=== PATIENT | male | born 1930 | race American Indian/Alaskan Native ===

== ENCOUNTER 2017-06-18 11:37 | Inpatient (IN) | payer MEDICARE, OTHER ==
[~2017-06-18] VITALS: Ht 188 cm; Wt 128.1 kg
--- OUTSIDE RECORDS SUMMARY | ~2017-06-18 | XMS | Clinical Summary ---
Demographics + + + | Address | [address] | | | [place] [address] | + + + | Home Phone | | + + + | Preferred Language | Unknown | + + + | Marital Status | | + + + | Christian Affiliation | Unknown | + + + [...] Phone | + + +---------+ + | Marcial FRANCIS | ECON | Unknown | | + + +---------+ + Care Team Providers + +------+ + | Care Library Specialist Name | Role | Phone | + +------+ + | No Pcp Per Patient | PP | Unavailable | + +------+ + Source Comments M[facility]IT is fully live on both [facility] Amb[facility] and [facility] InPatient.[facility]3] Allergies + + + + + + | Active Allergy | Reactions | Severity | Noted | Comments | | | | | Date | | + + + + + + | Morphine | Pruritus | | 02/16/20 | | | | | | 05 | | + + + + + + Current Medications + + +-------+---------+------+------+-------+ | Prescription | Sig. | Disp. | Refills | Star | End | Statu | | | | | | t | Date | s | | | | | | Date | | | + + +-------+---------+------+------+-------+ | VICODIN 5 MG-500 | 2 PO QID | | | | | Activ | | MG TAB | | | | | | e | + + +-------+---------+------+------+-------+ | NEURONTIN 600 MG | 2 PO TID | | | | | Activ | | TAB | | | | | | e | + + +-------+---------+------+------+-------+ | PAROXETINE HCL OR | None Entered | | | | | Activ | | | | | | | | e | + + +-------+---------+------+------+-------+ | METFORMIN 1,000 MG | 1 PO Q day | | | | | Activ | | TAB | | | | | | e | + + +-------+---------+------+------+-------+ | ASPIRIN 325 MG | 1 PO Q day | | | | | Activ | | ORAL TAB | | | | | | e | + + +-------+---------+------+------+-------+ | NAPROXEN MISC | unknown dose BID | | | | | Activ | | | | | | | | e | + + +-------+---------+------+------+-------+ Active Problems + + + | Problem | Noted Date | + + + | Postherpetic neuralgia | 2005 | + + + + + | Overview: Right C3 distribution | + + + + + | Diabetes mellitus, type II (HCC) | 2005 | + + + | Obesity | 2005 | + + + | Alcoholism (HCC) | 2005 | + + + + + | Overview: long-term remission | + + + + + | Old myocardial infarction | 2005 | + + + | Depression | 2005 | + + + | Diabetic neuropathy (HCC) | 2005 | + + + | [...] on file | | + + + Plan of Treatment + + + + + | Health Maintenance | Due Date | Last Done | Comments | + + + + + | INFLUENZA VACCINE | | | | | (FLU SHOT) | 7 | | | + + + + + Results Not on filefrom Last 3 Months"
--- OUTSIDE RECORDS SUMMARY | ~2017-06-18 | XMS | Clinical Summary ---
Demographics + + + | Address | [address] | | | [place] [address] | + + + | Home Phone | | + + + | Preferred Language | Unknown | + + + | Marital Status | | + + + | Latter-Day Affiliation | Unknown | + + + [...] Team Providers + +------+ + | Care Elevator Operator Freight Name | Role | Phone | + +------+ + | No Pcp Per Patient | PP | Unavailable | + +------+ + Source Comments MOHIT is fully live on both [facility] Amb[facility] and [facility] InPatient.[facility] Allergies + + + + + + [...]
--- OUTSIDE RECORDS SUMMARY | ~2017-06-18 | XMS | Clinical Summary ---
Demographics + + + | Address | [address] | | | [place] [address] | + + + | Home Phone | | + + + | Preferred Language | Unknown | + + + | Marital Status | | + + + | Tenriism Affiliation | Unknown | + + + [...] Team Providers + +------+ + | Care Clinical Geneticist Name | Role | Phone | + +------+ + | No Pcp Per Patient | PP | Unavailable | + +------+ + Source Comments MOHIT is fully live on both [facility] Ambulatory and [facility] InPatient.[facility] Allergies + + + + [...]
[~2017-06-18 11:37] MED LIST: ASPIRIN325 MG PO; B-12 DOTS500 MCG PO; CALTRATE 600 +1 EAC1 PO; COLACE100 MG PO; CYMBALTA30 MG PO; GLUCOPHAGE850 MG PO; HYDROCHLOROTHIA25 MG PO; LANTUS100 UNITS/ SUB-Q; MULTIVITAMINS1 EAC8 PO; PRILOSEC20 MG PO; SANCTURA XR60 MG PO; VITAMIN D2000 UNIT PO; ZESTRIL5 MG PO
[2017-06-18] MEDS ORDERED: SYNTHROID25 MCG PO (12:49)
[2017-06-20] MEDS ORDERED: GLUCOPHAGE850 MG PO (11:26)
[2017-06-20] MEDS ORDERED: VITAMIN B-12500 MCG PO (11:27)
[2017-06-20] MEDS ORDERED: NOVOLOG FL100 UNIT/1 SUB-Q (11:29)
[2017-06-22] MEDS ORDERED: CEFPODOXIME PR200 MG PO (12:08)
[2017-06-22] MEDS ORDERED: RELENZA5 MG INH (12:09)
[2017-06-22] MEDS ORDERED: METOPROLOL SUC100 MG PO (12:09)
== END 2017-06-22 13:35 | disposition home or self-care (01) | DRG 871 ==
LOC: ED 11:37 → CCU 16:15 → MS 06-19 18:20
PROVIDERS: ADMIT Internal Medicine
DX: A41.89 Other specified sepsis (principal); J09.X1 Influenza due to identified novel influenza A virus with pneumonia; G93.41 Metabolic encephalopathy; I47.1 Supraventricular tachycardia; I12.9 Hypertensive chronic kidney disease with stage 1 through stage 4 chronic kidney disease, or unspecified chronic kidney disease; N18.3 Chronic kidney disease, stage 3 (moderate); E11.9 Type 2 diabetes mellitus without complications; E03.9 Hypothyroidism, unspecified; F03.90 Unspecified dementia, unspecified severity, without behavioral disturbance, psychotic disturbance, mood disturbance, and anxiety; Z79.4 Long term (current) use of insulin; Z79.84 Long term (current) use of oral hypoglycemic drugs; Z88.0 Allergy status to penicillin; M25.561 Pain in right knee; M25.562 Pain in left knee; M25.572 Pain in left ankle and joints of left foot; M25.571 Pain in right ankle and joints of right foot; I27.20 Pulmonary hypertension, unspecified; L50.0 Allergic urticaria; T37.5X5A Adverse effect of antiviral drugs, initial encounter; R45.1 Restlessness and agitation
CPT/HCPCS: 36415; 51702; 51798; 71045; 73560; 73610; 73630; 80053; 81001; 83605; 83735; 83880; 85025; 87040; 87502; 93306; 94668; 97116; 97162; J0456; J0696; J1630; J1650; J1956; J3475; J7050; J7120

== ENCOUNTER 2018-09-27 20:10 | Inpatient (IN) | payer MEDICARE, OTHER ==
[~2018-09-27] VITALS: Ht 182.9 cm; Wt 129.5 kg
--- OUTSIDE RECORDS SUMMARY | ~2018-09-27 | XMS | Encounter Summary ---
Demographics + + + | Address | [address] | | | [place] [address] | + + + | Home Phone | | + + + | Preferred Language | Unknown | + + + | Marital Status | | + + + | Zoroastrian Affiliation | PRE | + + + | Race | White | + + + | Ethnic Group | Not or | + + + Author + + + | Author | [facility] | + + + | Organization | [facility] | + + + | Address | Unknown | + + + | Phone | Unavailable | + + + Support + + +---------+ + | Name | Relationship | Address | Phone | + + +---------+ + | Marnie Ontiveros | ECON | Unknown | | + + +---------+ + Care Team Providers + +------+ + | Care Body Maker Machine Setter Name | Role | Phone | + +------+ + PCP | Unavailable | + +------+ + Encounter Details +--------+ + + + + | Date | Type | Department | Care Team | Description | +--------+ + + + + | 02/15/ | Abstract | [facility] | Shelodn Hawkins MD | | | 2004 | | Center Outpatient | [address] | | | | | Therapy Center [address] | [place], [place] | | | | | [address] | [address] | | | | | Outpatient Therapy | [phone] | | | | | Center 2nd floor | | | | | | Mailcode: OP26 | | | | | | [place], [place] | | | | | | [address] | | | | | | [phone] | | | +--------+ + + + + Social History + +-------+ +--------+------+ | Tobacco Use | Types | Packs/Day | Years | Date | | | | | Used | | + +-------+ +--------+------+ | Never Assessed | | | | | + +-------+ +--------+------+ + + + | Sex Assigned at | Date Recorded | | | | + + + | Not on file | | + + + + + + + | Job Start Date | Occupation | Industry | + + + + | Not on file | Not on file | Not on file | + + + + + + + + | Travel History | Travel Start | Travel End | + + + + + + | No recent travel history available. | + + documented as of this encounter Plan of Treatment Not on filedocumented as of this encounter Visit Diagnoses Not on filedocumented in this encounter"
--- OUTSIDE RECORDS SUMMARY | ~2018-09-27 | XMS | Encounter Summary ---
Demographics + + + | Address | [address] | | | [place] [address] | + + + | Home Phone | | + + + | Preferred Language | Unknown | + + + | Marital Status | | + + + | Yarsanism Affiliation | PRE | + + + | Race | White | + + + | Ethnic Group | Not or | + + + Author + + + | Author | [facility] | + + + | Organization | [facility] | + + + | Address | Unknown | + + + | Phone | Unavailable | + + + Support + + +---------+ + | Name | Relationship | Address | Phone | + + +---------+ + | Marnie Ontiveros | ECON | Unknown | | + + +---------+ + Care Team Providers + +------+ + | Care Campaign Director Name | Role | Phone | + +------+ + | Christiano Wood DO | PCP | | + +------+ + Reason for Visit AUTH/CERT +--------+--------+ + + + + | Status | Reason | Specialty | Diagnoses / | Referred By | Referred To | | | | | Procedures | Contact | Contact | +--------+--------+ + + + + | | | | | | | +--------+--------+ + + + + Encounter Details +--------+ + + + + | Date | Type | Department | Care Team | Description | +--------+ + + + + | 03/09/ | Hospital | [facility] | Emil Parsons MD | | | 2018 | Encounter | [address] | | | | | [address] [place], [place] | | | | | [facility] | [address] | | | | | Rachel Jain | [phone] | | | | | [place] [id number] | | | | | | [phone] | | | +--------+ + + + + Social History + +-------+ +--------+------+ | Tobacco Use | Types | Packs/Day | Years | Date | | | | | Used | | + +-------+ +--------+------+ | Never Smoker | | | | | + +-------+ +--------+------+ + +---+---+---+ | Smokeless Tobacco: | | | | | Never Used | | | | + +---+---+---+ + + +---------+ + | Alcohol Use | Drinks/Week | oz/Week | Comments | + + +---------+ + | No | | | | + + +---------+ + + + + | Sex Assigned at [...] + + documented as of this encounter Last Filed Vital Signs + + + + + | Vital Sign | Reading | Time Taken | Comments | + + + + + | Blood Pressure | 130/68 | 03/09/2018 12:57 PM | | | | | PST | | + + + + + | Pulse | 57 | 03/09/2018 12:57 PM | | | | | PST | | + + + + + | Temperature | 36.5 C (97.7 F) | 03/09/2018 12:57 PM | | | | | PST | | + + + + + | Respiratory Rate | 16 | 03/09/2018 12:57 PM | | | | | PST | | + + + + + | Oxygen Saturation | 97% | 03/09/2018 12:57 PM | | | | | PST | | + + + + + | Inhaled Oxygen | - | - | | | Concentration | | | | + + + + + | Weight | 127 kg (280 lb) | 03/09/2018 10:09 AM | | | | | PST | | + + + + + | Height | 188 cm (6' 2") | 03/09/2018 10:09 AM | | | | | PST | | + + + + + | Body Mass Index | 35.95 | 03/09/2018 10:09 AM | | | | | PST | | + + + + + documented in this encounter Discharge Instructions Instructions Samia Gómez RN - 03/09/2018Home Care after Eyelid Surgery Do not drive, drink alcoholic beverages, sign legal documents or make major decisions ilene christianson the next 24 hours. Call your doctor if you notice any unusual symptoms. Remember: You are under the influence of medications. You may resume your normal diet and medications. Caring for Your Eyelid(s) Use ice packs intermittently (10 min. on and 10 min. off) as much as possible for the next 72 hours when awake. Dressings Wear eye patches at night while sleeping for one week to protect the incisions Eye Medication Apply eye ointment in BOTH eyes twice a day Apply ointment to suture line twice a day To help prevent infection: ? Always wash your hands before caring for your eyes or using eye medicine. ? Do not touch any part of your eye skin with the tip of the eye medicine bottle or tube. Avoid the following Rubbing your eye Do not lift anything over 20 lbs Swimming Sports or heavy exercise Eye makeup or lotions around eyes Dust, dirt or sand into the operated area Other Things to Remember Sleep on 2-3 pillows for the next week to minimize swelling Avoid direct sunlight. Wear a wide-brimmed hat or sunglasses if you must go in the sun. Do not use any aspirin, aspirin containing products or anti-inflammatory medications Call your doctor if Temperature above 101 degrees (fever) Purulent drainage (which is drainage that is whitish-vanegas or greenish in color) from the surgical site If there is increased redness at the edges of the surgical site Increased pain, even with pain medication Increasing pain, swelling or redness Any visual changes, some blurring is normal Extreme swelling, some swelling is normal How to reach your doctor Monday through Monday, 8am-5pm, call All other hours including after hours, weekends and holidays, call and ask t he shredder/granulator operator to page the Eye Doctor insolvency practitioner. documented in this encounter Medications at Time of Discharge + + + +---------+ + + | Medication | Sig | Dispensed | Refills | Start | End Date | | | | | | Date | | + + + +---------+ + + | ASPIRIN 325 MG | 1 PO Q day | | 0 | | | | ORAL TAB | | | | | | + + + +---------+ + + | cyanocobalamin 500 | Take 500 mcg by | | 0 | | | | mcg oral tablet | mouth once daily. | | | | | + + + +---------+ + + | DULoxetine 30 mg | Take 30 mg by mouth | | 0 | | | | oral capsule,delayed | once daily. | | | | | | release(DR/EC) | | | | | | + + + +---------+ + + | ergocalciferol | Take 2,000 Units by | | 0 | | | | (vitamin D2) | mouth. | | | | | | (VITAMIN D ORAL) | | | | | | + + + +---------+ + + | | Take 1 tablet by | 10 | 0 | 03/09/20 | | | HYDROcodone-acetamin | mouth every four | tablet | | 18 | | | ophen 5-325 mg oral | hours as needed for | | | | | | tablet | severe pain. Do not | | | | | | | exceed 3000mg | | | | | | | acetaminophen in a | | | | | | | 24 hour period | | | | | + + + +---------+ + + | insulin glargine | Inject under the | | 0 | | | | 100 unit/mL | skin (SUBC) once | | | | | | subcutaneous | daily at bedtime. | | | | | | solution | | | | | | + + + +---------+ + + | levothyroxine 25 | Take 25 mcg by mouth | | 0 | | | | mcg oral tablet | before breakfast. | | | | | + + + +---------+ + + | | Take 1 tablet by | | 0 | | | | losartan-hydrochloro | mouth once daily. | | | | | | thiazide 50-12.5 mg | | | | | | | oral tablet | | | | | | + + + +---------+ + + | METFORMIN 1,000 MG | 1 PO Q day | | 0 | | | | TAB | | | | | | + + + +---------+ + + | metoprolol | Take 50 mg by mouth | | 0 | | | | succinate 50 mg oral | once daily. | | | | | | tablet extended | | | | | | | release 24 hr | | | | | | + + + +---------+ + + | | Apply a thin film to | 3.5 g | 1 | 03/09/20 | | | nyfqkogl-yqxdxckrr-x | eyelid incisions | | | 18 | | | examethasone 3.5 | twice daily for two | | | | | | mg/g-10,000 | weeks. OK for | | | | | | unit/g-0.1 % | pharmacist to | | | | | | ophthalmic (eye) | substitute a | | | | | | ointment | different ophthalmic | | | | | | | ointment if needed | | | | | + + + +---------+ + + | NEURONTIN 600 MG | 2 PO TID | | 0 | | | | TAB | | | | | | + + + +---------+ + + | PAROXETINE HCL OR | None Entered | | 0 | | | + + + +---------+ + + documented as of this encounter Plan of Treatment Not on filedocumented as of this encounter Procedures + +--------+ + + + | Procedure Name | Priori | Date/Time | Associated Diagnosis | Comments | | | ty | | | | + +--------+ + + + | PROCEDURE NOTE | Routin | 03/09/2018 | | Results for this | | | e | 12:57 PM | | procedure are in the | | | | PST | | results section. | + +--------+ + + + | CAPILLARY BLOOD | Routin | 03/09/2018 | Degenerative | Results for this | | GLUCOSE (NO CHG), | e | 12:11 PM | disorder of eyelid | procedure are in the | | POC | | PST | | results section. | + +--------+ + + + | DIRECT BROWLIFT WITH | Electi | 03/09/2018 | Dermatochalasis of | | | BLEPHAROPLASTY | ve | 11:09 AM | both upper eyelids | | | | Surgic | PST | Brow ptosis | | | | al | | | | + +--------+ + + + +---+--------+ | | | | | Specia | | | l | | | Needs | | | CO2 | | | LASER | +---+--------+ + +--------+ +---+ + | CAPILLARY BLOOD | Routin | 03/09/2018 | | Results for this | | GLUCOSE (NO CHG), | e | 10:29 AM | | procedure are in the | | POC | | PST | | results section. | + +--------+ +---+ + documented in this encounter Results PROCEDURE NOTE (03/09/2018 12:57 PM PST) + + + | Narrative | Performed At | + + + | Emil Parsons MD 03/09/2018 2:02 PM Date of procedure: | | | 03/09/18 Attending Surgeon: Emil Parsons M.D. Preoperative | | | Diagnosis: 1. Bilateral brow ptosis 2. Bilateral upper lid | | | dermatochalasis Postoperative Diagnosis: 1. Bilateral brow | | | ptosis 2. Bilateral upper lid dermatochalasis Procedure: 1. | | | Bilateral direct brow lift 2. Bilateral upper lid blepharoplasty | | | Anesthesia: Local infiltration of a 1:1 mixture of 2% lidocaine with | | | epinephrine 1:100,000 and 0.5% Marcaine with Monitored Anesthesia | | | Care Estimated Blood Loss: Minimal Complications: None | | | Specimens: none Indications: This is a patient with bilateral | | | brow ptosis and upper lid dermatochalasis interfering with vision. | | | The procedure, alternatives and risks were discussed with the | | | patient at length, and the patient decided to proceed with surgery | | | as described below. The potential for prominent, permanent forehead | | | scars was discussed at length with the patient. Procedure: | | | Prior to the procedure, the operative plan and correct site were | | | confirmed by the surgeon. The patient was placed in the supine | | | position on the operating table. Attention was directed to the | | | temporal aspect of the brows, where a skin marking pen was used to | | | bernabe a supraciliary incision, and to the upper lids, where the | | | natural lid crease was marked. The amount of skin to be removed was | | | judged a ellipse was marked on each side. These areas were | | | infiltrated with the above named local anesthetic solution. | | | Attention was first directed to the left brow, where the CO2 laser | | | was used to incise the skin as marked. A sharp scissors was used to | | | excise a skin-fat flap, and meticulous hemostasis was maintained at | | | all times with judicious use of the cautery. Dissection continued | | | down to the orbital rim, where the arcus marginalis was released, | | | permitting elevation of the brow. The brow was lifted and secured to | | | the periosteum of the forehead with multiple 5-0 vicryl | | | sutures. The wound was then closed with multiple interrupted 5-0 | | | vicryl sutures in a layered, buried fashion. The skin was then | | | closed with a running horizontal mattress 5-0 fast absorbing gut | | | suture to deon the wound edges. Attention was then directed to | | | the right brow, where the CO2 laser was used to incise the skin as | | | marked. A sharp scissors was used to excise a skin-fat flap, and | | | meticulous hemostasis was maintained at all times with judicious use | | | of the cautery.Dissection continued down to the orbital rim, where | | | the arcus marginalis was released, permitting elevation of the brow. | | | The brow was lifted and secured to the periosteum of the forehead | | | with multiple 5-0 vicryl sutures. The wound was then closed | | | with multiple interrupted 5-0 vicryl sutures in a layered, buried | | | fashion. The skin was then closed with a running horizontal mattress | | | 5-0 fast absorbing gut suture to deon the wound edges. This | | | provided a nice symmetric elevation of the brows. Attention was | | | then directed to the right and left upper lids, where the amount of | | | skin to be removed with the blepharoplasty was marked using a | | | calipers. Eye mejia were placed and removed before the end of the | | | case. Attention was first directed to the right upper lid, where | | | the skin incisions were made with the CO2 laser. A high-temperature | | | cautery unit was used to excise a skin-muscle flap, and meticulous | | | hemostasis was maintained with judicious use of the cautery. The | | | orbital septum was incised,, and the central and nasal fat pads | | | were conservatively debulked. After meticulous hemostasis was | | | confirmed, the skin was closed with a running 5-0 fast absorbing gut | | | suture. Attention was then directed to the left upper lid where | | | the skin incisions were made with the CO2 laser. A high-temperature | | | cautery unit was used to excise a skin-muscle flap, and meticulous | | | hemostasis was maintained with judicious use of the cautery. The | | | orbital septum was incised, and the central and nasal fat pads were | | | conservatively debulked. After meticulous hemostasis was confirmed, | | | the skin was closed with a running 5-0 fast absorbing gut suture. | | | The drapes were removed, surgical area cleaned, and ophthalmic | | | ointment was applied to the wounds. The patient was awakened and | | | transported to the recovery room, having tolerated the procedure | | | well. Emil A. Parsons, M.D. Sports Attorney Ophthalmic | | | Facial Plastic and Reconstructive Surgery | | + + + CAPILLARY BLOOD GLUCOSE (NO CHG), POC (03/09/2018 12:11 PM PST) + +---------+ + + + | Component | Value | Ref Range | Performed | Pathologist | | | | | At | Signature | + +---------+ + + + | BLOOD | 129 (H) | 60 - 99 mg/dL | [facility] | | | GLUCOSE, | | | [place] | | | POC | | | [facility] | | | | | | OF CARE | | | | | | TESTS | | + +---------+ + + + + + | Specimen | + + | | + + + + + + + | Performing | Address | City/State/Zipcode | Phone Number | | Organization | | | | + + + + + | [facility] | [address] | [place], [place] | | | [facility] [place] | [facility] | [address] | | | TESTS | | | | + + + + + CAPILLARY BLOOD GLUCOSE (NO CHG), POC (03/09/2018 10:29 AM PST) + +---------+ + + + | Component | Value | Ref Range | Performed | Pathologist | | | | | At | Signature | + +---------+ + + + | BLOOD | 147 (H) | 60 - 99 mg/dL | [facility] | | | GLUCOSE, | | | [place] | | | POC | | | [facility] | | | | | | OF CARE | | | | | | TESTS | | + +---------+ + + + + + | Specimen | + + | | + + + + + + + | Performing | Address | City/State/Zipcode | Phone Number | | Organization | | | | + + + + + | [facility] | 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 | + + documented in this encounter Administered Medications + +--------+---------+------+------+------+ | Medication Order | MAR | Action | Dose | Rate | Site | | | Action | Date | | | | + +--------+---------+------+------+------+ + +---+ | HYDROcodone-acetaminophen | | | (NORCO) 5-325 mg tablet 1-2 | | | tablet 1-2 tablet, oral, | | | NEEDED, 1 dose, Starting Fri | | | 03/09/18 at 1200, Until Fri | | | 03/09/18 at 1859, post-op moderate | | | pain | | + +---+ | | | + +---+ | oxyCODONE (immediate release) | | | (ROXICODONE) tablet 5-10 mg 5-10 | | | mg, oral, NEEDED, 1 dose, | | | Starting Mon03/09/18 at 1200, | | | Until Mon03/09/18 at 1859, | | | post-op severe pain | | + +---+ | | | + +---+ + +---------+ + + +---+ | sodium chloride 0.9 % (NS) IV | New Bag | 03/09/20 | 10 mL/hr | 10 mL/hr | | | infusion 10 mL/hr, intravenous, | | 18 10:53 | | | | | CONTINUOUS, Starting Mon03/09/18 | | AM PST | | | | | at 1130, Until Mon03/09/18 at | | | | | | | 1859 | | | | | | + +---------+ + + +---+ +---+---+ | | | +---+---+ documented in this encounter
--- OUTSIDE RECORDS SUMMARY | ~2018-09-27 | XMS | Encounter Summary ---
Demographics + + + | Address | [address] | | | [place] [address] | + + + | Home Phone | | + + + | Preferred Language | Unknown | + + + | Marital Status | | + + + | Episcopal Affiliation | PRE | + + + | Race | White | + + + | Ethnic Group | Not or | + + + Author + + + | Author | [facility] | + + + | Organization | [facility] | + + + | Address | Unknown | + + + | Phone | Unavailable | + + + Support + + +---------+ + | Name | Relationship | Address | Phone | + + +---------+ + | Marnie Ontiveros | ECON | Unknown | | + + +---------+ + Care Team Providers + +------+ + | Care Network Administrator Name | Role | Phone | + +------+ + | Christiano Wood DO | PCP | | + +------+ + Encounter Details +--------+ + + + + | Date | Type | Department | Care Team | Description | +--------+ + + + + | 03/09/ | Pharmacy | [facility] | | | | 2018 | Visit | [address] | | | | | | [address] | | | | | | [place], [place] | | | | | | [address] | | | | | | [phone] | | | +--------+ + + + [...]
--- OUTSIDE RECORDS SUMMARY | ~2018-09-27 | XMS | Encounter Summary ---
Demographics + + + | Address | [address] | | | [place] [address] | + + + | Home Phone | | + + + | Preferred Language | Unknown | + + + | Marital Status | | + + + | Advent Affiliation | PRE | + + + | Race | White | + + + | Ethnic Group | Not or | + + + Author + + + | Author | [facility] | + + + | Organization | [facility] | + + + | Address | Unknown | + + + | Phone | Unavailable | + + + Support + + +---------+ + | Name | Relationship | Address | Phone | + + +---------+ + | Marnie Ontiveros | ECON | Unknown | | + + +---------+ + Care Team Providers + +------+ + | Care Pediatric Nurse Practitioner Name | Role | Phone | + +------+ + | Nina Christiano | PCP | | + +------+ + Encounter Details +--------+ + + + + | Date | Type | Department | Care Team | Description | +--------+ + + + + | 02/15/ | Ancillary | Registration [id number] | | | | 2004 | Registratio | Samina [address] | | | | | n | [facility] Mailcode: | | | | | | [id number] [place], [place] | | | | | | [address] | | | | | | [phone] | | | +--------+ + + + [...]
--- OUTSIDE RECORDS SUMMARY | ~2018-09-27 | XMS | Encounter Summary ---
Demographics + + + | Address | [address] | | | [place] [address] | + + + | Home Phone | | + + + | Preferred Language | Unknown | + + + | Marital Status | | + + + | Restoration Affiliation | PRE | + + + | Race | White | + + + | Ethnic Group | Not or | + + + Author + + + | Author | [facility] | + + + | Organization | [facility] | + + + | Address | Unknown | + + + | Phone | Unavailable | + + + Support + + +---------+ + | Name | Relationship | Address | Phone | + + +---------+ + | Marnie Ontiveros | ECON | Unknown | | + + +---------+ + Care Team Providers + +------+ + | Care Certified Novell Administrator Name | Role | Phone | + +------+ + | Christiano Wood DO | PCP | | + +------+ + Encounter Details +--------+---------+ + + + | Date | Type | Department | Care Team | Description | +--------+---------+ + + + | 01/16/ | Office | [facility] | Emil Parsons MD | Brow ptosis (Primary | | 2018 | Visit | [facility] | [address] | Dx); | | | | [address] | [place], [place] | Dermatochalasis of | | | | [facility] | [address] | both upper eyelids | | | | [facility] | [phone] | | | | | [place], [place] | | | | | | [address] | | | | | | [phone] | | | +--------+---------+ + + + Social History + +-------+ +--------+------+ | Tobacco Use | Types | Packs/Day | Years | Date | | | | | Used | | + +-------+ +--------+------+ | Never Smoker | | | | | + +-------+ +--------+------+ + +---+---+---+ | Smokeless Tobacco: | | | | | Never Used | | | | + +---+---+---+ + + + | Sex Assigned at [...] + + documented as of this encounter Progress Notes Ana Fuentes - 01/16/2018 10:40 AM PDT03/09/18 CEI Bilateral direct brow lift ( temporal) MAC Bilateral upper lid blepharoplasty Needs consent GaveLTP H&P w/ PCP HR post op On asa to check with doctor on directions on stopping Emil Grissom MD - 2017 10:40 AM PDT Abisai Ontiveros is a 87 y.o. male. Referred by: Trever Parker Pain: No pain (0 of 0-10) Patient is referred for evaluation of progressively droopy eyelids that interfere with visi on. This is bothersome all the time, interferes with the peripheral vision, especially notic es it when reading and driving, very bothersome. He notes he can see much better if he manually holds the saggy skin up. Denies myasthenia gravis symptoms, no current thyroid issues. Review of systems: Medications, allergies, medical, surgical and family history were review ed by me at this visit utilizing a written patient history form. Pertinent positives noted in history. All else unless noted was negative (fever, wt. change, ENT, cardiovascular, respiratory, GI , urinary, skin, muscle, bones, joints, neurologic, behavioral,endocrine, psychiatric, bleed ing/blood disorders, AIDS/HIV, cancer or tumors, arthritis) Pertinent positives in the family history noted in history. All else unless noted was negative (endocrine, cancer or tumors, cardiovascular, cataracts, retina, strabismus, amblyopia, low vision or blindness, refractive error, glaucoma, color o r night blindness or unexplained vision loss). Exam: The patient is alert and oriented x 3. Visual Acuity: Vacc PH RE LE 20/50 20/30 Pupil Exam: PERRL No APD Motility: RE LE 0 0 0 0 0 0 0 0 Lid Measurements: RE (mm) LE (mm) Sup SS Crease HT VPF 5 6 LF 15 15 MRDI 0 1 Inf SS Lag 0 0 The MRD1 improves when the weight of the brow ptosis and dermatochalasis is manually eleva enmanuel. Facial Exam: Brow ptosis compensated by frontalis effort. +temporal hooding impacting lateral gaze, worse on right Bilateral upper lid dermatochalasis with skin resting on lashes and mechanical ptosis Adenopathy: None SLE: C/S quiet without masses OU K clear without infiltrate OU AC Deep and quiet OU Iris without neovascularization OU Lens PCIOL OU Ta 14 OD 14 OS Posterior segment: M&N OU @ 10:50 Vitreous: clear, both eyes. Fundus: Optic disc: 0.3 cup/disc ratio, pink, flat, both eyes. Macula: no edema or exudates, both eyes. Vessels: no notching or hemorrhage, both eyes. Periphery: flat 360 without breaks or tears, both eyes. Basal Tear Secretion Test: RE 24, LE 24 External photos taken OU today. Photos demonstrate bilateral brow ptosis and upper lid lior matochalasis Visual field testing today with Goldmann III4e untaped and taped shows an improvement from 4 degrees above the horizon to 51 degrees OD and 11 degrees to 47 degrees OS. Impression: Bilateral brow ptosis, visually significant, with temporal hooding affecting lateral gaze Bilateral upper lid dermatochalasis, visually significant Plan: Bilateral direct brow lift (temporal) Bilateral upper lid blepharoplasty MAC The procedure, alternatives and risks were discussed with the patient, including potential need for additional surgery, bleeding, infection, vision loss including blindness, pain, ner ve damage, and asymmetry. Questions were answered and patient wishes to proceed with surgery . No anticoagulants including aspirin, NSAIDS, vitamin E, HERBS, etc. perioperatively. Encour aged patient to check with PCP regarding prescription anticoagulant use prior to surgery. We discussed that if the patient needs to stay on anticoagulants perioperatively, the patient understands and accepts the increased risk of complications. Physician attestation: I have reviewed and edited history and imaging technician documentation, and performed all elements to above examination documentation. Emil Parsons M.D. Correspondence Representative Ophthalmic Facial Plastic and Reconstructive Surgery documented in this encounter Plan of Treatment Not on filedocumented as of this encounter Procedures + +--------+ + + + | Procedure Name | Priori | Date/Time | Associated Diagnosis | Comments | | | ty | | | | + +--------+ + + + | PA EXTERNAL PHOTOS | Routin | 01/16/2018 | Brow ptosis | | | | e | 11:08 AM | Dermatochalasis of | | | | | PDT | both upper eyelids | | + +--------+ + + + documented in this encounter Visit Diagnoses + + | Diagnosis | + + | Brow ptosis - Primary Unspecified ptosis of eyelid | + + | Dermatochalasis of both upper eyelids | + + documented in this encounter"
--- OUTSIDE RECORDS SUMMARY | ~2018-09-27 | XMS | Encounter Summary ---
Demographics + + + | Address | [address] | | | [place] [address] | + + + | Home Phone | | + + + | Preferred Language | Unknown | + + + | Marital Status | | + + + | Hoahaoism Affiliation | PRE | + + + | Race | White | + + + | Ethnic Group | Not or | + + + Author + + + | Author | [facility] | + + + | Organization | [facility] | + + + | Address | Unknown | + + + | Phone | Unavailable | + + + Support + + +---------+ + | Name | Relationship | Address | Phone | + + +---------+ + | Marnie Ontiveros | ECON | Unknown | | + + +---------+ + Care Team Providers + +------+ + | Care Senior Licensing Manager Name | Role | Phone | + +------+ + | No Pcp Per Patient | PCP | Unavailable | + +------+ + Encounter Details +--------+ + + + + | Date | Type | Department | Care Team | Description | +--------+ + + + + | 04/02/ | Results | NON-[facility] | Ez Ruby MD | | | 2014 | Only | Department | [facility] PHYS[facility]IAN | | | | | | MED GROUP [address] | | | | | | [address] | | | | | | [place] | | | | | | [address] | | | | | | | | +--------+ + + + [...] | + +--------+ + + + | X-RAY EYE DETECTION | Priori | 04/02/2015 | | Results for this | | FOREIGN BODY BI | ty | 9:57 AM | | procedure are in the | | | | PST | | results section. | + +--------+ + + + documented in this encounter Results X-RAY EYE DETECTION FOREIGN BODY BI (04/02/2015 9:57 AM PST) + + + + + + | Component | Value | Ref Range | Performed | Pathologist | | | | | At | Signature | + + + + + + | EYE | EXAM: EYE DETECTION | | | | | DETECTION | FOREIGN BODY BI 04/02/15 | | | | | FOREIGN | 09:57:00 COMPARISON: | | | | | BODY BI | None. HISTORY: Evaluate | | | | | | for metallic orbital | | | | | | foreign body prior to | | | | | | MRI. FINDINGS AND | | | | | | IMPRESSION: No | | | | | | radiopaque orbital | | | | | | foreign body is | | | | | | present. Osseous | | | | | | structures | | | | | | areunremarkable. | | | | | | Attending Radiologists: | | | | | | ALISSA NORRIS MDAuthor: | | | | | | ALISSA NORRIS MD I | | | | | | personally reviewed the | | | | | | images and, if | | | | | | necessary, edited the | | | | | | report. I agreewith the | | | | | | report as now presented. | | | | | | | | | | | | Final/Electronically | | | | | | signed / ALISSA | | | | | | JR 04/02/2015 10:01 | | | | | | AM | | | | + + + + + + + + | Specimen | + + | | + + + +---------+ + + | Performing | Address | City/State/Zipcode | Phone Number | | Organization | | | | + +---------+ + + | [facility] DEPARTMENT OF | | | | | RADIOLOGY | | | | + +---------+ + + documented in this encounter Visit Diagnoses Not on filedocumented in this encounter"
--- OUTSIDE RECORDS SUMMARY | ~2018-09-27 | XMS | Encounter Summary ---
Demographics + + + | Address | [address] | | | [place] [address] | + + + | Home Phone | | + + + | Preferred Language | Unknown | + + + | Marital Status | | + + + | Mormon Affiliation | PRE | + + + | Race | White | + + + | Ethnic Group | Not or | + + + Author + + + | Author | [facility] | + + + | Organization | [facility] | + + + | Address | Unknown | + + + | Phone | Unavailable | + + + Support + + +---------+ + | Name | Relationship | Address | Phone | + + +---------+ + | Marnie Ontiveros | ECON | Unknown | | + + +---------+ + Care Team Providers + +------+ + | Care Permanent Mold Supervisor Name | Role | Phone | + +------+ + | Christiano Wood DO | PCP | | + +------+ + Reason for Referral Diagnostic Testing (Routine) +--------+--------+ + + + + | Status | Reason | Specialty | Diagnoses / | Referred By | Referred To | | | | | Procedures | Contact | Contact | +--------+--------+ + + + + | Closed | | Radiology | Diagnoses | [place], | | | | | | Acoustic | Ez Ceja MD | | | | | | neuroma | [facility] | | | | | | ([facility]) | PHYSICIAN | | | | | | Procedures | MED GROUP | | | | | | MRI BRAIN | [address] | | | | | | [address] | [address] | | | | | | | [place] | | | | | | | [place] | | | | | | | [address] | | | | | | | Phone: | | | | | | | [phone] | | | | | | | Fax: | | | | | | | [phone] | | +--------+--------+ + + + + Encounter Details +--------+ + + + + | Date | Type | Department | Care Team | Description | +--------+ + + + + | 03/16/ | Outside | Diagnostic Imaging | Ez Ruby MD | | | 2015 | Referral | Services at [facility] | [facility] PHYSICIAN | | | | Order | [address] | MED GROUP [facility] [address] | | | | | [facility] | [facility] [address] | | | | | Mailcode: [address] [facility] [address] | [place] | | | | | [facility], | [address] | | | | | [place] [address] | | | | | | [phone] | | | +--------+ + + + [...] Not on filedocumented as of this encounter Results MRI BRAIN WWO CONTRAST (04/02/2015 3:16 PM PST) + + + + + + | Component | Value | Ref Range | Performed | Pathologist | | | | | At | Signature | + + + + + + | MR BRAIN | A EXAM: MRI IAC | | | | | WWO | without and with | | | | | CONTRAST | contrast HISTORY: Left | | | | | | acoustic neuroma | | | | | | COMPARISON: No relevant | | | | | | priors. | | | | | | TECHNIQUE: Multiplana | | | | | | r multi-sequence MRI of | | | | | | the internal auditory | | | | | | canalswithout and with | | | | | | gadolinium based | | | | | | intravenous contrast. | | | | | | FINDINGS: Internal | | | | | | auditory canals | | | | | | including 7th and 8th | | | | | | nerves: Within the left | | | | | | internalauditory canal, | | | | | | there is a T2 | | | | | | hypointense enhancing | | | | | | ovoid nodule measuring | | | | | | 0.6x 1.3 cm which | | | | | | demonstrates a tail | | | | | | extending toward the | | | | | | vestibule.Cochlea: | | | | | | normalVestibule: | | | | | | normalSemicircular | | | | | | canals: | | | | | | normalEndolymphatic sac: | | | | | | not dilated Visualized | | | | | | brain and soft tissues: | | | | | | Periventricular and | | | | | | subcortical | | | | | | U3koyqlxwgieal foci are | | | | | | noted, likely secondary | | | | | | to small vessel ischemic | | | | | | change.No abnormal | | | | | | enhancing lesion | | | | | | identified within the | | | | | | brain parenchyma. 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 | | | | | | Attending Radiologists: | | | | | | RAPHAEL FOX, | | | | | | ALLEGRAuthor: STEPHIE | | | | | | MD MARILYN I | | | | | | [...] Final/Electronically | | | | | | sera / RAPHAEL | | | | | | DOMINIQUE 04/02/2015 17:19 | | | | | | PM Pending final | | | | | | approval / STEPHIE | | | | | | MARILYN 04/02/2015 | | | | | | 16:38 PM Preliminary | | | | | | / STEPHIE MARILYN | | | | | | 04/02/2015 16:17 PM | | | | + + + + + + + + | Specimen | + + | | + + + +---------+ + + | Performing | Address | City/State/Zipcode | Phone Number | | Organization | | | | + +---------+ + + | [facility] DEPARTMENT OF | | | | | RADIOLOGY | | | | + +---------+ + + documented in this encounter Visit Diagnoses + + | Diagnosis | + + | 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
--- OUTSIDE RECORDS SUMMARY | ~2018-09-27 | XMS | Encounter Summary ---
Demographics + + + | Address | [address] | | | [place] [address] | + + + | Home Phone | | + + + | Preferred Language | Unknown | + + + | Marital Status | | + + + | Yarsani Affiliation | Unknown | + + + | Race | Unknown | + + + | Ethnic Group | Unknown | + + + Author + + + | Author | [facility] | + + + | Organization | [facility] | + + + | Address | Unknown | + + + | Phone | Unavailable | + + + Support + + + + + | Name | Relationship | Address | Phone | + + + + + | Marcial Ontiveros | ECON | [address] | | | | | [place], | | | | | [place] [address] | | + + + + + Care Team Providers + +------+ + | Care Hog Man Name | Role | Phone | + +------+ + | Christiano Wood DO | PCP | | + +------+ + Reason for Visit +--------+ + | Reason | Comments | +--------+ + | Other | [facility] | +--------+ + Encounter Details +--------+ + + + + | Date | Type | Department | Care Team | Description | +--------+ + + + + | 07/05/ | Documentati | [facility] [place] | Nerissa Rodrigues, | Other ([facility] | | 2019 | on Only | [facility] [place] | [facility] | brandon) | | | | [address] | | | | | | [place], [place] | | | | | | [address] | | | | | | [phone] | | | +--------+ + + + [...] on file | | + + + as of this encounter Plan of Treatment +--------+---------+ + + + | Date | Type | Specialty | Care Team | Description | +--------+---------+ + + + | 12/13/ | Office | Cardiology | Pricilla Wahl DO | | | 2019 | Visit | | [address] | | | | | | [place] | | | | | | [id number] | | | | | | | | +--------+---------+ + + + as of this encounter Visit Diagnoses Not on filein this encounter"
--- OUTSIDE RECORDS SUMMARY | ~2018-09-27 | XMS | Encounter Summary ---
Demographics + + + | Address | [address] | | | [place] [address] | + + + | Home Phone | | + + + | Preferred Language | Unknown | + + + | Marital Status | | + + + | Jainism Affiliation | PRE | + + + [...] Team Providers + +------+ + | Care Non Categorical Preschool Teacher Name | Role | Phone | + +------+ + | No Pcp Per Patient | PCP | Unavailable | + +------+ + Encounter Details +--------+ + + + + | Date | Type | Department | Care Team | Description | +--------+ + + + + | 01/09/ | Abstract | [facility] | Emil Parsons MD | | | 2018 | | [place] | [address] | | | | | Oculoplastics at | Blvd [place], [place] | | | | | [facility] [address] | [address] | | | | | [address] [facility] | [phone] | | | | | Mailcode: [facility] | | | | | | [place], [place] | | | | | | [address] | | | | | | [phone] | | | +--------+ + + + [...]
--- OUTSIDE RECORDS SUMMARY | ~2018-09-27 | XMS | Encounter Summary ---
Demographics + + + | Address | [address] | | | [place] [address] | + + + | Home Phone | | + + + | Preferred Language | Unknown | + + + | Marital Status | | + + + | Hinduism Affiliation | PRE | + + + | Race | White | + + + | Ethnic Group | Not or | + + + Author + + + | Author | [facility] | + + + | Organization | [facility] | + + + | Address | Unknown | + + + | Phone | Unavailable | + + + Support + + +---------+ + | Name | Relationship | Address | Phone | + + +---------+ + | Marnie Ontiveros | ECON | Unknown | | + + +---------+ + Care Team Providers + +------+ + | Care Assessment Counselor Name | Role | Phone | + +------+ + | No Pcp Per Patient | PCP | Unavailable | + +------+ + Reason for Visit Diagnostic Testing (Routine) + +--------+ + + + + | Status | Reason | Specialty | Diagnoses / | Referred By | Referred To | | | | | Procedures | Contact | Contact | + +--------+ + + + + | Canceled | | Radiology | Diagnoses | [place], | | | | | | Acoustic | Ez Ceja MD | | | | | | neuroma | [facility] | | | | | | ([facility]) | PHYSICIAN | | | | | | Procedures | MED GROUP | | | | | | MRI BRAIN | [address] | | | | | | [address] | [address] | | | | | | | [place] | | | | | | | [place] | | | | | | | [address] | | | | | | | Phone: | | | | | | | [phone] | | | | | | | Fax: | | | | | | | [phone] | | + +--------+ + + + + Encounter Details +--------+ + + + + | Date | Type | Department | Care Team | Description | +--------+ + + + + | 04/02/ | Hospital | Radiology/Imaging | | Canceled (Scheduling | | 2014 | Encounter | Lab at [facility] [address] | | error) | | | | [address] | | | | | | Mailcode: [address] | | | | | | [facility] | | | | | | and Healing, 3rd | | | | | | Floor [place], [place] | | | | | | [address] | | | | | | [phone] | | | +--------+ + + + [...] + + documented as of this encounter Medications at Time of Discharge + + + +---------+--------+ + | Medication | Sig | Dispensed | Refills | Start | End Date | | | | | | Date | | + + + +---------+--------+ + | ASPIRIN 325 MG | 1 PO Q day | | 0 | | | | ORAL TAB | | | | | | + + + +---------+--------+ + | METFORMIN 1,000 MG | 1 PO Q day | | 0 | | | | TAB | | | | | | + + + +---------+--------+ + | NEURONTIN 600 MG | 2 PO TID | | 0 | | | | TAB | | | | | | + + + +---------+--------+ + | PAROXETINE HCL OR | None Entered | | 0 | | | + + + +---------+--------+ + documented as of this encounter Plan of Treatment Not on filedocumented as of this encounter Procedures + +--------+ + + + | Procedure Name | Priori | Date/Time | Associated Diagnosis | Comments | | | ty | | | | + +--------+ + + + | CREATININE, POC | Routin | 04/02/2015 | Acoustic neuroma | Results for this | | | e | 9:39 AM | (HCC) | procedure are in the | | | | PST | | results section. | + +--------+ + + + documented in this encounter Results ROUTINE CHEMISTRY TESTS (RADIOLOGY), POC (04/02/2015 9:39 AM PST) + +---------+ + + + | Component | Value | Ref Range | Performed | Pathologist | | | | | At | Signature | + +---------+ + + + | CREATININE, | 1.5 (H) | 0.7 - 1.3 mg/dL | [facility] | | | POC | | | POINT OF | | | | | | CARE TESTS | | + +---------+ + + + + + | Specimen | + + | | + + + + + + + | Performing | Address | City/State/Zipcode | Phone Number | | Organization | | | | + + + + + | [facility] | [address] | [place] [address] | | | OF CARE TESTS | | | | + + + + + documented in this encounter Visit Diagnoses + + | Diagnosis | + + | 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
--- OUTSIDE RECORDS SUMMARY | ~2018-09-27 | XMS | Encounter Summary ---
Demographics + + + | Address | [address] | | | [place] [address] | + + + | Home Phone | | + + + | Preferred Language | Unknown | + + + | Marital Status | | + + + | Synagogue Affiliation | PRE | + + + | Race | White | + + + | Ethnic Group | Not or | + + + Author + + + | Author | [facility] | + + + | Organization | [facility] | + + + | Address | Unknown | + + + | Phone | Unavailable | + + + Support + + +---------+ + | Name | Relationship | Address | Phone | + + +---------+ + | Marnie Ontiveros | ECON | Unknown | | + + +---------+ + Care Team Providers + +------+ + | Care Geothermal Electrical Engineer Name | Role | Phone | + [...] | | | | | n | [facility] Mailcode: | | | | | | [id number] [place], [place] | | | | | | [address] | | | | | | [phone] | | | +--------+ + + + [...]
--- OUTSIDE RECORDS SUMMARY | ~2018-09-27 | XMS | Encounter Summary ---
Demographics + + + | Address | [address] | | | [place] [address] | + + + | Home Phone | | + + + | Preferred Language | Unknown | + + + | Marital Status | | + + + | Jain Affiliation | PRE | + + + | Race | White | + + + | Ethnic Group | Not or | + + + Author + + + | Author | [facility] | + + + | Organization | [facility] | + + + | Address | Unknown | + + + | Phone | Unavailable | + + + Support + + +---------+ + | Name | Relationship | Address | Phone | + + +---------+ + | Marnie Ontiveros | ECON | Unknown | | + + +---------+ + Care Team Providers + +------+ + | Care Exchange Teller Name | Role | Phone | + +------+ + | Christiano Wood DO | PCP | | + +------+ + Reason for Visit + + + | Reason | Comments | + + + | Pre-Admission | | + + + Encounter Details +--------+ + + + + | Date | Type | Department | Care Team | Description | +--------+ + + + + | 01/19/ | PreAdmit | [facility] | Emil Parsons MD | Pre-Admission | | 2018 | Orders | [place] | [address] | | | | | Oculoplastics at | [address]vd [place], [place] | | | | | [address] | [address] | | | | | [address] | [phone] | | | | | Mailcode: [address] | | | | | | [place], [place] | | | | | | [address] | | | | | | [phone] | | | +--------+ + + + [...] filedocumented as of this encounter Visit Diagnoses + + | Diagnosis | + + | Degenerative disorder of eyelid - Primary Unspecified degenerative disorder of eyelid | + + documented in this encounter"
--- OUTSIDE RECORDS SUMMARY | ~2018-09-27 | XMS | Encounter Summary ---
Demographics + + + | Address | [address] | | | [place] [address] | + + + | Home Phone | | + + + | Preferred Language | Unknown | + + + | Marital Status | | + + + | Nondenominational Affiliation | Unknown | + + + | Race | Unknown | + + + | Ethnic Group | Unknown | + + + Author + + + | Author | [facility] | + + + | Organization | [facility] | + + + | Address | Unknown | + + + | Phone | Unavailable | + + + Support + + + + + | Name | Relationship | Address | Phone | + + + + + | Marcial Ontiveros | ECON | [address] | | | | | [place], | | | | | [place] [address] | | + + + + + Care Team Providers + +------+ + | Care Boat Worker Name | Role | Phone | + [...] + | 07/05/ | Documentati | [facility] [place] | Nerissa Rodrigues, | Other ([facility] | | 2019 | on Only | [facility] [place] | [facility] | brandon) | | | | [address] | | | | | | [place], [place] | | | | | | [address] | | | | | | [phone] | | | +--------+ + + + [...] [place] | | | | | | [id number] | | | | | | | | +--------+---------+ + + + as of this encounter Visit Diagnoses Not on filein this encounter"
--- OUTSIDE RECORDS SUMMARY | ~2018-09-27 | XMS | Encounter Summary ---
Demographics + + + | Address | [address] | | | [place] [address] | + + + | Home Phone | | + + + | Preferred Language | Unknown | + + + | Marital Status | | + + + | Mandaeism Affiliation | PRE | + + + | Race | White | + + + | Ethnic Group | Not or | + + + Author + + + | Author | [facility] | + + + | Organization | [facility] | + + + | Address | Unknown | + + + | Phone | Unavailable | + + + Support + + +---------+ + | Name | Relationship | Address | Phone | + + +---------+ + | Marnie Ontiveros | ECON | Unknown | | + + +---------+ + Care Team Providers + +------+ + | Care Imcu Specialist Name | Role | Phone | + [...] Pre-Admission | | 2018 | Orders | [place] | [address] | | | | | Oculoplastics at | Blvd [place], [place] | | | | | [address] | [address] | | | | | [address] | [phone] | | | | | Mailcode: [address] | | | | | | [place], [place] | | | | | | [address] | | | | | | [phone] | | | +--------+ + + + [...]
--- OUTSIDE RECORDS SUMMARY | ~2018-09-27 | XMS | Encounter Summary ---
Demographics + + + | Address | [address] | | | [place] [address] | + + + | Home Phone | | + + + | Preferred Language | Unknown | + + + | Marital Status | | + + + | Temple Affiliation | PRE | + + + | Race | White | + + + | Ethnic Group | Not or | + + + Author + + + | Author | [facility] | + + + | Organization | [facility] | + + + | Address | Unknown | + + + | Phone | Unavailable | + + + Support + + +---------+ + | Name | Relationship | Address | Phone | + + +---------+ + | Marnie Ontiveros | ECON | Unknown | | + + +---------+ + Care Team Providers + +------+ + | Care Med Admin Name | Role | Phone | + +------+ + PCP | Unavailable | + +------+ + Encounter Details +--------+ + + + + | Date | Type | Department | Care Team | Description | +--------+ + + + + | 04/19/ | Office | [facility] | Note, Outpatient | Progress Note | | 2000 | Visit-Trans | MEDICINE | Clinic | | | | cribed | | | | +--------+ + + [...] documented as of this encounter Progress Notes Interface, Poison Information Specialist In - 01/23/2006 2:33 AM PDTCLINIC DATE: 04/19/2001 OTOLARYNGOLOGY CLINIC SUBJECTIVE: Mr. Ontiveros is a 71-year-old [place]ian male who about 5 years ago noted a slight decrease in his hearing in the left ear. He was able to hear out of it, but there was a mild distortion. He did not follow through. This was noted on audiogram but no workup was done at particular time, and he has been followed subsequent to that. He has some dizziness off and on for about a year which is related to his diabetes and was mainly lightheadedness. He had no difficulty or instability walking, however. Occasionally, he has noted recently some tinnitus involving the left ear which is mild. He has basically been almost completely asymptomatic. PAST MEDICAL HISTORY: His past history is negative for ear disease. He does have past history of head injury with being knocked out on several occasions over 20 years ago. At that time, he had some difficulty with alcohol. 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 FAMILY HISTORY: Positive for hearing loss both in his mother and his father. 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 He had an MRI which was done in [place] and tends to show a small lesion in the left internal auditory canal. He is being seen for second opinion with regards to this lesion. REVIEW OF SYSTEMS: He has had EKG several years ago which demonstrated an old heart attack, but he has never had any problems or symptoms related to his heart. No history of high blood pressure. Diabetes was diagnosed about a year ago. He has had recurrent back problem from one time to another starting way back in his 50s and some degenerative disk problems. This is usually associated with sudden onset of inability to move for several days. He denies any pulmonary disease. He has had no gastrointestinal complaints. No genitourinary problems and no neurologic disorders. MEDICATIONS: Metformin 850 mg a day for his diabetes and 1 aspirin a day. PREVIOUS SURGERY: He had knee replacement in 1997. ALLERGIES: HE STATES THAT HE HAS DRUG ALLERGY AND INTOLERANCE TO ALCOHOL. No other medications or allergies. He has had no food allergies and no pollen allergies. SOCIAL HISTORY: He does not smoke. Alcohol: He has taken no alcohol for 20 years, and this is his anniversary day. He takes 5 cups of coffee a day. PHYSICAL EXAMINATION: GENERAL: A very pleasant, alert 71-year-old [place]ian male in no acute distress. HEENT: Ears: Tympanic membranes are intact and normal bilaterally. The canals are clean. There is no dizziness with movement. Nose: Clear without obstruction. Mouth: He is dentulous upper, partial lower. He has good mucosal appearance and good moisture. There is good palatal movement. NECK: He is very heavy-necked individual with some diffuse parotid swelling bilaterally; however, no lesions are palpable. His thyroid is not enlarged. EXTREMITIES: He is able to perform Romberg and tandem Romberg without difficulty, and his gait is within normal. He did not describe historically in review any significant balance disorders. DIAGNOSTIC DATA: His audiogram today was repeated showing a rather profound nerve sensory loss with a SRT of 70 on the left and a discrimination today of only 28%. On the right, he has an high-frequency loss above 1000 Hz, but he still has a 35 dB SRT and an 80% discrimination. 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 He also has a left maxillary retention cyst. This tumor appears to be contained within the internal auditory canal, although it is coming just to the mouth of the porus acusticus. ASSESSMENT AND PLAN: At his age, there are several options. He did have asymmetric hearing loss noted about 5 years age ago, and this is documented, so he has a long history of progressive hearing loss which may have been represented by very very slow growth of this tumor, so obviously an option is one of observation and repeat MRI in 1 year. The only disadvantage to this is that the tumor at present time is quite small. It is only coming to the porus acusticus, and that could be removed either by middle meatal or translabyrinthine approach which is somewhat easier and safer for facial nerve. His other options would include translabyrinthine removal of the tumor which probably would be preferable since he has no usable hearing retained in that ear. Posterior fossa and retrolabyrinthine approach is possible, but the lesion extends extremely out to the most lateral portion of the internal auditory canal. Gamma knife therapy was discussed with him in its detail too. This also is a possibility for him, although his hearing will probably be destroyed in this, and if he had revision or recurrent disease it would be difficult to remove the tumor without facial nerve injury. I talked to him to at length about all the potential possibilities and told him that the discussion should probably centered between a translabyrinthine removal of the tumor and/or observation. He will think about this. He was given literature regarding acoustic neuroma, and I told him that if he wanted even further evaluation as to approach or whether or not surgery was indicated, I would not feel uncomfortable if he sought additional opinion. Because of his age of 71 and his history, one might be inclined to observe for a while and repeat his films in another 6 to 9 months. I think this will be done where higher quality and thin cuts can be made through the internal auditory canal. He was discharged with the thought that he would take in the consideration my opinions with regard to it and will be contacting us. Agapito Catherine M.D. MEDARDO / JOHNNA [id number] / [id number] / [id number] / [id number] cc: [place] [address] Tom Ott M.D. [address] [place] [address] [address] [place] [address] [id number] signed by Interface, Poison Information Specialist In at 01/23/2006 2:[address] [facility] in this encounter Plan of Treatment Not on filedocumented as of this encounter Visit Diagnoses Not on filedocumented in this encounter
--- OUTSIDE RECORDS SUMMARY | ~2018-09-27 | XMS | Encounter Summary ---
Demographics + + + | Address | [address] | | | [place] [address] | + + + | Home Phone | | + + + | Preferred Language | Unknown | + + + | Marital Status | | + + + | Muslim Affiliation | PRE | + + + | Race | White | + + + | Ethnic Group | Not or | + + + Author + + + | Author | [facility] | + + + | Organization | [facility] | + + + | Address | Unknown | + + + | Phone | Unavailable | + + + Support + + +---------+ + | Name | Relationship | Address | Phone | + + +---------+ + | Marnie Ontiveros | ECON | Unknown | | + + +---------+ + Care Team Providers + +------+ + | Care Electric Gas Appliances Demonstrator Name | Role | Phone | + +------+ + | Nina Christiano | PCP | | + +------+ + Encounter Details +--------+ + + + + | Date | Type | Department | Care Team | Description | +--------+ + + + + | 03/09/ | Procedure | [facility] | | | | 2018 | Pass | [address] | | | | | | [place] | | | | | | [facility], | | | | | | [place] [address] | | | +--------+ + + + [...]
--- OUTSIDE RECORDS SUMMARY | ~2018-09-27 | XMS | Encounter Summary ---
Demographics + + + | Address | [address] | | | [place] [address] | + + + | Home Phone | | + + + | Preferred Language | Unknown | + + + | Marital Status | | + + + | Tenriism Affiliation | PRE | + + + [...] Team Providers + +------+ + | Care Social Security Benefits Interviewer Name | Role | Phone | + +------+ + | Christiano Wood DO | PCP | | + +------+ + Encounter Details +--------+---------+ + + + | Date | Type | Department | Care Team | Description | +--------+---------+ + + + | 03/20/ | Office | [facility] | Emil Parsons MD | Dermatochalasis of | | 2018 | Visit | [facility] | [address] | both upper eyelids | | | | [address] | [address] [place], [place] | (Primary Dx) | | | | [facility] | [address] | | | | | [facility] | [phone] | | | | | [place] | | | | | | [address] | | | | | | [phone] | | | +--------+---------+ + + + [...] documented as of this encounter Progress Notes Emil Parsons MD - 03/20/2018 9:00 AM PSTFormatting of this note might be different from t he original. Abisai Ontiveros is a 88 y.o. male. Referred by: Trever Parker Pain: No pain (0 of 0-10) Patient is here 11 days s/p Procedure: 03/09/18 Dr. Parsons 1. Bilateral direct brow lift 2. Bilateral upper lid blepharoplasty Patient doing well, already pleased with the improvement in vision. No concerns. Exam: Vision intact Lid Measurements: RE (mm) LE (mm) Sup SS Crease HT VPF 8 8 LF MRDI 3 3 Inf SS Lag 0 0 Incisions healing well Expected postop edema, ecchymosis SLE: C/S quiet OU K clear OU AC D&Q OU Iris nl OU Impression: 1. Doing well 11 days s/p bilateral brow lift and upper lid blepharoplasty 03/09/18 2. History of bilateral brow ptosis and upper lid dermatochalasis, visually significant Plan: Reviewed po instructions F/u with Dr. Parker for eye care RTC with ne prn Physician attestation: I have reviewed and edited history and plant technician documentation, and performed all elements to above examination documentation. Emil Parsons M.D. 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
--- OUTSIDE RECORDS SUMMARY | ~2018-09-27 | XMS | Encounter Summary ---
Demographics + + + | Address | [address] | | | [place] [address] | + + + | Home Phone | | + + + | Preferred Language | Unknown | + + + | Marital Status | | + + + | Uatsdin Affiliation | PRE | + + + | Race | White | + + + | Ethnic Group | Not or | + + + Author + + + | Author | [facility] | + + + | Organization | [facility] | + + + | Address | Unknown | + + + | Phone | Unavailable | + + + Support + + +---------+ + | Name | Relationship | Address | Phone | + + +---------+ + | Marnie Ontiveros | ECON | Unknown | | + + +---------+ + Care Team Providers + +------+ + | Care Grocery Store Bagger Name | Role | Phone | + [...] | | | | | | [address] [place], [place] | | | | | | [address] | | | | | | [phone] | | | +--------+ + + + [...]
--- OUTSIDE RECORDS SUMMARY | ~2018-09-27 | XMS | Encounter Summary ---
Demographics + + + | Address | [address] | | | [place] [address] | + + + | Home Phone | | + + + | Preferred Language | Unknown | + + + | Marital Status | | + + + | Roman Catholic Affiliation | Unknown | + + + | Race | Unknown | + + + | Ethnic Group | Unknown | + + + Author + + + | Author | [facility] | + + + | Organization | [facility] | + + + | Address | Unknown | + + + | Phone | Unavailable | + + + Support + + + + + | Name | Relationship | Address | Phone | + + + + + | Marcial Ontiveros | ECON | [address] | | | | | [place], | | | | | [place] [address] | | + + + + + Care Team Providers + +------+ + | Care Floatman Name | Role | Phone | + [...] + | 07/05/ | Documentati | [facility] | Nerissa Rodrigues, | Other ([facility] | | 2019 | on Only | [facility] [place] | [facility] | brandon) | | | | [address] | | | | | | [place], [place] | | | | | | [address] | | | | | | [phone] | | | +--------+ + + + [...] [place] | | | | | | [address] | | | | | | | | +--------+---------+ + + + as of this encounter Visit Diagnoses Not on filein this encounter"
--- OUTSIDE RECORDS SUMMARY | ~2018-09-27 | XMS | Encounter Summary ---
Demographics + + + | Address | [address] | | | [place] [address] | + + + | Home Phone [...] + + + | Author | [facility] | + + + | Organization | [facility] | + + + | Address | Unknown | + + + | Phone | Unavailable | + + + Support + + +---------+ + | Name | Relationship | Address | Phone | + + +---------+ + | Marnie Ontiveros | ECON | Unknown | | + + +---------+ + Care Team Providers + +------+ + | Care Record Changer Name | Role | Phone | + [...] | | | | | n | [facility] Mailcode: | | | | | | [address] [place], [place] | | | | | | [address] | | | | | | [phone] | | | +--------+ + + + [...]
--- OUTSIDE RECORDS SUMMARY | ~2018-09-27 | XMS | Clinical Summary ---
Demographics + + + | Address | [address] | | | [place] [address] | + + + | Home Phone | | + + + | Preferred Language | Unknown | + + + | Marital Status | | + + + | Mormon Affiliation | PRE | + + + | Race | White | + + + | Ethnic Group | Not or | + + + Author + + + | Author | [facility] | + + + | Organization | [facility] | + + + | Address | Unknown | + + + | Phone | Unavailable | + + + Support + + +---------+ + | Name | Relationship | Address | Phone | + + +---------+ + | Marnie Ontiveros | ECON | Unknown | | + + +---------+ + Care Team Providers + +------+ + | Care Rn Neurosurgical Name | Role | Phone | + +------+ + | Christiano Wood DO | PP | | + +------+ + Source Comments MOHIT is fully live on both [facility] and [facility] InPatient.[facility] Allergies + + + + + + | Active Allergy | Reactions | Severity | Noted | Comments | | | | | Date | | + + + + + + | Morphine | Pruritus | | 02/16/20 | | | | | | 05 | | + + + + + + | Oseltamivir | Pruritus | | 03/09/20 | | | | | | 18 | | + + + + + + Medications + + + +---------+------+------+-------+ | Medication | Sig | Dispensed | Refills | Star | End | Statu | | | | | | t | Date | s | | | | | | Date | | | + + + +---------+------+------+-------+ | NEURONTIN 600 MG | 2 PO TID | | 0 | | | Activ | | TAB | | | | | | e | + + + +---------+------+------+-------+ | PAROXETINE HCL OR | None Entered | | 0 | | | Activ | | | | | | | | e | + + + +---------+------+------+-------+ | METFORMIN 1,000 MG | 1 PO Q day | | 0 | | | Activ | | TAB | | | | | | e | + + + +---------+------+------+-------+ | ASPIRIN 325 MG | 1 PO Q day | | 0 | | | Activ | | ORAL TAB | | | | | | e | + + + +---------+------+------+-------+ | | Take 1 tablet by | 10 | 0 | 11/0 | | Activ | | HYDROcodone-acetamin | mouth every four | tablet | | 9/20 | | e | | ophen 5-325 mg oral | hours as needed for | | | 18 | | | | tablet | severe pain. Do not | | | | | | | | exceed 3000mg | | | | | | | | acetaminophen in a | | | | | | | | 24 hour period | | | | | | + + + +---------+------+------+-------+ | | Apply a thin film to | 3.5 g | 1 | 11/0 | | Activ | | iatcjjcw-bqmzbemzm-e | eyelid incisions | | | 9/20 | | e | | examethasone 3.5 | twice daily for two | | | 18 | | | | mg/g-10,000 | weeks. OK for | | | | | | | unit/g-0.1 % | pharmacist to | | | | | | | ophthalmic (eye) | substitute a | | | | | | | ointment | different ophthalmic | | | | | | | | ointment if needed | | | | | | + + + +---------+------+------+-------+ | levothyroxine 25 | Take 25 mcg by mouth | | 0 | | | Activ | | mcg oral tablet | before breakfast. | | | | | e | + + + +---------+------+------+-------+ | DULoxetine 30 mg | Take 30 mg by mouth | | 0 | | | Activ | | oral capsule,delayed | once daily. | | | | | e | | release(DR/EC) | | | | | | | + + + +---------+------+------+-------+ | ergocalciferol | Take 2,000 Units by | | 0 | | | Activ | | (vitamin D2) | mouth. | | | | | e | | (VITAMIN D ORAL) | | | | | | | + + + +---------+------+------+-------+ | metoprolol | Take 50 mg by mouth | | 0 | | | Activ | | succinate 50 mg oral | once daily. | | | | | e | | tablet extended | | | | | | | | release 24 hr | | | | | | | + + + +---------+------+------+-------+ | cyanocobalamin 500 | Take 500 mcg by | | 0 | | | Activ | | mcg oral tablet | mouth once daily. | | | | | e | + + + +---------+------+------+-------+ | insulin glargine | Inject under the | | 0 | | | Activ | | 100 unit/mL | skin (SUBC) once | | | | | e | | subcutaneous | daily at bedtime. | | | | | | | solution | | | | | | | + + + +---------+------+------+-------+ | | Take 1 tablet by | | 0 | | | Activ | | losartan-hydrochloro | mouth once daily. 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 | + + Last Filed Vital Signs + + + [...] | | + + + + + Plan of Treatment + + + + + | Health Maintenance | Due Date | Last Done | Comments | + + + + + | Pneumococcal | | | | | vaccination (1 of 2 | 5 | | | | - PCV13) | | | | + + + + + | Influenza (Flu) | Completed | 01/25/2018, 02/12/2017, | | | vaccination | | 03/07/2016, Additional history | | | | | exists | | + + + + + Results Not on filefrom Last 3 Months Insurance + +--------+ +--------+ + +--------+ | Payer | Benefi | Subscriber | Effect | Phone | Address | Type | | | t Plan | ID | ninoska | | | | | | / | | Dates | | | | | | Group | | | | | | + +--------+ +--------+ + +--------+ | MEDICARE | MEDICA | xxxxxxxxxxx | 10/30/19 | [phone] | [address] | [address] | | | RE A & | | 00-Pre | [id number] | [address] | | | [address] | | sent | | [place] | | | | | | | | [id number] | | + +--------+ +--------+ + +--------+ | [employer] | [employer] | xxxxxxxxx | 05/01/19 | | | Agency | | SERVICE | | | 18-Pre | | | | | | HEALTH | | sent | | | | | | | | | | | | | | SERVIC | | | | | | | | E | | | | | | + +--------+ +--------+ + +--------+ + +--------+ +--------+ + + | Guarantor Name | Accoun | Relation to | Date | Phone | Billing Address | | | t Type | Patient | of | | | | | | | | | | + +--------+ +--------+ + + | Abisai Ontiveros | Person | Self [birth year] | [address] | | | al/Fam | | 1930 | [phone] | [address] | | | uma | | | [address] (Home) | [place] [address] | + +--------+ +--------+ + + | Abisai Ontiveros | Agency | Self | [birth year] | [address] | | | | | 1930 | [phone] | [address] | | | | | | [address] (Home) | [place] [address] | + +--------+ +--------+ + +
--- OUTSIDE RECORDS SUMMARY | ~2018-09-27 | XMS | Encounter Summary ---
Demographics + + + | Address | [address] | | | [place] [address] | + + + | Home Phone | | + + + | Preferred Language | Unknown | + + + | Marital Status | | + + + | Yazidism Affiliation | PRE | + + + | Race | White | + + + | Ethnic Group | Not or | + + + Author + + + | Author | [facility] | + + + | Organization | [facility] | + + + | Address | Unknown | + + + | Phone | Unavailable | + + + Support + + +---------+ + | Name | Relationship | Address | Phone | + + +---------+ + | Marnie Ontiveros | ECON | Unknown | | + + +---------+ + Care Team Providers + +------+ + | Care Doorshaker Name | Role | Phone | + +------+ + | Christiano Wood DO | PCP | | + +------+ + Encounter Details +--------+ + + + + | Date | Type | Department | Care Team | Description | +--------+ + + + + | 03/14/ | Telephone | [facility] | Emil Parsons MD | | | 2018 | | [place] | [address] | | | | | Oculoplastics at | [address] [place], [place] | | | | | [facility] [address] | [address] | | | | | [address] [facility] | [phone] | | | | | Mailcode: [address] | | | | | | [place], [place] | | | | | | [address] | | | | | | [phone] | | | +--------+ + + + [...]
--- OUTSIDE RECORDS SUMMARY | ~2018-09-27 | XMS | Encounter Summary ---
Demographics + + + | Address | [address] | | | [place] [address] | + + + | Home Phone | | + + + | Preferred Language | Unknown | + + + | Marital Status | | + + + | Amish Affiliation | Unknown | + + + | Race | Unknown | + + + | Ethnic Group | Unknown | + + + Author + + + | Author | [facility] | + + + | Organization | [facility] | + + + | Address | Unknown | + + + | Phone | Unavailable | + + + Support + + + + + | Name | Relationship | Address | Phone | + + + + + | Marcial Ontiveros | ECON | [address] | | | | | [place], | | | | | [place] [address] | | + + + + + Care Team Providers + +------+ + | Care Program Officer Name | Role | Phone | + +------+ + | Christiano Wood DO | PCP | | + +------+ + Reason for Referral Nuclear Medicine (Routine) + +--------+ + + + + | Status | Reason | Specialty | Diagnoses / | Referred By | Referred To | | | | | Procedures | Contact | Contact | + +--------+ + + + + | Pending | | | Diagnoses | Maryuri, | | | Review | | | Abnormal | DO Pricilla | | | | | | EKG Chest | [address] | | | | | | pain, | [address] | | | | | | unspecified | [address] [address] | | | | | | type | [place] | | | | | | Procedures | [id number] | | | | | | [place] | Phone: | | | | | | [employer]ic | [phone] | | | | | | al (stress | Fax: | | | | | | and rest) | [phone] | | + +--------+ + + + + Reason for Visit Consult and Treat (Routine) +--------+--------+ + + + + | Status | Reason | Specialty | Diagnoses / | Referred By | Referred To | | | | | Procedures | Contact | Contact | +--------+--------+ + + + + | Closed | | Cardiology | Diagnoses | Nina, | Wahl, | | | | | R94.31 | DO Christiano | DO Pricilla | | | | | (ICD-10-CM) | [address] | [address] | | | | | - Abnormal | [address] | [place] | | | | | electrocardi | [address] | [place], [place] | | | | | ogram (ECG) | [place], | [address] Phone: | | | | | (EKG | [place] [address] | [phone] | | | | | Procedures | Phone: | Fax: | | | | | CRD CONSULT | [phone] | [phone] | | | | | | Fax: | | | | | | | [phone] | | +--------+--------+ + + + + Encounter Details +--------+ + + + + | Date | Type | Department | Care Team | Description | +--------+ + + + + | 08/30/ | Initial | [facility] | Pricilla Wahl DO | Abnormal EKG | | 2019 | consult | Cardiology [place] | [address] | (Primary Dx); Chest | | | | [address] | [facility] | pain, unspecified | | | | Way [address] | [id number] | type; RBBB (right | | | | [place] [address] | | bundle branch block | | | | [phone] | | with left anterior | | | | | | fascicular block); | | | | | | PVC's (premature | | | | | | ventricular | | | | | | contractions); | | | | | | Hypertension, | | | | | | unspecified type | +--------+ + + + + Social [...] + +---------+ + | Alcohol Use | Drinks/We | oz/Week | Comments | | | ek | | | + + +---------+ + | No | | | | + + +---------+ + + + + | Sex Assigned at | Date Recorded | | | | + + + | Not on file | | + + + as of this encounter Last Filed Vital Signs + + + + | Vital Sign | Reading | Time Taken | + + + + | Blood Pressure | 108/58 | 08/30/2018 10:26 AM PDT | + + + + | Pulse | 72 | 08/30/2018 10:26 AM PDT | + + + + | Temperature | - | - | + + + + | Respiratory Rate | - | - | + + + + | Oxygen Saturation | 96% | 08/30/2018 10:26 AM PDT | + + + + | Inhaled Oxygen | - | - | | Concentration | | | + + + + | Weight | 130 kg (286 lb 9.6 | 08/30/2018 10:26 AM PDT | | | oz) | | + + + + | Height | 188 cm (6' 2") | 08/30/2018 10:26 AM PDT | + + + + | Body Mass Index | 36.8 | 08/30/2018 10:26 AM PDT | + + + + in this encounter Progress Notes Pricilla WahlDO - 08/30/2018 10:00 AM PDTFormatting of this note may be different from th e original. 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 The patient reports that lately he has been doing okay. He came d own with a bad case of pneumonia a little over a year ago and reports that he has been a lit tle slow ever since. He gets around in a wheelchair or ambulates with a walker mainly due t o bilateral knee pain. He has been going to physical therapy for his knees. He reports mehdi t about 3 days ago he had some episodes of chest discomfort. The chest pain was substernal without radiation. It lasted about 30 minutes at a time and noted to wax and wane. He did not notice any specific association with exertion. He denied any specific aggravating or al leviating factors. The patient denies any episodes of syncope or presyncope. He occasional ly gets lower extremity swelling, which goes away by the end of the day. He has noticed bhargavi e shortness of breath with physical therapy, but denies any orthopnea. His weights have bee n stable. Review of Systems Constitutional: Negative for fatigue. HENT: Negative for nosebleeds. Eyes: Negative for visual disturbance. Respiratory: Negative for cough and positive for mild HOPKINS Cardiovascular: See HPI Gastrointestinal: Negative for nausea, vomiting, abdominal pain and blood in stool. Genitourinary: Negative for hematuria or dysuria. Musculoskeletal: Negative for myalgias, back pain. He has arthritis in his knees. Skin: Negative for color change. Neurological: Negative for dizziness, syncope and numbness. Hematological: Does not bruise/bleed easily. Psychiatric/Behavioral: The patient is not nervous/anxious. PAST MEDICAL & SURGICAL HISTORY Past Medical History Diagnosis Date Acoustic neuroma (HCC) Alcoholism (HCC) Chronic kidney disease Depression GERD (gastroesophageal reflux disease) Hearing deficit Hypertension Hypothyroid Neuralgia Osteopenia Peripheral neuropathy POLST (Physician Orders for Life-Sustaining Treatment) Sleep apnea Type 2 diabetes mellitus (HCC) Urinary incontinence Visual disturbance Vitamin B12 deficiency Past Surgical History Procedure Laterality Date broke toes and straitened them out surgery bunion removal CATARACT EXTRACTION CHOLECYSTECTOMY CLOSED REDUCTION PROXIMAL FIBULAR FRACTURE COLONOSCOPY dexa KNEE SURGERY TONSILLECTOMY MEDICATIONS Home Medications Outpatient Encounter Prescriptions as of 08/30/2018 Medication Sig Dispense Refill aspirin 325 MG tablet Take 325 mg by mouth daily with breakfast. Cholecalciferol 2000 units CAPS Take by mouth. cyanocobalamin (VITAMIN B-12) 100 MCG tablet Take 500 mg by mouth. DULoxetine (CYMBALTA) 30 MG capsule Take 30 mg by mouth daily. insulin glargine (LANTUS SOLOSTAR) 100 UNIT/ML injection Inject into the skin nightly. levothyroxine (SYNTHROID) 25 MCG tablet Take 25 mcg by mouth every morning before break fast. losartan-hydrochlorothiazide (HYZAAR) 50-12.5 MG per tablet Take 1 tablet by mouth rajni y. metFORMIN (GLUCOPHAGE) 850 MG tablet Take 850 mg by mouth 2 (two) times daily with meal s. metoprolol (TOPROL-XL) 50 MG 24 hr tablet Take 50 mg by mouth daily. Multiple Vitamins-Minerals (MULTIVITAMIN WITH MINERALS) tablet Take 1 tablet by mouth d aily. Psyllium 500 MG CAPS Take 1 packet by mouth 2 (two) times daily. [DISCONTINUED] insulin aspart (NOVOLOG) 100 UNIT/ML injection Inject into the skin 3 ( three) times daily before meals. No facility-administered encounter medications on file as of 08/30/2018. Allergies Allergies Allergen Reactions Morphine Other (See Comments) Becomes goofy, and reacts really strange FAMILY HISTORY Family History Problem Relation Age of Onset Heart Problems Father SOCIAL HISTORY Social History Social History Marital status: Spouse name: N/A Number of children: N/A Years of education: N/A Occupational History Not on file. Social History Main Topics Smoking status: Never Smoker Smokeless tobacco: Never Used Alcohol use No Drug use: No Sexual activity: Not on file Other Topics Concern Not on file Social History Narrative No narrative on file PHYSICAL EXAM Vital Signs: BP 108/58 (BP Location: Left upper arm, Patient Position: Sitting) | Pulse 72 | Ht 1.88 m (6' 2") | Wt 130 kg (286 lb 9.6 oz) | SpO2 96% | BMI 36.80 kg/m Physical Exam GENERAL: Obese male resting in wheelchair, in no distress. Appears approximately stated a ge. HEENT: Normocephalic, atraumatic. EYES: PERRL, sclerae anicteric, no xanthelsasmas NECK: No JVD, lymphadenopathy, thyromegaly, bruits. Carotid pulses are 2+ bilaterally LUNGS: Clear bilaterally, with no rales, rhonchi or wheezing noted, respirations unlabored HEART: Nondisplaced PMI, regular rate and rhythm, S1, S2 normal. No murmurs, rubs or gall ops noted. ABDOMEN: Soft, nontender, no organomegaly, masses or bruits. Bowel sounds are normal in a ll 4 quadrants. EXTREMITIES: No edema. Radial pulses 2+ bilaterally. DP and PT pulses are 2+ bilaterally. SKIN: Warm and dry, capillary refill is normal, no lesions. NEUROLOGIC: Awake, alert and oriented x 3. No focal motor deficits. PSYCHIATRIC: Appropriate, affect appears normal DATA Most recent blood work from 04/16/2018 reviewed including total cholesterol 138, triglyceri dwight 149, HDL 40, LDL 68, sodium 138, potassium 4.6, chloride 104, carbon dioxide 22, glucose 152, BUN 25, creatinine 1.36, GFR 49, AST 16, ALT 11, alkaline phosphatase 61, total biliru bin 0.5, hemoglobin A1c 7.5, TSH 4.72, white blood cell count 6.4, hemoglobin 11.6, hematocr it 35.5, platelets 208 EK08/30/2018 ordered and reviewed by myself normal sinus rhythm 60 bpm right bundle branch block, left anterior fascicular block, frequent PVCs Last Echo: 06/19/18 Impression 1. This was a technically difficult study with suboptimal views. 2. Grossly normal LV size and systolic function, with a visually estimed LVEF of 60%. Unabl e to comment on regional wall motion. 3. The RV was not well visualized. The right ventricle is mildly enlarged. On limited vie ws, the right ventricular systolic function appears to be normal. 4. The right atrium is mildly enlarged. 5. There is mild pulmonary hypertension. 6. The ascending aorta is dilated measuring up to 4.4cm. Last stress test: Last cath: Carotid US: AAA screening: Lower extremity US: OTHERS: ASSESSMENT & PLAN 1. Atypical Chest pain 2. RBBB/LAFB 3. PVCS 4. HTN 5. DM II 6. GERD 7. CKD 8. Obesity 9. Depression 10. Sleep apnea - The patient is an 88yo male with the above past medical histories who presents to the car diology office for initial consultation regarding an abnormal EKG which demonstrates RBBB, L AFB, and frequent PVCs. He reports some atypical chest pains that have occurred recently. He denies any episodes of syncope/presyncope. - obtain a nuclear pharmacologic stress test - obtain a 24 hour holter monitor to quantify PVCs - obtain a complete echocardiogram. - continue metoprolol succinate 50mg po daily - continue losartan/hctz 50/12.5mg po daily - continue ASA - Follow up in 3 months Thank you for allowing me to participate in the care of this patient. Primary Care Physician: CHRISTIANO Wahl DO 08/31/2018in this encounter Plan of Treatment +--------+---------+ + + + | Date | Type | Specialty | Care Team | Description | +--------+---------+ + + + | 12/13/ | Office | Cardiology | Pricilla Wahl DO | | | 2019 | Visit | | [address] | | | | | | [place] | | | | | | [address] | | | | | | | | +--------+---------+ + + + + +--------+ + + | Name | Priori | Associated Diagnoses | Order Schedule | | | ty | | | + +--------+ + + | [employer] (stress and | Routin | Abnormal EKG | Expected: | | rest) | e | Chest Pain, | 09/06/2018, Expires: | | | | Unspecified Type | 03/02/2019 | + +--------+ + + | Holter monitor - 24 hour | Routin | Abnormal EKG | Expected: | | | e | | 09/06/2018, Expires: | | | | | 08/31/2019 | + +--------+ + + as of this encounter Procedures + +--------+ + + + | Procedure Name | Priori | Date/Time | Associated Diagnosis | Comments | | | ty | | | | + +--------+ + + + | EKG STANDARD 12 LEAD | Routin | 08/30/2018 | Abnormal EKG | Results for this | | | e | 10:32 AM | | procedure are in the | | | | PDT | | results section. | + +--------+ + + + in this encounter Results ECHO outside interpretation standard (09/19/2018 12:40 PM) + + + | Impressions | Performed At | + + + | 1. This was a technically difficult study with suboptimal views. 2. | [facility] | | Overall left ventricular systolic function is normal with, an EF | RADIOLOGY | | about 60 %. 3. Pseudonormal LV diastolic filling pattern, consistent | | | with elevated LA pressure and moderate dysfunction (Grade II). 4. The | | | right ventricle is mildly enlarged. Normal RV systolic function. 5. | | | The right ventricular systolic pressure (pulmonary artery systolic | | | pressure), as measured by Doppler, is 39.44mmHg. 6. The ascending | | | aorta is dilated measuring up to 3.9cm. | | + + + + + + | Narrative | Performed At | + + + | Patient Name: Abisai Ontiveros Date of : 1930 | [facility] | | Performing Physician: Pricilla Wahl | RADIOLOGY | | | | | INDICATIONS Abnormal EKG CONCLUSIONS | | | 1. This was a technically difficult study with suboptimal views. 2. | | | Overall left ventricular systolic function is normal with, an EF about | | | 60 %. 3. Pseudonormal LV diastolic filling pattern, consistent with | | | elevated LA pressure and moderate dysfunction (Grade II). 4. The | | | right ventricle is mildly enlarged. Normal RV systolic function. 5. | | | The right ventricular systolic pressure (pulmonary artery systolic | | | pressure), as measured by Doppler, is 39.44mmHg. 6. The ascending | | | aorta is dilated measuring up to 3.9cm. FINDINGS -------- ECG | | | rhythm: Sinus rhythm with irregular beats. Study: A 2-dimensional | | | transthoracic echocardiogram with m-mode, spectral and color flow | | | Doppler was perfomed. Study: This was a technically difficult study | | | with suboptimal views. Left Ventricle: Overall left ventricular | | | systolic function is normal with, an EF about 60 %. Left Ventricle: | | | The left ventricle cavity size is normal. Left Ventricle: Left | | | ventricular wall thickness is normal. Left Ventricle: Pseudonormal | | | LV diastolic filling pattern, consistent with elevated LA pressure and | | | moderate dysfunction (Grade II). Right Ventricle: The right | | | ventricle is mildly enlarged. Right Ventricle: The right ventricular | | | systolic function is normal. Left Atrium: The left atrium is mildly | | | enlarged. Right Atrium: The right atrium is mildly enlarged. Aortic | | | Valve: The aortic valve appears to be trileaflet. Aortic Valve: | | | There is mild aortic valve sclerosis without stenosis. Aortic Valve: | | | Trace amount of aortic regurgitation. Mitral Valve: The mitral | | | valve is normal. Mitral Valve: There is trace mitral regurgitation. | | | Tricuspid Valve: The tricuspid valve appears structurally normal. | | | Tricuspid Valve: Trace tricuspid regurgitation present. Tricuspid | | | Valve: There is mild pulmonary hypertension. Tricuspid Valve: The | | | right ventricular systolic pressure (pulmonary artery systolic | | | pressure), as measured by Doppler, is 39.44mmHg. Pulmonic Valve: Mild | | | pulmonic regurgitation. Pericardium: There is no pericardial | | | effusion. IVC/Hepatic Veins: The IVC is normal size (1.5-2.5cm) and | | | collapses >50% with sniff, consistent with central venous pressures of | | | 5-10mmHg. Aorta: The ascending aorta is dilated measuring up to | | | 3.9cm. Mass: No mass visualized Thrombus: No clot visualized | | | Thrombus: No vegetation visualized. Septum: No ASD observed. | | | Septum: No VSD observed. MEASUREMENTS Ao asc: | | | 3.86 cm Ao Diam: 3.63 cm Ao sinus: 3.[address] junct: | | | 3.33 cm IVC: 2.19 cm LA Major: 5.95 cm EDV(Teich): | | | 143.40 ml IVSd: 0.93 cm LVIDd: 5.43 cm LVPWd: 1.06 cm | | | LVOT Diam: 2.20 cm %FS: 28.33 % EF(Teich): 54.19 % | | | ESV(Teich): 65.68 ml LVIDs: 3.89 cm SV(Teich): 77.71 ml | | | RV Major: 7.91 cm RV Minor: 3.59 cm RV Minor: 3.74 cm | | | LVEF MOD A2C: 59.63 % SV MOD A2C: 87.30 ml LVEF MOD A4C: | | | 62.40 % SV MOD A4C: 65.57 ml EF Biplane: 60.78 % LVEDV MOD | | | BP: 125.68 ml LVESV MOD BP: 49.28 ml LVEDV MOD A2C: | | | 146.41 ml LVLd A2C: 8.52 cm LVEDV MOD A4C: 105.09 ml LVLd | | | A4C: 8.25 cm LVESV MOD A2C: 59.10 ml LVLs A2C: 7.25 cm | | | LVESV MOD A4C: 39.51 ml LVLs A4C: 6.93 cm LAESV(A-L): | | | 99.55 ml LAESV Index (A-L): 39.34 ml/m2 LAAs A2C: 27.67 cm2 | | | LAESV A-L A2C: 99.44 ml LAESV MOD A2C: 98.07 ml LALs | | | A2C: 6.53 cm LAAs A4C: 27.70 cm2 LAESV A-L A4C: 98.88 ml | | | LAESV MOD A4C: 92.94 ml LALs A4C: 6.58 cm RAAs: 22.19 | | | cm2 RAESV A-L: 69.90 ml RAESV MOD: 65.88 ml RALs: 5.97 | | | cm TAPSE: 2.88 cm AR Dec Lasalle: 1.96 m/s2 AR Dec Time: | | | 1791.55 ms AR maxP.52 mmHg AR PHT: 519.55 ms AR | | | Vmax: 3.51 m/s AV Env.Ti: 316.55 ms AV maxP.02 mmHg | | | AV meanP.97 mmHg AV Vmax: 1.32 m/s AV Vmean: 0.93 | | | m/s AV VTI: 29.65 cm BRIAN Vmax: 2.93 cm2 BRIAN (VTI): 3.28 | | | cm2 AVAI Vmax: 0.00 cm2/m2 AVAI (VTI): 0.00 cm2/m2 LVOT | | | Env.Ti: 350.46 ms LVOT maxP.15 mmHg LVOT meanPG: | | | 2.48 mmHg LVSI Dopp: 38.44 ml/m2 LVSV Dopp: 97.25 ml LVOT | | | Vmax: 1.01 m/s LVOT Vmean: 0.72 m/s LVOT VTI: 25.49 cm | | | MV A Fabrice: 0.94 m/s MV Dec Lasalle: 5.00 m/s2 MV DecT: | | | 206.30 ms MV E Fabrice: 1.03 m/s MV E/A Ratio: 1.09 E/E' | | | Sept: 24.55 E' Lat: 0.08 m/s E' Sept: 0.04 m/s | | | RAP: 5 mmHg RV S': 0.11 m/s RVSP: 39.44 mmHg TR | | | maxP.44 mmHg TR Vmax: 2.93 m/s Contact Lens Manufacturer: | | | Authenticated by: Pricilla Wahl Report Date/Time: 09-20-2018 6:28:38 | | + + + + + | Procedure Note | + + | Syed, Rad Results In - 09/20/2018 6:30 AM PDT Patient Name: Eva Ontiveros of | | : 1930Accession: [id number] Physician: Pricilla | | Frye INDICATIONS | | -Abnormal EKGCONCLUSIONS 1. This was a technically difficult study with | | suboptimal views.2. Overall left ventricular systolic function is normal with, an EF | | about 60 %.3. Pseudonormal LV diastolic filling pattern, consistent with elevated LA | | pressure and moderate dysfunction (Grade II).4. The right ventricle is mildly enlarged. | | Normal RV systolic function. 5. The right ventricular systolic pressure (pulmonary | | artery systolic pressure), as measured by Doppler, is 39.44mmHg.6. The ascending aorta | | is dilated measuring up to 3.9cm.FINDINGS--------ECG rhythm: Sinus rhythm with irregular | | beats.Study: A 2-dimensional transthoracic echocardiogram with m-mode, spectral and | | color flow Doppler was perfomed. Study: This was a technically difficult study with | | suboptimal views.Left Ventricle: Overall left ventricular systolic function is normal | | with, an EF about 60 %. Left Ventricle: The left ventricle cavity size is normal. Left | | Ventricle: Left ventricular wall thickness is normal. Left Ventricle: Pseudonormal LV | | diastolic filling pattern, consistent with elevated LA pressure and moderate dysfunction | | (Grade II).Right Ventricle: The right ventricle is mildly enlarged. Right Ventricle: | | The right ventricular systolic function is normal.Left Atrium: The left atrium is mildly | | enlarged.Right Atrium: The right atrium is mildly enlarged.Aortic Valve: The aortic | | valve appears to be trileaflet. Aortic Valve: There is mild aortic valve sclerosis | | without stenosis. Aortic Valve: Trace amount of aortic regurgitation. Mitral Valve: The | | mitral valve is normal. Mitral Valve: There is trace mitral regurgitation.Tricuspid | | Valve: The tricuspid valve appears structurally normal. Tricuspid Valve: Trace tricuspid | | regurgitation present. Tricuspid Valve: There is mild pulmonary hypertension. Tricuspid | | Valve: The right ventricular systolic pressure (pulmonary artery systolic pressure), as | | measured by Doppler, is 39.44mmHg.Pulmonic Valve: Mild pulmonic | | regurgitation.Pericardium: There is no pericardial effusion.IVC/Hepatic Veins: The IVC | | is normal size (1.5-2.5cm) and collapses >50% with sniff, consistent with central venous | | pressures of 5-10mmHg.Aorta: The ascending aorta is dilated measuring up to 3.9cm.Mass: | | No mass visualizedThrombus: No clot visualized Thrombus: No vegetation | | visualized.Septum: No ASD observed. Septum: No VSD observed.MEASUREMENTS Ao | | asc: 3.86 cmAo Diam: 3.63 cmAo sinus: 3.[address] junct: 3.33 cmIVC: 2.19 | | cmLA Major: 5.95 cmEDV(Teich): 143.40 mlIVSd: 0.93 cmLVIDd: 5.43 cmLVPWd: 1.06 | | cmLVOT Diam: 2.20 cm%FS: 28.33 %EF(Teich): 54.19 %ESV(Teich): 65.68 mlLVIDs: | | 3.89 cmSV(Teich): 77.71 mlRV Major: 7.91 cmRV Minor: 3.59 cmRV Minor: 3.74 | | cmLVEF MOD A2C: 59.63 %SV MOD A2C: 87.30 mlLVEF MOD A4C: 62.40 %SV MOD A4C: | | 65.57 mlEF Biplane: 60.78 %LVEDV MOD BP: 125.68 mlLVESV MOD BP: 49.28 mlLVEDV MOD | | A2C: 146.41 mlLVLd A2C: 8.52 cmLVEDV MOD A4C: 105.09 mlLVLd A4C: 8.25 cmLVESV | | MOD A2C: 59.10 mlLVLs A2C: 7.25 cmLVESV MOD A4C: 39.51 mlLVLs A4C: 6.93 | | cmLAESV(A-L): 99.55 mlLAESV Index (A-L): 39.34 ml/m2LAAs A2C: 27.67 [id number] A-L | | A2C: 99.44 mlLAESV MOD A2C: 98.07 mlLALs A2C: 6.53 cmLAAs A4C: 27.70 [id number] | | A-L A4C: 98.88 mlLAESV MOD A4C: 92.94 mlLALs A4C: 6.58 cmRAAs: 22.19 [id number] | | A-L: 69.90 mlRAESV MOD: 65.88 mlRALs: 5.97 cmTAPSE: 2.88 cmAR Dec Lasalle: 1.96 | | m/s2AR Dec Time: 1791.55 msAR maxP.52 mmHgAR PHT: 519.55 msAR Vmax: 3.51 | | m/Emi Env.Ti: 316.55 msAV maxP.02 mmHgAV meanP.97 mmHgAV Vmax: 1.32 | | m/Emi Vmean: 0.93 m/Emi VTI: 29.65 cmAVA Vmax: 2.93 cm2AVA (VTI): 3.28 [id number] | | Vmax: 0.00 cm2/m2AVAI (VTI): 0.00 cm2/m2LVOT Env.Ti: 350.46 msLVOT maxP.15 | | mmHgLVOT meanP.48 mmHgLVSI Dopp: 38.44 ml/m2LVSV Dopp: 97.25 mlLVOT Vmax: | | 1.01 m/sLVOT Vmean: 0.72 m/sLVOT VTI: 25.49 cmMV A Fabrice: 0.94 m/sMV Dec Lasalle: | | 5.00 m/s2MV DecT: 206.30 msMV E Fabrice: 1.03 m/sMV E/A Ratio: 1.09 E/E' Sept: 24.55 | | E' Lat: 0.08 m/sE' Sept: 0.04 m/sRAP: 5 mmHgRV S': 0.11 m/sRVSP: 39.44 mmHgTR | | maxP.44 mmHgTR Vmax: 2.93 m/sSonographer: Authenticated by: Pricilla Finnegan | | Date/Time: 09-20-2018 6:28:38IMPRESSION:1. This was a technically difficult study with | | suboptimal views.2. Overall left ventricular systolic function is normal with, an EF | | about 60 %.3. Pseudonormal LV diastolic filling pattern, consistent with elevated LA | | pressure and moderate dysfunction (Grade II).4. The right ventricle is mildly enlarged. | | Normal RV systolic function. 5. The right ventricular systolic pressure (pulmonary | | artery systolic pressure), as measured by Doppler, is 39.44mmHg.6. The ascending aorta | | is dilated measuring up to 3.9cm. | |IVC: 2.19 cm | |LA Major: 5.95 cm | |EDV(Teich): 143.40 ml | |IVSd: 0.93 cm | |LVIDd: 5.43 cm | |LVPWd: 1.06 cm | |LVOT Diam: 2.20 cm | |%FS: 28.33 % | |EF(Teich): 54.19 % | |ESV(Teich): 65.68 ml | |LVIDs: 3.89 cm | |SV(Teich): 77.71 ml | |RV Major: 7.91 cm | |RV Minor: 3.59 cm | |RV Minor: 3.74 cm | |LVEF MOD A2C: 59.63 % | |SV MOD A2C: 87.30 ml | |LVEF MOD A4C: 62.40 % | |SV MOD A4C: 65.57 ml | |EF Biplane: 60.78 % | |LVEDV MOD BP: 125.68 ml | |LVESV MOD BP: 49.28 ml | |LVEDV MOD A2C: 146.41 ml | |LVLd A2C: 8.52 cm | |LVEDV MOD A4C: 105.09 ml | |LVLd A4C: 8.25 cm | |LVESV MOD A2C: 59.10 ml | |LVLs A2C: 7.25 cm | |LVESV MOD A4C: 39.51 ml | |LVLs A4C: 6.93 cm | |LAESV(A-L): 99.55 ml | |LAESV Index (A-L): 39.34 ml/m2 | |LAAs A2C: 27.67 cm2 | |LAESV A-L A2C: 99.44 ml | |LAESV MOD A2C: 98.07 ml | |LALs A2C: 6.53 cm | |LAAs A4C: 27.70 cm2 | |LAESV A-L A4C: 98.88 ml | |LAESV MOD A4C: 92.94 ml | |LALs A4C: 6.58 cm | |RAAs: 22.19 cm2 | |RAESV A-L: 69.90 ml | |RAESV MOD: 65.88 ml | |RALs: 5.97 cm | |TAPSE: 2.88 cm | |AR Dec Lasalle: 1.96 m/s2 | |AR Dec Time: 1791.55 ms | |AR maxP.52 mmHg | |AR PHT: 519.55 ms | |AR Vmax: 3.51 m/s | |AV Env.Ti: 316.55 ms | |AV maxP.02 mmHg | |AV meanP.97 mmHg | |AV Vmax: 1.32 m/s | |AV Vmean: 0.93 m/s | |AV VTI: 29.65 cm | |BRIAN Vmax: 2.93 cm2 | |BRIAN (VTI): 3.28 cm2 | |AVAI Vmax: 0.00 cm2/m2 | |AVAI (VTI): 0.00 cm2/m2 | |LVOT Env.Ti: 350.46 ms | |LVOT maxP.15 mmHg | |LVOT meanP.48 mmHg | |LVSI Dopp: 38.44 ml/m2 | |LVSV Dopp: 97.25 ml | |LVOT Vmax: 1.01 m/s | |LVOT Vmean: 0.72 m/s | |LVOT VTI: 25.49 cm | |MV A Fabrice: 0.94 m/s | |MV Dec Lasalle: 5.00 m/s2 | |MV DecT: 206.30 ms | |MV E Fabrice: 1.03 m/s | |MV E/A Ratio: 1.09 | |E/E' Sept: 24.55 | |E' Lat: 0.08 m/s | |E' Sept: 0.04 m/s | |RAP: 5 mmHg | |RV S': 0.11 m/s | |RVSP: 39.44 mmHg | |TR maxP.44 mmHg | |TR Vmax: 2.93 m/s | | | |Contact Lens Manufacturer: | |Authenticated by: Pricilla Wahl | |Report Date/Time: 09-20-2018 6:28:38 | | | |IMPRESSION: | |1. This was a technically difficult study with suboptimal views. | |2. Overall left ventricular systolic function is normal with, an EF about 60 %. | |3. Pseudonormal LV diastolic filling pattern, consistent with elevated LA pressure and mode rate dysfunction (Grade II). | |4. The right ventricle is mildly enlarged. Normal RV systolic function. | |5. The right ventricular systolic pressure (pulmonary artery systolic pressure), as measure d by Doppler, is 39.44mmHg. | |6. 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 | + + + + + + + | Performing | Address | City/State/Zipcode | Phone Number | | Organization | | | | + + + + + | [facility] | [address] | [place] [address] | | + + + + + EKG STANDARD 12 LEAD (08/30/2018 10:32 AM) + + + + + | Component | Value | Ref Range | Performed At | + + + + + | Ventricular Rate | 68 | BPM | [facility] | + + + + + | Atrial Rate | 68 | BPM | [facility] | + + + + + | P-R Interval | 180 | ms | [facility] | + + + + + | QRS Duration | 136 | ms | [facility] | + + + + + | Q-T Interval | 468 | ms | [facility] | + + + + + | QTC Calculation | 497 | ms | [facility] | | (Bezet) | | | | + + + + + | Calculated P [place] | 12 | degrees | [facility] | + + + + + | Calculated R [place] | -49 | degrees | [facility] | + + + + + | Calculated T [place] | -7 | degrees | [facility] | + + + + + | Diagnosis | Please refer to | | [facility] | | | Providers office visit | | | | | note for Providers | | | | | Interpretation.Confirmed | | | | | by [facility] [place] Read Only, | | | | | [facility] Brandie ([id number]), | | | | | newspaper photo editor Torsten Garcia | | | | | ([id number]) on 08/30/2018 | | | | | 10:52:25 AM | | | + + + + + + + + + + | Performing | Address | City/State/Zipcode | Phone Number | | Organization | | | | + + + + + | [facility] | [address] | [place] [address] | | + + + + + in this encounter Visit Diagnoses + + | Diagnosis | + + | Abnormal EKG - Primary | + + | Nonspecific abnormal electrocardiogram (ECG) (EKG) | + + | Chest pain, unspecified type | + + | RBBB (right bundle branch block with left anterior fascicular block) | + + | Right bundle branch block and left anterior fascicular block | + + | PVC's (premature ventricular contractions) | + + | Other premature beats | + + | Hypertension, unspecified type | + +
--- OUTSIDE RECORDS SUMMARY | ~2018-09-27 | XMS | Encounter Summary ---
Demographics + + + | Address | [address] | | | [place] [address] | + + + | Home Phone | | + + + | Preferred Language | Unknown | + + + | Marital Status | | + + + | Evangelical Affiliation | PRE | + + + | Race | White | + + + | Ethnic Group | Not or | + + + Author + + + | Organization | Unknown | + + + | Address | Unknown | + + + | Phone | Unavailable | + + + Support + + +---------+ + | Name | Relationship | Address | Phone | + + +---------+ + | Marnie Ontiveros | ECON | Unknown | | + + +---------+ + Care Team Providers + +------+ + | Care Tile Conduit Layer Name | Role | Phone | + +------+ + PCP | Unavailable | + +------+ + Encounter Details +--------+ + + + + | Date | Type | Department | Care Team | Description | +--------+ + + + + | 02/15/ | Office | | Report, Outpatient | Progress Note | | 2005 | Visit-Trans | | Consultation | | | | cribed | | [...] as of this encounter Progress Notes 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 Consultation Date: 2005 Referring Physician: Rod Alvarado M.D. Attending Physician: Sheldon Hawkins M.D. Chief Complaint: Neck, shoulder, and chest pain. Reason For Requested Consultation: Evaluation and recommendation for postherpetic neuralgia. History of Present Illness: Ms. Ontiveros is a very pleasant 75-year-old gentleman who suffers from postherpetic neuralgia and is referred to us today for evaluation and recommendations. His clinical course was summarized in an excellent letter by Dr. Rod Alvarado dated January 17, 2005. In summary, Mr. Ontiveros suffered an outbreak of shingles in September 2004. He actually had a prodrome of headache and right-sided chest pain several days before this. On October 25, 2004, he is evaluated in the clinic by Dr. Alvarado and found to have herpes zoster in the right C2 and C3 distribution. He was treated with antivirals and symptomatically for pain. He reports having vesicular lesions in the posterior neck and into the hairline. His pain extended anteriorly to the lateral face as well as the right ear. Following his lesions, he continued to have pain symptoms as well as allodynia especially in the posterior cervical area. He also reported shooting pains in the right cheek which were a 10/10 in intensity. Presently, he reports that his pain is fairly constant but ranges from 5 to 8 out of 10. He has about 40% relief from his pain medications. 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 He has been fairly homebound as a result of this. He indicates that this has severely affected his mood. In a brief depression screen in our office today, he indicates poor sleep, decreased interest, increased guilt, markedly decreased energy, decreased concentration, and activity. He does not demonstrate any psychomotor retardation or suicidal thoughts presently. Treatments to date include medications and exercise. He is currently managed on Vicodin, naproxen, and Neurontin (see below). Previously, he tried Tylenol #3, hydrocodone, and oxycodone (dose unknown). He is not sure whether the oxycodone and hydrocodone helped but the Tylenol #2 was not effective. Current Medications: 1. Vicodin 2 tablets 4 times daily. 2. Naproxen 1 tablet twice daily. 3. Paroxetine 1 tablet once daily. 4. Neurontin 600 mg 2 tablets 3 times daily. 5. Metformin 1000 mg 3 times daily. 6. Multivitamin 1 tablet daily. Past Medical History: 1. Type 2 diabetes. 2. Coronary artery disease status post myocardial infarction by report. 3. Respiratory difficulties. 4. Previous alcohol abuse and psoriatic liver. 5. Anxiety. 6. Depression. 7. Obesity. Allergies: No known drug allergies. HE HAS HAD ADVERSE EFFECTS TO MORPHINE (CAUSE ITCHING ALL OVER) AND ALCOHOL "CAUSES HIM TO DO CRAZY THINGS." Review of Systems: New patient questionnaire was reviewed. Negative for genitourinary, musculoskeletal, integumentary (with the exception of herpes zoster), hematologic, allergic, cancer, or constitutional systems. Cardiovascular: Positive for previous heart attack, negative for current chest pain or shortness of breath. Neurological: Positive for poor balance and some near falls. Family History: Positive for diabetes, heart disease, and substance abuse. Negative for chronic pain issues. 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 He is unable to fully do his duties secondary to the postherpetic neuralgia. He is a past heavy user of alcohol but quit 24 years ago. It is his understanding that he has liver disease from this. 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 Physical Examination: Vital Signs: Weight 141.2 kg, height 6 feet 3 inches, blood pressure 116/52, pulse 66, respirations 20, temperature 37, pain score 6/10, and BMI 38.9. General: He is a very pleasant obese gentleman who is currently wearing a shirt with the neck cut away for comfort. HEENT: Normocephalic and atraumatic. There are no active lesions in the C2 or C3 distribution but we can evidence of some past healed lesions. Otoscopic examination was remarkable for cerumen bilaterally but there is no lesions or problems noted in the external auditory canals. Heart: Regular rate and rhythm without murmurs, rubs, or gallops. Lungs: Clear to auscultation bilaterally. Abdomen: Obese, nontender, and nondistended. Normal bowel sounds. Musculoskeletal: Decreased lumbar lordosis. Cervical range of motion was within normal limits with the exception of side bending. This does not produce any radicular pain. He has minimal myofascial pain in the cervical muscles and upper trapezius bilaterally. Neurological: In general gait, he has a markedly wide based and unsteady gait. He particularly has difficulty when challenged with heel walking, toe walking, or tandem (could not do). He had loss of balance and have to catch himself in our office. Sensory examination: Notable allodynia in the C3 distribution posteriorly. This included the hairline and scalp posterior to the ear on the right as well as the external ear and lateral cheek. Motor examination was normal in the C5 through T1 dermatomes bilaterally. Deep tendon reflexes were normal and symmetric for biceps, triceps, and brachioradialis. Patellar responses were absent (status post bilateral knee replacement), Achilles responses were diminished but present. Joint position since was variable but did appear to be largely intact at the great toes. He denied any decreased light touch or sensation to pinprick in the feet. There were atrophic skin changes. Impressions: 1. Postherpetic neuralgia, predominantly in right C3 distribution. 2. Diabetes mellitus type 2. 3. Unsteady gait. 4. Depression. 5. History of alcohol abuse with psoriatic liver. Recommendations: 1. Trial of pregabalin 150 mg q.12 h. This would be in place of gabapentin. Pregabalin has 2 clinical trials showing efficacy for postherpetic neuralgia. The side effects to this reported are similar to gabapentin. Presently, Mr. Ontiveros has not had any problems with gabapentin and hopefully tolerate pregabalin. If this is helpful and there are no side effects, the dose can be increased to as high as 300 mg twice daily. 2. Recommend long-acting opioids instead of Vicodin for pain control. We would recommend one of the following 2.1. Tramadol 50 mg 1 to 2 tablets p.o. q.6 h. as needed. 2.2. Methadone 5 mg p.o. q.8 h. 2.3. Morphine sulfate extended release 15 mg p.o. q.8 h. 2.4. OxyContin 10 mg p.o. q.12 h. 2.5. Duragesic patch 25 mg per hour q.72 h. Additionally, we are concerned about the Tylenol that is contained in the Vicodin. By his report, Mr. Ontiveros is taking 8 to 9 tablets which would be 4000 to 4500 mg daily. We do not know his current liver function, but by report, he has cirrhosis. 3. Consider trial of duloxetine 30 mg daily, increasing to 60 mg daily for depression (instead of paroxetine). Duloxetine has a benefit of treating depression and pain. 4. Consider trial of Lidoderm patches if not used already. 5. Physical Therapy evaluation for gait instability. This may be caused by some mild diabetic peripheral neuropathy with superimposed inner ear dysfunction secondary to postherpetic neuralgia. Regardless of the cause, Mr. Ontiveros is certainly at risk for falling at the present time. We have encouraged him to use a walking stick or cane immediately and see a therapist for evaluation. Discussion: We discussed our impressions and recommendations with Ms. Ontiveros including the various medical options we have described above and our concerns and recommendations regarding his unsteady gait. He has had excellent treatment thus far with Dr. Alvarado and we would be happy to work with him in the future consulting role or a more involved role with his pain medications as outlined in Dr. Hawkins's letter to Dr. Alvarado. We will follow up with Mr. Ontiveros on an as needed basis. He has our clinic contact information and may certainly contact us in the future for questions or concerns, or if he would like to get a followup appointment. We answered all questions to and Mrs. Ontiveros's satisfaction. Dr. Hawkins was present for the entire physical examination, formulation of the plan, and discussion with the patient. Hussain Deleon D.O. Sheldon Hawkins M.D. / JOHNNA [id number] / [id number] / [id number] / E: 03/04/2005 apryl cc: [place] [phone] Rod Alvarado M.D. [facility] [address] [place] [address] Electronically signed by Hussain Deleon 02-24-2005 08:06:06 AM documented i n this encounter Plan of Treatment Not on filedocumented as of this encounter Visit Diagnoses Not on filedocumented in this encounter
--- OUTSIDE RECORDS SUMMARY | ~2018-09-27 | XMS | Encounter Summary ---
Demographics + + + | Address | [address] | | | [place] [address] | + + + | Home Phone | | + + + | Preferred Language | Unknown | + + + | Marital Status | | + + + | Judaism Affiliation | PRE | + + + | Race | White | + + + | Ethnic Group | Not or | + + + Author + + + | Author | [facility] | + + + | Organization | [facility] | + + + | Address | Unknown | + + + | Phone | Unavailable | + + + Support + + +---------+ + | Name | Relationship | Address | Phone | + + +---------+ + | Marnie Ontiveros | ECON | Unknown | | + + +---------+ + Care Team Providers + +------+ + | Care Front Desk Team Member Name | Role | Phone | + [...] [place] | | | | | | [place], [place] | | | | | | [address] | | | | | | [phone] | | | +--------+ + + + [...]
--- OUTSIDE RECORDS SUMMARY | ~2018-09-27 | XMS | Encounter Summary ---
Demographics + + + | Address | [address] | | | [place] [address] | + + + | Home Phone [...] Team Providers + +------+ + | Care Maintenance Technician Name | Role | Phone | + +------+ + PCP | Unavailable | + +------+ + Encounter Details +--------+ + + + + | Date | Type | Department | Care Team | Description | +--------+ + + + + | 02/15/ | Abstract | [facility] | Sheldon Hawkins MD | | | 2004 | | Center Outpatient | [address] | | | | | Therapy Center [address] | [place], [place] | | | | | [address] | [address] | | | | | Outpatient Therapy | [phone] | | | | | Center 2nd floor | | | | | | Mailcode: OP26 | | | | | | [place], [place] | | | | | | [address] | | | | | | [phone] | | | +--------+ + + + [...]
--- OUTSIDE RECORDS SUMMARY | ~2018-09-27 | XMS | Encounter Summary ---
Demographics + + + | Address | [address] | | | [place] [address] | + + + | Home Phone | | + + + | Preferred Language | Unknown | + + + | Marital Status | | + + + | Anglican Affiliation | PRE | + + + | Race | White | + + + | Ethnic Group | Not or | + + + Author + + + | Author | [facility] | + + + | Organization | [facility] | + + + | Address | Unknown | + + + | Phone | Unavailable | + + + Support + + +---------+ + | Name | Relationship | Address | Phone | + + +---------+ + | Marnie Ontiveros | ECON | Unknown | | + + +---------+ + Care Team Providers + +------+ + | Care Bottom Steep Tender Name | Role | Phone | + [...] [facility] | | | | | | ([facility]) | PHYSICIAN | | | | | | Procedures | MED GROUP | | | | | | MRI BRAIN | [address] | | | | | | WWO CONTRAST | [address] | | | | | | | [place] | | | | | | | [place] | | | | | | | [address] | | | | | | | Phone: | | | | | | | [phone] | | | | | | | Fax: | | | | | | | [phone] | | + +--------+ + + + + Encounter Details +--------+ + + + + | Date | Type | Department | Care Team | Description | +--------+ + + + + | 04/02/ | Hospital | Radiology/Imaging | | Canceled (Scheduling | | 2014 | Encounter | Lab at [facility] [address] | | error) | | | | [address] | | | | | | Mailcode: CH3G | | | | | | [facility] | | | | | | and Healing, 3rd | | | | | | Floor [place], [place] | | | | | | [address] | | | | | | [phone] | | | +--------+ + + + [...] + + | [facility] | [address] | [place] [address] | | | OF CARE TESTS | | | | + + + + + documented in this encounter Visit Diagnoses + + | Diagnosis | + + | 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
--- OUTSIDE RECORDS SUMMARY | ~2018-09-27 | XMS | Encounter Summary ---
Demographics + + + | Address | [address] | | | [place] [address] | + + + | Home Phone | | + + + | Preferred Language | Unknown | + + + | Marital Status | | + + + | Islam Affiliation | PRE | + + + [...] Team Providers + +------+ + | Care Traffic Survey Technician Name | Role | Phone | [...] as of this encounter Progress Notes Interface, Yard Conductor In - 03/05/2005 5:04 AM PST [id number]/ [id number] PENNY Farr Consulting Physician: Hussain Deleon D.O. 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 He is unable to fully do his [...] Deleon D.O. Sheldon Hawkins M.D. / JOHNNA [id number] / [id number] / [id number] / E: 03/04/2005 apryl cc: [place] [id number] Rod Alvarado M.D. [facility] [address] [place] [address] Electronically signed by Hussain Deleon 02-24-2005 08:06:06 AM documented i n this encounter Plan of Treatment Not on filedocumented as of this encounter Visit Diagnoses Not on filedocumented in this encounter
--- OUTSIDE RECORDS SUMMARY | ~2018-09-27 | XMS | Encounter Summary ---
Demographics + + + | Address | [address] | | | [place] [address] | + + + | Home Phone | | + + + | Preferred Language | Unknown | + + + | Marital Status | | + + + | Holiness Affiliation | PRE | + + + | Race | White | + + + | Ethnic Group | Not or | + + + Author + + + | Author | [facility] | + + + | Organization | [facility] | + + + | Address | Unknown | + + + | Phone | Unavailable | + + + Support + + +---------+ + | Name | Relationship | Address | Phone | + + +---------+ + | Marnie Ontiveros | ECON | Unknown | | + + +---------+ + Care Team Providers + +------+ + | Care Sales Agent Business Services Name | Role | Phone | + +------+ + | No Pcp Per Patient | PCP | Unavailable | + +------+ + Reason for Referral Diagnostic Testing (Routine) +--------+--------+ + + + + | Status | Reason | Specialty | Diagnoses / | Referred By | Referred To | | | | | Procedures | Contact | Contact | +--------+--------+ + + + + | Closed | | Radiology | Diagnoses | Tung, | | | | | | Acoustic | Ez Ceja MD | | | | | | neuroma | [facility] | | | | | | ([facility]) | PHYSICIAN | | | | | | Procedures | MED GROUP | | | | | | MRI BRAIN | [address] | | | | | | WWO CONTRAST | [address] | | | | | | | [place] | | | | | | | [place] | | | | | | | [address] | | | | | | | Phone: | | | | | | | [phone] | | | | | | | Fax: | | | | | | | [phone] | | +--------+--------+ + + + + Diagnostic Testing (Routine) +--------+--------+ + + + + | Status | Reason | Specialty | Diagnoses / | Referred By | Referred To | | | | | Procedures | Contact | Contact | +--------+--------+ + + + + | Closed | | Radiology | Diagnoses | Ruby, | | | | | | Acoustic | Ez Ceja MD | | | | | | neuroma | [facility] | | | | | | ([facility]) | PHYSICIAN | | | | | | Procedures | MED GROUP | | | | | | MRI BRAIN | [address] | | | | | | WWO CONTRAST | [address] | | | | | | | [place] | | | | | | | [place] | | | | | | | [address] | | | | | | | Phone: | | | | | | | [phone] | | | | | | | Fax: | | | | | | | [phone] | | +--------+--------+ + + + + Reason for Visit Diagnostic Testing (Routine) +--------+--------+ + + + + | Status | Reason | Specialty | Diagnoses / | Referred By | Referred To | | | | | Procedures | Contact | Contact | +--------+--------+ + + + + | Closed | | Radiology | Diagnoses | Ruby, | | | | | | Acoustic | Ez Ceja MD | | | | | | neuroma | [facility] | | | | | | (HCC) | PHYSICIAN | | | | | | Procedures | MED [facility] | | | | | | MRI BRAIN | [address] | | | | | | W[address] CONTRAST | [address] | | | | | | | [place] | | | | | | | [place] | | | | | | | [address] | | | | | | | Phone: | | | | | | | [phone] | | | | | | | Fax: | | | | | | | [phone] | | +--------+--------+ + + + + Encounter Details +--------+ + + + + | Date | Type | Department | Care Team | Description | +--------+ + + + + | 04/02/ | Hospital | Diagnostic Imaging | | | | 2014 | Encounter | Services at [facility] | | | | | | [address] | | | | | | [facility] | | | | | | Mailcode: [id number] | | | | | | [facility] | | | | | | [place], [place] | | | | | | [address] | | | | | | [phone] | | | +--------+ + + + [...] | + +--------+ + + + | MRI BRAIN WWO | Routin | 04/02/2015 | Acoustic neuroma | Results for this | | CONTRAST | e | 3:16 PM | (HCC) | procedure are in the | | | | PST | | results section. | + +--------+ + + + documented in this encounter Results MRI BRAIN WWO CONTRAST [...] subcortical | | | | | | [id number] foci are | | | | | [...] | | | | | | RAPHAEL FOX | | | | | | MDAuthor: STEPHIE | | | | | | MD Rubén SANDERS | | | | | | personally [...] | | | | | signed / RAPHAEL | | | | | | DOMINIQUE 04/02/2015 17:19 | | | | | | PM Pending final | | | | | | approval / STEPHIE | | | | | | MARILYN 04/02/2015 | | | | | | 16:38 PM Preliminary | | | | | | / STEPHIE SANDERS | | | | | | 04/02/2015 16:17 PM | | | | + + + + + + + + | Specimen | + + | | + + + +---------+ + + | Performing | Address | City/State/Zipcode | Phone Number | | Organization | | | | + +---------+ + + | [facility] DEPARTMENT OF | | | | | RADIOLOGY | | | | + +---------+ + + documented in this encounter Visit Diagnoses + + | Diagnosis | + + | 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
--- OUTSIDE RECORDS SUMMARY | ~2018-09-27 | XMS | Encounter Summary ---
Demographics + + + | Address | [address] | | | [place] [address] | + + + | Home Phone | | + + + | Preferred Language | Unknown | + + + | Marital Status | | + + + | Scientologist Affiliation | PRE | + + + [...] Team Providers + +------+ + | Care Oil Drilling Engineer Name | Role | Phone | + +------+ + | Christiano Wood DO | PCP | | + +------+ + Encounter Details +--------+---------+ + + + | Date | Type | Department | Care Team | Description | +--------+---------+ + + + | 03/20/ | Office | [facility] | Emil Parsons MD | Dermatochalasis of | | 2018 | Visit | [facility] | [address] | both upper eyelids | | | | [place] [address] | (Primary Dx) | | | | [facility] | [address] | | | | | [facility] | [phone] | | | | | [place] | | | | | | [address] | | | | | | [phone] | | | +--------+---------+ + + + [...] Dr. Parker for eye care RTC with or prn Physician attestation: I have reviewed and edited history and library information technician documentation, and performed all elements to above examination documentation. Emil Parsons M.D. 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
--- OUTSIDE RECORDS SUMMARY | ~2018-09-27 | XMS | Encounter Summary ---
Demographics + + + | Address | [address] | | | [place] [address] | + + + | Home Phone | | + + + | Preferred Language | Unknown | + + + | Marital Status | | + + + | Sabianism Affiliation | PRE | + + + | Race | White | + + + | Ethnic Group | Not or | + + + Author + + + | Author | [facility] | + + + | Organization | [facility] | + + + | Address | Unknown | + + + | Phone | Unavailable | + + + Support + + +---------+ + | Name | Relationship | Address | Phone | + + +---------+ + | Marnie Ontiveros | ECON | Unknown | | + + +---------+ + Care Team Providers + +------+ + | Care Latex Spooler Name | Role | Phone | + +------+ + | Christiano Wood DO | PCP | | + +------+ + Encounter Details +--------+ + + + + | Date | Type | Department | Care Team | Description | +--------+ + + + + | 03/10/ | Telephone | [facility] | Emil Parsons MD | | | 2018 | | [place] | [address] | | | | | Oculoplastics at | Blvd [place], [place] | | | | | [address] [facility] | [address] | | | | | [address] [facility] | [phone] | | | | | Mailcode: [address] | | | | | | [place], [place] | | | | | | [address] | | | | | | [phone] | | | +--------+ + + + [...]
--- OUTSIDE RECORDS SUMMARY | ~2018-09-27 | XMS | Encounter Summary ---
Demographics + + + | Address | [address] | | | [place] [address] | + + + | Home Phone | | + + + | Preferred Language | Unknown | + + + | Marital Status | | + + + | Mormon Affiliation | PRE | + + + | Race | White | + + + | Ethnic Group | Not or | + + + Author + + + | Author | [facility] | + + + | Organization | [facility] | + + + | Address | Unknown | + + + | Phone | Unavailable | + + + Support + + +---------+ + | Name | Relationship | Address | Phone | + + +---------+ + | Marnie Ontiveros | ECON | Unknown | | + + +---------+ + Care Team Providers + +------+ + | Care Saw Cleaner Name | Role | Phone | + [...] LARA | | | | | | ([facility]) | PHYSICIAN | | | | | | Procedures | MED GROUP | | | | | | MRI BRAIN | [address] | | | | | | [address] | [address] | | | | | | | [place] | | | | | | | [place] | | | | | | | [address] | | | | | | | Phone: | | | | | | | [phone] | | | | | | | Fax: | | | | | | | [phone] | | +--------+--------+ + + + + [...] BERMUDEZ | | | | | | ([facility]) | PHYSICIAN | | | | | | Procedures | MED GROUP | | | | | | MRI BRAIN | [address] | | | | | | [address] CONTRAST | [address] | | | | | | | [place] | | | | | | | [place] | | | | | | | [address] | | | | | | | Phone: | | | | | | | [phone] | | | | | | | Fax: | | | | | | | [phone] | | +--------+--------+ + + + + [...] | | | | | Acoustic | zE Ceja MD | | | | | | neuroma | [facility] | | | | | | (HCC) [...] | | | | | | | [address] | | | | | | | Phone: | | | | | | | [phone] | | | | | | | Fax: | | | | | | | [phone] | | +--------+--------+ + + + + Encounter Details +--------+ + + + + | Date | Type | Department | Care Team | Description | +--------+ + + + + | 04/02/ | Hospital | Diagnostic Imaging | | | | 2014 | Encounter | Services at [facility] | | | | | | 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
--- OUTSIDE RECORDS SUMMARY | ~2018-09-27 | XMS | Encounter Summary ---
Demographics + + + | Address | [address] | | | [place] [address] | + + + | Home Phone | | + + + | Preferred Language | Unknown | + + + | Marital Status | | + + + | Pentecostalism Affiliation | PRE | + + + | Race | White | + + + | Ethnic Group | Not or | + + + Author + + + | Author | [facility] | + + + | Organization | [facility] | + + + | Address | Unknown | + + + | Phone | Unavailable | + + + Support + + +---------+ + | Name | Relationship | Address | Phone | + + +---------+ + | Marnie Ontiveros | ECON | Unknown | | + + +---------+ + Care Team Providers + +------+ + | Care Pipe Organ Technician Name | Role | Phone | [...] +--------+--------+ + + + + Encounter Details +--------+---------+ + + + | Date | Type | Department | Care Team | Description | +--------+---------+ + + + | 03/09/ | Surgery | [facility] | Emil Parsons MD | BILATERAL DIRECT | | 2018 | | [address] | [address] | BROW LIFT (TEMPORAL; | | | | [address] [place] [facility] | [address]vd [facility] [place] | BILATERAL UPPER LID | | | | [facility], | [address] | BLEPHAROPLASTY (CO2 | | | | [place] [address] | [phone] | LASER) | | | | | | | [...] and holidays, call and ask t he floating derrick operator to page the Eye Doctor certified low vision therapist. documented in this encounter Medications at Time [...] daily. | | | | | | release(/EC) | | | | | | + [...] | 1 | 03/09/20 | | | jafsigkj-kdoqwlzpq-e | eyelid incisions | | | 18 [...] the procedure | | | well. Emil Parsons M.D. Core Analysis Operator Ophthalmic | | | Facial Plastic and [...] + + + + | [facility] | [address] | [place], [place] | | | [address] | [address] | [address] | | | TESTS | | | [...] [place] | [address] | [place], [place] | | | [address] | [facility] | [address] | | | TESTS | | | | + + + + + documented in this encounter Visit Diagnoses + + | Diagnosis | + + | Dermatochalasis of both upper eyelids | + + | Brow ptosis Unspecified ptosis of eyelid | + + documented in [...] | | | 03/09/18 at 1200, Until Mon | | | 03/09/18 at 1859, post-op moderate | | | pain | | + +---+ | | | + +---+ + +-------+ +--------+---+ + | lactated Ringers irrigation | Given | 03/09/20 | 200 mL | | Surgical | | INTRAPROCEDURE PRN, Starting Fri | | 18 11:26 | | | Site | | 18 at 1126, Until Fri | | AM PST | | | | | 18 at 1157 | | | | | | + +-------+ +--------+---+ + +---+---+ | | | +---+---+ + +-------+ +---------+---+ + | | Given | 03/09/20 | 1 strip | | Surgical | | bcfqfiqt-ifpncoztz-sydetspxjiapu | | 18 11:26 | | | Site | | (MAXITROL) 3.5 mg/g-10,000 | | AM PST | | | | | unit/g-0.1 % ophthalmic ointment | | | | | | | INTRAPROCEDURE PRN, Starting Fri | | | | | | | 18 at 1126, Until Fri | | | | | | | 18 at 1157 | | | | | | + +-------+ +---------+---+ + +---+---+ | | | +---+---+ + +-------+ +------+---+-------+ | Oculoplastics Local with | Given | 03/09/20 | 3 mL | | Both | | hyaluronidase: lidocaine w/ EPI | | 18 11:27 | | | Eyes | | 1%-1:726818 - bupivacaine 0.5% | | AM PST | | | | | (1:1) - hyaluronidase 150 | | | | | | | units/mL 1 mL INTRAPROCEDURE | | | | | | | PRN, Starting Mon03/09/18 at | | | | | | | 1126, Until Mon03/09/18 at 1157 | | | | | | + +-------+ +------+---+-------+ +-------+ +------+---+-------+ | Given | 03/09/20 | 4 mL | | Both | | | 18 11:26 | | | Eyes | | | AM PST | | | | +-------+ +------+---+-------+ + +---+ | | | + +---+ | oxyCODONE (immediate release) | | | (ROXICODONE) tablet 5-10 mg 5-10 | | | mg, oral, NEEDED, 1 dose, | | | Starting Mon03/09/18 at 1200, | | | Until Mon03/09/18 at 1859, | | | post-op severe pain | | + +---+ | | | + +---+ + +-------+ +---------+---+-------+ | proparacaine (OPHTHAINE) 0.5 % | Given | 03/09/20 | 2 drops | | Both | | ophthalmic drops INTRAPROCEDURE | | 18 11:27 | | | Eyes | | PRN, Starting Mon03/09/18 at | | AM PST | | | | | 1127, Until Mon03/09/18 at 1157 | | | | | | + +-------+ +---------+---+-------+ +-------+ +---------+---+-------+ | Given | 03/09/20 | 2 drops | | Both | | | 18 11:26 | | | Eyes | | | AM PST | | | | +-------+ +---------+---+-------+ +---+---+ | | | +---+---+ + +---------+ + + +---+ | sodium [...]
--- OUTSIDE RECORDS SUMMARY | ~2018-09-27 | XMS | Encounter Summary ---
Demographics + + + | Address | [address] | | | [place] [address] | + + + | Home Phone | | + + + | Preferred Language | Unknown | + + + | Marital Status | | + + + | Latter Day Affiliation | PRE | + + + [...] Team Providers + +------+ + | Care Assemblies And Installations Inspector Name | Role | Phone | + +------+ + | Christiano Wood DO | PCP | | + +------+ + Reason for Visit + + + | Reason | Comments | + + + | Visual field testing | | + + + Encounter Details +--------+ + + + + | Date | Type | Department | Care Team | Description | +--------+ + + + + | 01/16/ | Documentati | [facility] | Emil Parsons MD | Visual field testing | | 2018 | on | [place] | [address] | | | | | Oculoplastics at | Blvd [place], [place] | | | | | [address] | [address] | | | | | [address] | [phone] | | | | | Mailcode: [facility] | | | | | | [place], [place] | | | | | | [address] | | | | | | [phone] | | | +--------+ + + + [...]
--- OUTSIDE RECORDS SUMMARY | ~2018-09-27 | XMS | Encounter Summary ---
Demographics + + + | Address | [address] | | | [place] [address] | + + + | Home Phone [...] Team Providers + +------+ + | Care Chrome Plater Helper Name | Role | Phone | + [...] as of this encounter Progress Notes Interface, Senior Telecommunications Technician In - 03/05/2005 5:04 AM PST [id number] PENNY Farr Consulting Physician: Hussain Deleon D.O. 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 He is unable to fully [...] Deleon D.O. Sheldon Hawkins M.D. / JOHNNA [id number] / [id number] / [id number] / E: 03/04/2005 apryl cc: [place] [id number] Rod Alvarado M.D. [facility] [address] [place] [address] Electronically signed by Hussain Deleon 02-24-2005 08:06:06 AM documented i n this encounter Plan of Treatment Not on filedocumented as of this encounter Visit Diagnoses Not on filedocumented in this encounter
--- OUTSIDE RECORDS SUMMARY | ~2018-09-27 | XMS | Encounter Summary ---
Demographics + + + | Address | [address] | | | [place] [address] | + + + | Home Phone | | + + + | Preferred Language | Unknown | + + + | Marital Status | | + + + | Church Affiliation | PRE | + + + | Race | White | + + + | Ethnic Group | Not or | + + + Author + + + | Author | [facility] | + + + | Organization | [facility] | + + + | Address | Unknown | + + + | Phone | Unavailable | + + + Support + + +---------+ + | Name | Relationship | Address | Phone | + + +---------+ + | Marnie Ontiveros | ECON | Unknown | | + + +---------+ + Care Team Providers + +------+ + | Care Planning Supervisor Name | Role | Phone | + +------+ + | Christiano Wood DO | PCP | | + +------+ + Reason for Visit +---------+ + | Reason | Comments | +---------+ + | Post Op | | +---------+ + Encounter Details +--------+ + + + + | Date | Type | Department | Care Team | Description | +--------+ + + + + | 03/10/ | Telephone | [facility] | Suha Maher, | Post Op | | 2017 | | [place] | [address] | | | | | Oculoplastics at | [address] | | | | | [address] | [place], [place] | | | | | [address] | [address] | | | | | Mailcode: [address] | [phone] | | | | | [place], [place] | | | | | | [address] | | | | | | [phone] | | | +--------+ + + + [...]
--- OUTSIDE RECORDS SUMMARY | ~2018-09-27 | XMS | Encounter Summary ---
Demographics + + + | Address | [address] | | | [place] [address] | + + + | Home Phone | | + + + | Preferred Language | Unknown | + + + | Marital Status | | + + + | Confucianism Affiliation | Unknown | + + + | Race | Unknown | + + + | Ethnic Group | Unknown | + + + Author + + + | Author | [facility] | + + + | Organization | [facility] | + + + | Address | Unknown | + + + | Phone | Unavailable | + + + Support + + + + + | Name | Relationship | Address | Phone | + + + + + | Marcial Ontiveros | ECON | [address] | | | | | [place], | | | | | [place] [address] | | + + + + + Care Team Providers + +------+ + | Care Psychotherapist Counselor Name | Role | Phone | + +------+ + | Nina Christiano DO | PCP | | + +------+ + Reason for Visit + + + | Reason | Comments | + + + | Cardiac Event | end of study | | Monitor | | + + + Encounter Details +--------+ + + + + | Date | Type | Department | Care Team | Description | +--------+ + + + + | 09/10/ | Documentati | [facility] | Karen Gamboa, | Cardiac Event | | 2019 | on Only | Cardiology [place] | RT | Monitor (end of | | | | [address] | | study) | | | | [place], [place] | | | | | | [address] | | | | | | [phone] | | | +--------+ + + + [...] + + + as of this encounter Progress Notes Pricilla Wahl DO - 09/10/2018 11:59 PM PDT Holter Monitor Date of Holter Monitor: 09/10/18 Referring Physician: No Patient:Abisai Ontiveros : 1930 Age: 88 y.o. male INDICATIONS: Other specified heart block Procedure: Continuous ambulatory ECG for the duration of 24 hours. During this recording, the underlying rhythm is Sinus, the lowest heart rate was 60 BPM, the highest heart rate 101 BPM, averaging 74 BPM. During this recording interval, 101 PACs were recorded; this repres ents a 0.09% burden. Also, 57779 PVCs were recorded; this represents a 21% burden. No AV c onduction abnormalities observed. No ischemia detected. The heart rate trends did demonstr ate a normal circadian pattern. In the patient's diary, no symptoms were reported. Impressions: 1: Sinus, as described above. 2: 21% burden of PVCs 3: No AV conduction abnormalities detected. 4: No ischemia detected. 5: No entries in Patient Diary. Recomendations: Clinical correlation suggested. Pricilla Wahl DO in this encounter Plan of Treatment +--------+---------+ + + + | Date | Type | Specialty | Care Team | Description | +--------+---------+ + + + | 12/13/ | Office | Cardiology | Pricilla Wahl DO | | | 2019 | Visit | | [address] | | | | | | [place] | | | | | | [address] | | | | | | | | +--------+---------+ + + + as of this encounter Visit Diagnoses + + | Diagnosis | + + | Other specified heart block - Primary | + +"
--- OUTSIDE RECORDS SUMMARY | ~2018-09-27 | XMS | Encounter Summary ---
Demographics + + + | Address | [address] | | | [place] [address] | + + + | Home Phone | | + + + | Preferred Language | Unknown | + + + | Marital Status | | + + + | Yarsani Affiliation | PRE | + + + | Race | White | + + + | Ethnic Group | Not or | + + + Author + + + | Author | [facility] | + + + | Organization | [facility] | + + + | Address | Unknown | + + + | Phone | Unavailable | + + + Support + + +---------+ + | Name | Relationship | Address | Phone | + + +---------+ + | Marnie Ontiveros | ECON | Unknown | | + + +---------+ + Care Team Providers + +------+ + | Care Plant Changer Name | Role | Phone | [...] + + + + | 03/09/ | Anesthesia | [facility] | Barbra Richardson, | | | 2018 | Event | [address] | ENGINEERING TECHNICAL WRITER [address] | | | | | [address] [facility] | [address] | | | | | [facility], | [place], [place] | | | | | [place] [address] | [address] | | | | | | [phone] | | | | | | | | +--------+ + + + + Anesthesia Record + + + + + | Procedure Name | Responsible | Anesthesia Start | Anesthesia Stop Time | | | Anesthesiologist | Time | | + + + + + | DIRECT BROWLIFT WITH | Brandon Griffith MD | 03/09/18 1110 | 03/09/18 1200 | | BLEPHAROPLASTY | | | | | (Bilateral Eye) | | | | + + + + + +----+---+ + + | Da | T | Event | Comment | | te | i | | | | | m | | | | | e | | | +----+---+ + + | 11 | 1 | Pt. Check | Prior to anesthesia start, pt. Identified, examined, chart | | /0 | 0 | | reviewed, PARQ held, anesthetic plan made or approved by | | 9/ | 4 | | attending anesthesiologist. NPO status confirmed as appropriate | | 20 | 5 | | for procedure Preoperative evaluation: unchanged | | 18 | | | | +----+---+ + + | | 1 | Eq Check | Anesthesia machine checked Equipment verified | | | 1 | | | | | 1 | | | | | 0 | | | +----+---+ + + | | 1 | An Start | | | | 1 | | | | | 1 | | | | | 0 | | | +----+---+ + + | | 1 | An Start | | | | 1 | Data | | | | 1 | | | | | 0 | | | +----+---+ + + | | 1 | O2 by NC | | | | 1 | | | | | 1 | | | | | 0 | | | +----+---+ + + | | 1 | Vitals | Monitors applied Vital signs checked Patient ready for anesthesia | | | 1 | Checked | | | | 1 | | | | | 7 | | | +----+---+ + + | | 1 | Ready | | | | 1 | | | | | 1 | | | | | 7 | | | +----+---+ + + | | 1 | Abx held | Contraindicated, or not indicated for this procedure, or already | | | 1 | Medical or | receiving antibiotics | | | 1 | Surgical | | | | 7 | Reason | | +----+---+ + + | | 1 | Pause | | | | 1 | | | | | 1 | | | | | 7 | | | +----+---+ + + | | 1 | Local | | | | 1 | Anesthetic | | | | 1 | by Surgeon | | | | 7 | | | +----+---+ + + | | 1 | Incision | | | | 1 | | | | | 2 | | | | | 1 | | | +----+---+ + + | | 1 | Surgery end | | | | 1 | | | | | 5 | | | | | 6 | | | +----+---+ + + | | 1 | an stop | | | | 1 | data | | | | 5 | | | | | 6 | | | +----+---+ + + | | 1 | PACU Rpt | | | | 2 | Given | | | | 0 | | | | | 0 | | | +----+---+ + + | | 1 | Anesthesia | | | | 2 | End | | | | 0 | | | | | 0 | | | +----+---+ + + +------+ | Meds | +------+ + +---------+ | Name | Total | + +---------+ | alfentanil | 750 mcg | + +---------+ | dexamethasone | 4 mg | + +---------+ | LR | 200 mL | + +---------+ + + | Name | + + | O2 Flow Rate (Total Liters) | + + + + | No blood administrations on file. | + + +--------+ + + + | Type | Details | Placement | Removal | +--------+ + + + | Periph | 03/09/18; Right; Forearm; 22 g; | 03/09/18 0000 by | 03/09/18 1256 by | | eral | None; No; Positive; 03/09/18; | Cassie Horowitz RN | Samia Gómez RN | | IV | 1256 | | | +--------+ + + + | Incisi | 03/09/18; 1158; Upper; eye; | 03/09/18 1158 by | 03/09/18 1256 by | | on | 03/09/18; 1256 | Samia Gómez RN | Samia Gómez, RN | +--------+ + + + documented in this encounter Social History + +-------+ +--------+------+ | Tobacco [...] Diagnoses Not on filedocumented in this encounter Administered Medications + +--------+ +---------+------+------+ | Medication Order | MAR | Action | Dose | Rate | Site | | | Action | Date | | | | + +--------+ +---------+------+------+ | alfentanil (ALFENTA) injection | Given | 03/09/20 | 250 mcg | | | | INTRAPROCEDURE PRN, Starting Fri | | 18 11:17 | | | | | 03/09/18 at 1111, Until Fri | | AM PST | | | | | 03/09/18 at 1156 | | | | | | + +--------+ +---------+------+------+ +-------+ +---------+---+---+ | Given | 03/09/20 | 250 mcg | | | | | 18 11:15 | | | | | | AM PST | | | | +-------+ +---------+---+---+ | Given | 03/09/20 | 250 mcg | | | | | 18 11:11 | | | | | | AM PST | | | | +-------+ +---------+---+---+ +---+---+ | | | +---+---+ + +-------+ +------+---+---+ | dexamethasone (DECADRON) | Given | 03/09/20 | 4 mg | | | | injection INTRAPROCEDURE PRN, | | 18 11:43 | | | | | Starting 03/09/18 at 1143, | | AM PST | | | | | Until 03/09/18 at 1156 | | | | | | + +-------+ +------+---+---+ +---+---+ | | | +---+---+ + + + +---+---+---+ | lactated Ringers IV | given by | 03/09/20 | | | | | intravenous, INTRAPROCEDURE | | 18 11:48 | | | | | CONTINUOUS PRN, Starting Fri | anesthes | AM PST | | | | | 03/09/18 at 1107, Until Fri | iology | | | | | | 03/09/18 at 1156 | | | | | | + + + +---+---+---+ +---------+ +---+---+---+ | New Bag | 03/09/20 | | | | | | 18 11:07 | | | | | | AM PST | | | | +---------+ +---+---+---+ +---+---+ | | | +---+---+ documented in this encounter"
--- OUTSIDE RECORDS SUMMARY | ~2018-09-27 | XMS | Encounter Summary ---
Demographics + + + | Address | [address] | | | [place] [address] | + + + | Home Phone | | + + + | Preferred Language | Unknown | + + + | Marital Status | | + + + | Congregation Affiliation | PRE | + + + | Race | White | + + + | Ethnic Group | Not or | + + + Author + + + | Author | [facility] | + + + | Organization | [facility] | + + + | Address | Unknown | + + + | Phone | Unavailable | + + + Support + + +---------+ + | Name | Relationship | Address | Phone | + + +---------+ + | Marnie Ontiveros | ECON | Unknown | | + + +---------+ + Care Team Providers + +------+ + | Care Heart Coordinator Name | Role | Phone | + [...] | | | [address] | [place], [place] | | | | | [address] | [address] | | | | | Mailcode: [address] | [phone] | | | | | [place], [place] | | | | | | [address] | | | | | | [phone] | | | +--------+ + + + [...]
--- OUTSIDE RECORDS SUMMARY | ~2018-09-27 | XMS | Clinical Summary ---
Demographics + + + | Address | [address] | | | [place] [address] | + + + | Home Phone | | + + + | Preferred Language | Unknown | + + + | Marital Status | | + + + | Confucianism Affiliation | PRE | + + + [...] Team Providers + +------+ + | Care Project Mgr Name | Role | Phone | + +------+ + | Christiano Wood DO | PP | | + +------+ + Source Comments MOHIT is fully live on both [facility] Ambulatory and [facility] InPatient.[facility] Allergies + + + + + [...] | 11/0 | | Activ | | tjzfandd-asbbnmohw-s | eyelid incisions | | | 9/20 [...] | | | | | | | [address] | | + +--------+ +--------+ + +--------+ | [facility] | [facility] | xxxxxxxxx | 05/01/19 | | | [...] Person | Self | [birth year] | [address] | | | al/Fam | | 1930 | [phone] | [address] | | | uma | | | [address] (Home) | [place] [address] | + +--------+ +--------+ + + | Abisai Ontiveros | Agency | Self | [birth year] | [address] | | | | | 1930 | [phone] | [address] | | | | | | [address] (Home) | [place] [address] | + +--------+ +--------+ + +
--- OUTSIDE RECORDS SUMMARY | ~2018-09-27 | XMS | Encounter Summary ---
Demographics + + + | Address | [address] | | | [place] [address] | + + + | Home Phone | | + + + | Preferred Language | Unknown | + + + | Marital Status | | + + + | Congregational Affiliation | PRE | + + + | Race | White | + + + | Ethnic Group | Not or | + + + Author + + + | Author | [facility] | + + + | Organization | [facility] | + + + | Address | Unknown | + + + | Phone | Unavailable | + + + Support + + +---------+ + | Name | Relationship | Address | Phone | + + +---------+ + | Marnie Ontiveros | ECON | Unknown | | + + +---------+ + Care Team Providers + +------+ + | Care Technical Support Coordinator Name | Role | Phone | + +------+ + | Christiano Wood DO | PCP | | + +------+ + Encounter Details +--------+ + + + + | Date | Type | Department | Care Team | Description | +--------+ + + + + | 03/10/ | Telephone | [facility] | Emil Parsons MD | | | 2018 | | [place] | [address] | | | | | Oculoplastics at | Blvd [place], [place] | | | | | [facility] [address] | [address] | | | | | [address] [facility] | [phone] | | | | | Mailcode: [address] | | | | | | [place], [place] | | | | | | [address] | | | | | | [phone] | | | +--------+ + + + [...]
--- OUTSIDE RECORDS SUMMARY | ~2018-09-27 | XMS | Encounter Summary ---
Demographics + + + | Address | [address] | | | [place] [address] | + + + | Home Phone | | + + + | Preferred Language | Unknown | + + + | Marital Status | | + + + | Mu-Ism Affiliation | PRE | + + + | Race | White | + + + | Ethnic Group | Not or | + + + Author + + + | Author | [facility] | + + + | Organization | [facility] | + + + | Address | Unknown | + + + | Phone | Unavailable | + + + Support + + +---------+ + | Name | Relationship | Address | Phone | + + +---------+ + | Marnie Ontiveros | ECON | Unknown | | + + +---------+ + Care Team Providers + +------+ + | Care Shake Feeder Name | Role | Phone | + [...] | | | | | n | [facility] Mailcode: | | | | | | [id number] [place], [place] | | | | | | [address] | | | | | | [phone] | | | +--------+ + + + [...]
--- OUTSIDE RECORDS SUMMARY | ~2018-09-27 | XMS | Encounter Summary ---
Demographics + + + | Address | [address] | | | [place] [address] | + + + | Home Phone | | + + + | Preferred Language | Unknown | + + + | Marital Status | | + + + | Temple Affiliation | Unknown | + + + | Race | Unknown | + + + | Ethnic Group | Unknown | + + + Author + + + | Author | [facility] | + + + | Organization | [facility] | + + + | Address | Unknown | + + + | Phone | Unavailable | + + + Support + + + + + | Name | Relationship | Address | Phone | + + + + + | Marcial Ontiveros | ECON | [address] | | | | | [place], | | | | | [place] [address] | | + + + + + Care Team Providers + +------+ + | Care Lidding Machine Operator Name | Role | Phone | + +------+ + | Christiano Wood DO | PCP | | + +------+ + Reason for Visit +--------+ + | Reason | Comments | +--------+ + | Other | bone density report 04/20/18 | +--------+ + Encounter Details +--------+ + + + + | Date | Type | Department | Care Team | Description | +--------+ + + + + | 07/05/ | Documentati | [facility] | Nerissa Rodrigues, | Other (bone density | | 2019 | on Only | Cardiology Yin | [facility] | report 04/20/18) | | | | [address] [place] | | | | | | [facility] [place] | | | | | | [address] | | | | | | [phone] | | | +--------+ + + + [...] [place] | | | | | | [place] | | | | | | [address] | | | | | | | | +--------+---------+ + + + as of this encounter Visit Diagnoses Not on filein this encounter"
--- OUTSIDE RECORDS SUMMARY | ~2018-09-27 | XMS | Encounter Summary ---
Demographics + + + | Address | [address] | | | [place] [address] | + + + | Home Phone [...] + + + | Author | [facility] | + + + | Organization | [facility] | + + + | Address | Unknown | + + + | Phone | Unavailable | + + + Support + + +---------+ + | Name | Relationship | Address | Phone | + + +---------+ + | Marnie Ontiveros | ECON | Unknown | | + + +---------+ + Care Team Providers + +------+ + | Care Noc Analyst Name | Role | Phone | + [...] Pre-Admission | | 2018 | Orders | [place] | [address] | | | | | Oculoplastics at | [address] [place], [place] | | | | | [address] | [address] | | | | | [address] | [phone] | | | | | Mailcode: [address] | | | | | | [place], [place] | | | | | | [address] | | | | | | [phone] | | | +--------+ + + + [...]
--- OUTSIDE RECORDS SUMMARY | ~2018-09-27 | XMS | Encounter Summary ---
Demographics + + + | Address | [address] | | | [place] [address] | + + + | Home Phone | | + + + | Preferred Language | Unknown | + + + | Marital Status | | + + + | Anabaptism Affiliation | PRE | + + + [...] Team Providers + +------+ + | Care Position Classifier Name | Role | Phone | + [...] | [address] | WINDING MACHINE OPERATOR [address] | | | | | [facility] | [address] | | | | | [facility], | [place], [place] | | | | | [place] [address] | [address] | | | | | | [phone] | | | | | | | [...]
--- OUTSIDE RECORDS SUMMARY | ~2018-09-27 | XMS | Encounter Summary ---
Demographics + + + | Address | [address] | | | [place] [address] | + + + | Home Phone | | + + + | Preferred Language | Unknown | + + + | Marital Status | | + + + | Judaism Affiliation | PRE | + + + | Race | White | + + + | Ethnic Group | Not or | + + + Author + + + | Author | [facility] | + + + | Organization | [facility] | + + + | Address | Unknown | + + + | Phone | Unavailable | + + + Support + + +---------+ + | Name | Relationship | Address | Phone | + + +---------+ + | Marnie Ontiveros | ECON | Unknown | | + + +---------+ + Care Team Providers + +------+ + | Care Plant Wire Chief Name | Role | Phone | + +------+ + | No Pcp Per Patient | PCP | Unavailable | + +------+ + Encounter Details +--------+ + + + + | Date | Type | Department | Care Team | Description | +--------+ + + + + | 01/09/ | Abstract | [facility] | Emil Parsons MD | | | 2018 | | [place] | [address] | | | | | Oculoplastics at | Blvd [place], [place] | | | | | [facility] [address] | [address] | | | | | [address] [facility] | [phone] | | | | | Mailcode: [facility] | | | | | | [place], [place] | | | | | | [address] | | | | | | [phone] | | | +--------+ + + + [...]
--- OUTSIDE RECORDS SUMMARY | ~2018-09-27 | XMS | Clinical Summary ---
Demographics + + + | Address | [address] | | | [place] [address] | + + + | Home Phone | | + + + | Preferred Language | Unknown | + + + | Marital Status | | + + + | Rastafarian Affiliation | Unknown | + + + | Race | Unknown | + + + | Ethnic Group | Unknown | + + + Author + + + | Author | [facility] | | | and [place] | + + + | Organization | [facility] | | | and [place] | + + + | Address | Unknown | + + + | Phone | Unavailable | + + + Support + + + + + | Name | Relationship | Address | Phone | + + + + + | Marcial Ontiveros | ECON | [address] | | | | | [place], | | | | | [place] [address] | | + + + + + Care Team Providers + +------+ + | Care Pipe Cleaning Machine Operator Name | Role | Phone | + +------+ + | No, Physician | PP | Unavailable | + +------+ + Allergies + + + +--------+ + | Active Allergy | Reactions | Severity | Noted | Comments | | | | | Date | | + + + +--------+ + | Morphine Sulfate | | | | | + + + +--------+ + Medications + + + +---------+------+------+-------+ | Medication | Sig | Dispensed | Refills | Star | End | Statu | | | | | | t | Date | s | | | | | | Date | | | + + + +---------+------+------+-------+ | DULoxetine | Take 30 mg by mouth | | 0 | 09/1 | | Activ | | (CYMBALTA) 30 mg | Daily. | | | 3/20 | | e | | capsule | | | | 12 | | | + + + +---------+------+------+-------+ | omeprazole | Take 20 mg by mouth | | 0 | 09/1 | | Activ | | (PRILOSEC) 20 mg | Daily. | | | 3/20 | | e | | TBEC | | | | 12 | | | + + + +---------+------+------+-------+ | multivitamin | Take 1 tablet by | | 0 | 09/1 | | Activ | | (THERAGRAN) per | mouth once daily | | | 3/20 | | e | | tablet | | | | 12 | | | + + + +---------+------+------+-------+ | aspirin 325 mg | Take 325 mg by mouth | | 0 | 09/1 | | Activ | | tablet | Daily. | | | 3/20 | | e | | | | | | 12 | | | + + + +---------+------+------+-------+ | naproxen | Take 500 mg by mouth | | 0 | 09/1 | | Activ | | (NAPROSYN) 500 mg | 2 times daily. | | | 3/20 | | e | | tablet | | | | 12 | | | + + + +---------+------+------+-------+ | sitagliptan | Take 50 mg by mouth | | 0 | 09/1 | | Activ | | (JANUVIA) 50 MG | Daily. | | | 3/20 | | e | | tablet | | | | 12 | | | + + + +---------+------+------+-------+ | aspirin 325 mg | Take 325 mg by mouth | | 0 | 09/1 | | Activ | | tablet | Daily. | | | 320 | | e | | | | | | 12 | | | + + + +---------+------+------+-------+ | | Take 25 mg by mouth | | 0 | 091 | | Activ | | hydrochlorothiazide | Daily. | | | 320 | | e | | 25 mg tablet | | | | 12 | | | + + + +---------+------+------+-------+ | metFORMIN | Take 2 tablets by | | 0 | 04/1 | | Activ | | (GLUCOPHAGE) 850 mg | mouth every morning | | | 820 | | e | | tablet | and one tablet every | | | 11 | | | | | evening | | | | | | + + + +---------+------+------+-------+ | docusate sodium | Take 100 mg by mouth | | 0 | | | Activ | | (COLACE) 100 mg | 2 times daily. | | | | | e | | capsule | | | | | | | + + + +---------+------+------+-------+ | Trospium Chloride | Take by mouth. | | 0 | | | Activ | | (SANCTURA PO) | | | | | | e | + + + +---------+------+------+-------+ | Insulin Glargine | Inject 50 Units | | 0 | | | Activ | | (LANTUS SC) | under the skin. | | | | | e | + + + +---------+------+------+-------+ | Insulin Aspart | Inject 8 Units under | | 0 | | | Activ | | (NOVOLOG SC) | the skin 3 times | | | | | e | | | daily. 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 | + + + Social History + [...] + + + | Blood Pressure | 112/70 | 08/08/2011 0000 PDT | + + + + | Pulse | 83 | 04/09/2015 1035 PST | + + + + | Temperature | - | - | + + + + | Respiratory Rate | 14 | 04/09/2015 1035 PST | + + + + | Oxygen Saturation | 93% | 04/09/20151034 PST | + + + + | Inhaled Oxygen | - | - | | Concentration | | | + + + + | Weight | 120.2 kg (265 lb) | 04/09/20151034 PST | + + + + | Height | 181.6 cm (5' 11.5") | 04/09/20151034 PST | + + + + | Body Mass Index | 36.44 | 04/09/20151034 PST | + + + + Plan of Treatment + + + + + | Health Maintenance | Due Date | Last Done | Comments | + + + + + | Vaccine: | | | | | Dtap/Tdap/Td (1 - | 9 | | | | Tdap) | | | | + + + + + | Vaccine: Zoster (1 | | | | | of 2) | 0 | | | + + + + + | Vaccine: | | | | | Pneumococcal 65+ | 5 | | | | Low/Medium Risk (1 | | | | | of 2 - PCV13) | | | | + + + + + | Vaccine: Influenza | | | | | (Season Ended) | 9 | | | + + + + + Results Not on filefrom Last 3 Months Insurance + +--------+ +--------+ +---------+--------+ | Payer | Benefi | Subscriber | Effect | Phone | Address | Type | | | t Plan | ID | ninoska | | | | | | / | | Dates | | | | | | Group | | | | | | + +--------+ +--------+ +---------+--------+ | MEDICARE | MEDICA | [id number] | | [phone] | | Medica | | | RE | | [phone]-Pr | 5 | | re | | | PART A | | esent | | | | | | AND B | | | | | | + +--------+ +--------+ +---------+--------+ | [facility] | IHS | [id number] | 02/09/ | | | Indemn | | SERVICE | YELLOW | | 2015-P | | | ity | | | [place] | | resent | | | | + +--------+ +--------+ +---------+--------+ + +--------+ +--------+ + + | Guarantor Name | Accoun | Relation to | Date | Phone | Billing Address | | | t Type | Patient | of | | | | | | | | | | + +--------+ +--------+ + + | Abisai Ontiveros | Person | Self | [birth year] | [address] | | | mauricio/Ole | | 1930 | [phone] | [address] | | | uma | | | [address] (Home) | [place] | | | | | | | [address] | + +--------+ +--------+ + + Advance Directives Patient has advance care planning documents on file. For more information, please contact:[facility] [place] [address]
--- OUTSIDE RECORDS SUMMARY | ~2018-09-27 | XMS | Encounter Summary ---
Demographics + + + | Address | [address] | | | [place] [address] | + + + | Home Phone | | + + + | Preferred Language | Unknown | + + + | Marital Status | | + + + | Episcopalian Affiliation | PRE | + + + | Race | White | + + + | Ethnic Group | Not or | + + + Author + + + | Author | [facility] | + + + | Organization | [facility] | + + + | Address | Unknown | + + + | Phone | Unavailable | + + + Support + + +---------+ + | Name | Relationship | Address | Phone | + + +---------+ + | Marnie Ontiveros | ECON | Unknown | | + + +---------+ + Care Team Providers + +------+ + | Care Weigher Packing Name | Role | Phone | + [...] | | | | | Therapy [facility] [address] | [place], [place] | | | | | [address] | [address] | | | | | Outpatient Therapy | [phone] | | | | | Center 2nd floor | | | | | | Mailcode: [address] | | | | | | [place], [place] | | | | | | [address] | | | | | | [phone] | | | +--------+ + + + [...]
--- OUTSIDE RECORDS SUMMARY | ~2018-09-27 | XMS | Clinical Summary ---
Demographics + + + | Address | [address] | | | [place] [address] | + + + | Home Phone | | + + + | Preferred Language | Unknown | + + + | Marital Status | | + + + | Scientology Affiliation | Unknown | + + + | Race | Unknown | + + + | Ethnic Group | Unknown | + + + Author + + + | Author | [facility] | + + + | Organization | [facility] [employer] [facility] | + + + | Address | Unknown | + + + | Phone | Unavailable | + + + Support + + + + + | Name | Relationship | Address | Phone | + + + + + | Marcial Francis | ECON | [address] | | | | | [place], | | | | | [place] [address] | | + + + + + Care Team Providers + +------+ + | Care Bottom Buffer Name | Role | Phone | + +------+ + | Christiano Wood DO | PP | | + +------+ + Allergies + + + + + + | Active Allergy | Reactions | Severity | Noted | Comments | | | | | Date | | + + + + + + | Morphine | Other (See Comments) | Medium | 08/31/19 | Becomes ryley and | | | | | 19 | reacts really | | | | | | strange | + + + + + + Current Medications + + +-------+---------+------+------+-------+ | Prescription | Sig. | Disp. | Refills | Star | End | Statu | | | | | | t | Date | s | | | | | | Date | | | + + +-------+---------+------+------+-------+ | DULoxetine | Take 30 mg by mouth | | | | | Activ | | (CYMBALTA) 30 MG | daily. | | | | | e | | capsule | | | | | | | + + +-------+---------+------+------+-------+ | levothyroxine | Take 25 mcg by mouth | | | | | Activ | | (SYNTHROID) 25 MCG | every morning | | | | | e | | tablet | before breakfast. | | | | | | + + +-------+---------+------+------+-------+ | insulin glargine | Inject into the | | | | | Activ | | (LANTUS SOLOSTAR) | skin nightly. | | | | | e | | 100 UNIT/ML | | | | | | | | injection | | | | | | | + + +-------+---------+------+------+-------+ | metFORMIN | Take 850 mg by mouth | | | | | Activ | | (GLUCOPHAGE) 850 MG | 2 (two) times daily | | | | | e | | tablet | with meals. | | | | | | + + +-------+---------+------+------+-------+ | metoprolol | Take 50 mg by mouth | | | | | Activ | | (TOPROL-XL) 50 MG 24 | daily. | | | | | e | | hr tablet | | | | | | | + + +-------+---------+------+------+-------+ | | Take 1 tablet by | | | | | Activ | | losartan-hydrochloro | mouth daily. | | | | | e | | thiazide (HYZAAR) | | | | | | | | 50-12.5 MG per | | | | | | | | tablet | | | | | | | + + +-------+---------+------+------+-------+ | Cholecalciferol | Take by mouth. | | | | | Activ | | 2000 units CAPS | | | | | | e | + + +-------+---------+------+------+-------+ | aspirin 325 MG | Take 325 mg by mouth | | | | | Activ | | tablet | daily with | | | | | e | | | breakfast. | | | | | | + + +-------+---------+------+------+-------+ | Multiple | Take 1 tablet by | | | | | Activ | | Vitamins-Minerals | mouth daily. | | | | | e | | (MULTIVITAMIN WITH | | | | | | | | MINERALS) tablet | | | | | | | + + +-------+---------+------+------+-------+ | cyanocobalamin | Take 500 mg by | | | | | Activ | | (VITAMIN B-12) 100 | mouth. | | | | | e | | MCG tablet | | | | | | | + + +-------+---------+------+------+-------+ | Psyllium 500 MG | Take 1 packet by | | | | | Activ | | CAPS | mouth 2 (two) times | | | | | e | | | daily. | | | | | | + + +-------+---------+------+------+-------+ | insulin aspart | Inject into the | | | | 05/0 | Disco | | (NOVOLOG) 100 | skin 3 (three) times | | | | 2/20 | ntinu | | UNIT/ML injection | daily before meals. | | | | 19 | ed | + + +-------+---------+------+------+-------+ Active Problems + + + | Problem | Noted Date | + + + | Alcohol abuse, in remission | 08/08/2011 | + + + | Diabetes mellitus, type II (HCC) | 08/08/2011 | + + + | Obesity | 08/08/2011 | + + + + + | Overview: Overview: | | PLRU [id number] Decision | + + + + + | Obstructive sleep apnea | 08/08/2011 | + + + | Acoustic neuroma ([facility]) | 05/21/2009 | + + + | Depression | 2005 | + + + | Diabetic neuropathy ([facility]) | 2005 | + + + | Gait instability | 2005 | + + + Encounters +--------+ + + + + | Date | Type | Specialty | Care Team | Description | +--------+ + + + + | 09/25/ | Documentati | | Suha Hargrove | Other (09-19-18 | | 2019 | on Only | | [facility] Khan | STRESS TEST St | | | | | | [place] ) | +--------+ + + + + | 09/19/ | Ancillary | | Pricilla Wahl DO | Abnormal EKG; Chest | | 2019 | Procedure | | | pain, unspecified | | | | | | type | +--------+ + + + + | 09/10/ | Documentati | | Pricilla Wahl DO | Holter (24 hr) | | 2019 | on Only | | Neisha Dowell MA | | +--------+ + + + + | 09/10/ | Documentati | | Karen Gamboa, | Cardiac Event | | 2019 | on Only | | RT | Monitor (end of | | | | | | study) | +--------+ + + + + | 08/30/ | Initial | | Pricilla Wahl DO | Abnormal EKG | | 2019 | consult | | | (Primary Dx); Chest | | | | | | pain, unspecified | | | | | | type; 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); | | | | | | PVC's (premature | | | | | | ventricular | | | | | | contractions); | | | | | | Hypertension, | | | | | | unspecified type | +--------+ + + + + | 07/05/ | Documentati | | Nerissa Rodrigues, | Other (bone density | | 2019 | on Only | | MA | report 04/20/18) | +--------+ + + + + | 07/05/ | Documentati | | Nerissa Rodrigues, | Other ([facility] | | 2019 | on Only | | MA | labs) | +--------+ + + + + from Last 3 Months Family History + + +------+ + | Medical History | Relation | Name | Comments | + + +------+ + | Heart Problems | Father | | | + + +------+ + + +------+ + + | Relation | Name | Status | Comments | + +------+ + + | Father | | | | + +------+ + + | Mother | | | | + +------+ + + Social History + +-------+ +--------+------+ [...] on file | | + + + Last Filed Vital Signs + [...] AM PDT | + + + + Plan of Treatment +--------+---------+ + + + | Date | Type | Specialty | Care Team | Description | +--------+---------+ + + + | 12/13/ | Office | | Pricilla Wahl DO | | | 2019 | Visit | | [address] | | | | | | [place] | | | | | | [address] | | | | | | | | +--------+---------+ + + + + + + + + | Health Maintenance | Due Date | Last Done | Comments | + + + + + | Diabetic Eye Exam | | | | | | 0 | | | + + + + + | Diabetic Foot Exam | | | | | | 0 | | | + + + + + | Hemoglobin A1c | | | | | | 0 | | | + + + + + | Microalbumin | | | | | Screening | 0 | | | + + [...] | | + + + + + Procedures + +--------+ + + + | Procedure Name | Priori | Date/Time | Associated Diagnosis | Comments | | | ty | | | | + +--------+ + + + | ECHO OUTSIDE | Routin | 09/19/2018 | Abnormal EKG | Results for this | | INTERPRETATION | e | 12:40 PM | Chest pain, | procedure are in the | | STANDARD | | PDT | unspecified type | results section. | + +--------+ + + + | EKG STANDARD 12 LEAD | Routin | 08/30/2018 | Abnormal EKG | Results for this | | | e | 10:32 AM | | procedure are in the | | | | PDT | | results section. | + +--------+ + + + from Last 3 Months Results ECHO outside interpretation standard (09/19/2018 12:40 [...] | + + + | Patient Name: Hieu Francis Date of : 1930 | [facility] | | Performing Physician: Pricilla Wahl | [...] | cm TAPSE: 2.88 cm AR Dec Caswell: 1.96 m/s2 AR Dec Time: | | [...] MV A Fabrice: 0.94 m/s MV Dec Caswell: 5.00 m/s2 MV DecT: | | | 206.30 ms MV E Fabrice: 1.03 m/s MV E/A Ratio: 1.09 E/E' | | | Sept: 24.55 E' Lat: 0.08 m/s E' Sept: 0.04 m/s | | | RAP: 5 mmHg RV S': 0.11 m/s RVSP: 39.44 mmHg TR | | | maxP.44 mmHg TR Vmax: 2.93 m/s Ore Sampler: | | | Authenticated by: Pricilla Wahl Report Date/Time: 09-20-2018 6:28:38 | | + + + + + | Procedure Note | + + | Syed, Rad Results In - 09/20/2018 6:30 AM PDT Patient Name: Eva Francis of | | : 1930Accession: [id number] Physician: Pricilla | | Frye INDICATIONS | [...] mlLAESV Index (A-L): 39.34 ml/m2LAAs A2C: 27.67 [id number] A-L | | A2C: 99.44 mlLAESV MOD A2C: 98.07 mlLALs A2C: 6.53 cmLAAs A4C: 27.70 [id number] | | A-L A4C: 98.88 mlLAESV MOD A4C: 92.94 mlLALs A4C: 6.58 cmRAAs: 22.19 [id number] | | A-L: 69.90 mlRAESV MOD: 65.88 mlRALs: 5.97 cmTAPSE: 2.88 cmAR Dec Caswell: 1.96 | | m/s2AR Dec Time: 1791.55 msAR maxP.52 mmHgAR PHT: 519.55 msAR Vmax: 3.51 | | m/Emi Env.Ti: 316.55 msAV maxP.02 mmHgAV meanP.97 mmHgAV Vmax: 1.32 | | m/Emi Vmean: 0.93 m/Emi VTI: 29.65 cmAVA Vmax: 2.93 cm2AVA (VTI): 3.28 [id number] | | Vmax: 0.00 cm2/m2AVAI (VTI): 0.00 cm2/m2LVOT Env.Ti: 350.46 msLVOT maxP.15 | | mmHgLVOT meanP.48 mmHgLVSI Dopp: 38.44 ml/m2LVSV Dopp: 97.25 mlLVOT Vmax: | | 1.01 m/sLVOT Vmean: 0.72 m/sLVOT VTI: 25.49 cmMV A Fabrice: 0.94 m/sMV Dec Caswell: | | 5.00 m/s2MV DecT: 206.30 msMV [...] | |TAPSE: 2.88 cm | |AR Dec Caswell: 1.96 m/s2 | |AR Dec Time: 1791.55 [...] A Fabrice: 0.94 m/s | |MV Dec Caswell: 5.00 m/s2 | |MV DecT: 206.30 ms | |MV E Fabrice: 1.03 m/s | |MV E/A Ratio: 1.09 | |E/E' Sept: 24.55 | |E' Lat: 0.08 m/s | |E' Sept: 0.04 m/s | |RAP: 5 mmHg | |RV S': 0.11 m/s | |RVSP: 39.44 mmHg | |TR maxP.44 mmHg | |TR Vmax: 2.93 m/s | | | |Ore Sampler: | |Authenticated by: Pricilla Wahl | |Report [...] | + + + + + | [facility] | [address] | [facility] [address] | | + + + + + [...] + + + + | Calculated P [place] | 12 | degrees | [facility] EKG | + + + + + | Calculated R [place] | -49 | degrees | [facility] EKG | + + + + + | Calculated T [place] | -7 | degrees | [facility] EKG | + + + + + | Diagnosis | Please refer to | | [facility] EKG | | | Providers office visit | | | | | note for Providers | | | | | Interpretation.Confirmed | | | | | by [facility] [place] Read Only, | | | | | [facility]ie ([id number]), | | | | | editor magazine Torsten Garcia | | | | | ([id number]) on 08/30/2018 | | | | | 10:52:25 AM | | | + + + + + + + + + + | Performing | Address | City/State/Zipcode | Phone Number | | Organization | | | | + + + + + | [facility] | [address] | [place] [address] | | + + + + + from Last 3 Months Insurance + +--------+ +------+-------+ + | Payer | Benefi | Subscriber | Type | Phone | Address | | | t Plan | ID | | | | | | / | | | | | | | Group | | | | | + +--------+ +------+-------+ + | MEDICARE | MEDICA | [id number] | | | [address] | | | RE | | | | [place] [address] | | | IP-OP | | | | | + +--------+ +------+-------+ + | /[facility] | YELLOW | [id number] | | | | | PLANS | [place] | | | | | + +--------+ +------+-------+ + + +--------+ +--------+ + + | Guarantor Name | Accoun | Relation to | Date | Phone | Billing Address | | | t Type | Patient | of | | | | | | | | | | + +--------+ +--------+ + + | HIEU FRANCIS | Person | Self [birth year] Home: | [address] | | | al/Fam | | [phone] | [phone] [address] | | | uma | | | [phone] | [place], [place] | | | | | | | [phone] | + +--------+ +--------+ + +
--- OUTSIDE RECORDS SUMMARY | ~2018-09-27 | XMS | Encounter Summary ---
Demographics + + + | Address | [address] | | | [place] [address] | + + + | Home Phone | | + + + | Preferred Language | Unknown | + + + | Marital Status | | + + + | Rastafari Affiliation | PRE | + + + [...] Team Providers + +------+ + | Care Car Usher Name | Role | Phone | + [...] [place] | | | | | | ([facility]) | PHYSICIAN | | | | | | Procedures | MED GROUP | | | | | | MRI BRAIN | [address] | | | | | | [address] | [address] | | | | | | | [place] | | | | | | | [place] | | | | | | | [address] | | | | | | | Phone: | | | | | | | [phone] | | | | | | | Fax: | | | | | | | [phone] | | + +--------+ + + + + Encounter Details +--------+ + + + + | Date | Type | Department | Care Team | Description | +--------+ + + + + | 04/02/ | Hospital | Radiology/Imaging | | Canceled (Scheduling | | 2014 | Encounter | Lab at 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
--- OUTSIDE RECORDS SUMMARY | ~2018-09-27 | XMS | Encounter Summary ---
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
--- OUTSIDE RECORDS SUMMARY | ~2018-09-27 | XMS | Encounter Summary ---
Demographics + + + | Address | [address] | | | [place] [address] | + + + | Home Phone [...] + + + | Author | [facility] | + + + | Organization | [facility] | + + + | Address | Unknown | + + + | Phone | Unavailable | + + + Support + + +---------+ + | Name | Relationship | Address | Phone | + + +---------+ + | Marnie Ontiveros | ECON | Unknown | | + + +---------+ + Care Team Providers + +------+ + | Care Accounts Payable Coordinator Name | Role | Phone | [...] | | | | | ([facility]) | PHYSICIAN | | | | | | Procedures | MED GROUP | | | | | | MRI BRAIN | [address] | | | | | | [address] | [address] | | | | | | | [place] | | | | | | | [place] | | | | | | | [address] | | | | | | | Phone: | | | | | | | [phone] | | | | | | | Fax: | | | | | | | [phone] | | +--------+--------+ + + + + Encounter Details +--------+ + + + + | Date | Type | Department | Care Team | Description | +--------+ + + + + | 03/16/ | Outside | Diagnostic Imaging | Ez Ruby MD | | | 2015 | Referral | Services at [facility] | [facility] PHYSICIAN | | | | Order | [address] | MED GROUP [facility] W | | | | | [facility] | [facility] [address] | | | | | Mailcode: L[address] [facility] | [place] | | | | | 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
--- OUTSIDE RECORDS SUMMARY | ~2018-09-27 | XMS | Encounter Summary ---
Demographics + + + | Address | [address] | | | [place] [address] | + + + | Home Phone | | + + + | Preferred Language | Unknown | + + + | Marital Status | | + + + | Jain Affiliation | Unknown | + + + | Race | Unknown | + + + | Ethnic Group | Unknown | + + + Author + + + | Author | [facility] | + + + | Organization | [facility] | + + + | Address | Unknown | + + + | Phone | Unavailable | + + + Support + + + + + | Name | Relationship | Address | Phone | + + + + + | Marcial Ontiveros | ECON | [address] | | | | | [place], | | | | | [place] [address] | | + + + + + Care Team Providers + +------+ + | Care Fire Protection Engineer Name | Role | Phone | + +------+ + | Christiano Wood DO | PCP | | + +------+ + Reason for Visit +--------+ + | Reason | Comments | +--------+ + | Holter | 24 hr | +--------+ + Holter (Routine) +--------+--------+ + + + + | Status | Reason | Specialty | Diagnoses / | Referred By | Referred To | | | | | Procedures | Contact | Contact | +--------+--------+ + + + + | Closed | | Cardiology | Diagnoses | Maryuri | Mark | | | | | 24 hour | DO Pricilla | Cardiology | | | | | Procedures | [address] | | | | | [address] | [address] | [address] | | | | | | [place] | [place], [place] | | | | | | [place], [place] | [address] | | | | | | [address] | Phone: | | | | | | Phone: | [phone] | | | | | | [phone] | Fax: | | | | | | Fax: | [phone] | | | | | | [phone] | | +--------+--------+ + + + + Encounter Details +--------+ + + + + | Date | Type | Department | Care Team | Description | +--------+ + + + + | 09/10/ | Documentati | MARK Moira | Pricilla Wahl DO | Holter (24 hr) | | 2019 | on Only | Cardiology [place] | [address] | | | | | [address] | [place], [place] | | | | | [facility] 115 | [address] | | | | | [place] [address] | | | | | | [phone] | Neisha Dowell MA | | +--------+ [...] + as of this encounter Progress Notes Neisha Dowell MA - 09/10/2018 9:00 AM PDT24 hour Holter monitor placed on patient. EOB/B illing information discussed. Instructions given and understood. Patient instructed to call [employer] for any billing or monitor questions. in this encounter Plan of Treatment +--------+---------+ + + + | Date | Type | Specialty | Care Team | Description | +--------+---------+ + + + | 12/13/ | Office | Cardiology | Pricilla Wahl DO | | | 2018 | Visit | | [address] | | | | | | [place] | | | | | | [id number] | | | | | | | | +--------+---------+ + + + as of this encounter Visit Diagnoses + + | Diagnosis | + + | Abnormal EKG | + + | Nonspecific abnormal electrocardiogram (ECG) (EKG) | + +"
--- OUTSIDE RECORDS SUMMARY | ~2018-09-27 | XMS | Encounter Summary ---
Demographics + + + | Address | [address] | | | [place] [address] | + + + | Home Phone | | + + + | Preferred Language | Unknown | + + + | Marital Status | | + + + | Orthodoxy Affiliation | PRE | + + + | Race | White | + + + | Ethnic Group | Not or | + + + Author + + + | Author | [facility] | + + + | Organization | [facility] | + + + | Address | Unknown | + + + | Phone | Unavailable | + + + Support + + +---------+ + | Name | Relationship | Address | Phone | + + +---------+ + | Marnie Ontiveros | ECON | Unknown | | + + +---------+ + Care Team Providers + +------+ + | Care Asset Coordinator Name | Role | Phone | [...] [place] | | | | | | [facility], | | | | | | [place] [address] | | | +--------+ + + + [...]
--- OUTSIDE RECORDS SUMMARY | ~2018-09-27 | XMS | Encounter Summary ---
Demographics + + + | Address | [address] | | | [place] [address] | + + + | Home Phone | | + + + | Preferred Language | Unknown | + + + | Marital Status | | + + + | Adventist Affiliation | PRE | + + + [...] Team Providers + +------+ + | Care Seals Engraver Name | Role | Phone | + [...] LARA | | | | | | ([facility]) | PHYSICIAN | | | | | | Procedures | MED GROUP | | | | | | MRI BRAIN | [address] | | | | | | [address] | [address] | | | | | | | [place] | | | | | | | [place] | | | | | | | [address] | | | | | | | Phone: | | | | | | | [phone] | | | | | | | Fax: | | | | | | | [phone] | | +--------+--------+ + + + + Encounter Details +--------+ + + + + | Date | Type | Department | Care Team | Description | +--------+ + + + + | 03/16/ | Outside | Diagnostic Imaging | Ez Ruby MD | | | 2015 | Referral | Services at [facility] | [facility] PHYSICIAN | | | | Order | [address] | MED GROUP 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
--- OUTSIDE RECORDS SUMMARY | ~2018-09-27 | XMS | Encounter Summary ---
Demographics + + + | Address | [address] | | | [place] [address] | + + + | Home Phone | | + + + | Preferred Language | Unknown | + + + | Marital Status | | + + + | Mosque Affiliation | PRE | + + + [...] Team Providers + +------+ + | Care Assistant Casino Shift Manager Name | Role | Phone | + +------+ + | Christiano Wood DO | PCP | | + +------+ + Encounter Details +--------+ + + + + | Date | Type | Department | Care Team | Description | +--------+ + + + + | 03/14/ | Telephone | [facility] | Emil Parsons MD | | | 2018 | | [place] | [address] | | | | | Oculoplastics at | Blvd [place], [place] | | | | | Rachel Isabel [facility] S | [address] | | | | | [address] [facility] | [phone] | | | | | Mailcode: [facility] | | | | | | [place], [place] | | | | | | [address] | | | | | | [phone] | | | +--------+ + + + [...]
--- OUTSIDE RECORDS SUMMARY | ~2018-09-27 | XMS | Encounter Summary ---
Demographics + + + | Address | [address] | | | [place] [address] | + + + | Home Phone | | + + + | Preferred Language | Unknown | + + + | Marital Status | | + + + | Adventist Affiliation | PRE | + + + | Race | White | + + + | Ethnic Group | Not or | + + + Author + + + | Author | [facility] | + + + | Organization | [facility] | + + + | Address | Unknown | + + + | Phone | Unavailable | + + + Support + + +---------+ + | Name | Relationship | Address | Phone | + + +---------+ + | Marnie Ontiveros | ECON | Unknown | | + + +---------+ + Care Team Providers + +------+ + | Care Carpenter Ship Name | Role | Phone | + [...] LARA | | | | | | ([facility]) | PHYSICIAN | | | | | | Procedures | MED GROUP | | | | | | MRI BRAIN | [address] | | | | | | [address] | [address] | | | | | | | [place] | | | | | | | [place] | | | | | | | [address] | | | | | | | Phone: | | | | | | | [phone] | | | | | | | Fax: | | | | | | | [phone] | | +--------+--------+ + + + + [...] BERMUDEZ | | | | | | ([facility]) | PHYSICIAN | | | | | | Procedures | MED GROUP | | | | | | MRI BRAIN | [address] | | | | | | [address] | [address] | | | | | | | [place] | | | | | | | [place] | | | | | | | [address] | | | | | | | Phone: | | | | | | | [phone] | | | | | | | Fax: | | | | | | | [phone] | | +--------+--------+ + + + + [...] | | | | | | | [address] | | | | | | | Phone: | | | | | | | [phone] | | | | | | | Fax: | | | | | | | [phone] | | +--------+--------+ + + + + Encounter Details +--------+ + + + + | Date | Type | Department | Care Team | Description | +--------+ + + + + | 04/02/ | Hospital | Diagnostic Imaging | | | | 2014 | Encounter | Services at [facility] | | | | | | [address] [facility] | | | | | | [facility] | | | | | | Mailcode: L340 | | | | | | [facility] | | | | | | [place], [place] | | | | | | [address] | | | | | | [phone] | | | +--------+ + + + [...] subcortical | | | | | | [id number] foci are | | | | | [...] | + +---------+ + + | [facility] DEPARTMENT OF | | | | | RADIOLOGY | | | | + +---------+ + + documented in this encounter Visit Diagnoses + + | Diagnosis | + + | 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
--- OUTSIDE RECORDS SUMMARY | ~2018-09-27 | XMS | Encounter Summary ---
Demographics + + + | Address | [address] | | | [place] [address] | + + + | Home Phone | | + + + | Preferred Language | Unknown | + + + | Marital Status | | + + + | Oriental Orthodox Affiliation | PRE | + + + | Race | White | + + + | Ethnic Group | Not or | + + + Author + + + | Author | [facility] | + + + | Organization | [facility] | + + + | Address | Unknown | + + + | Phone | Unavailable | + + + Support + + +---------+ + | Name | Relationship | Address | Phone | + + +---------+ + | Marnie Ontiveros | ECON | Unknown | | + + +---------+ + Care Team Providers + +------+ + | Care Foreign Exchange Dealer Name | Role | Phone | + [...] | | | | | n | [facility] Mailcode: | | | | | | [address] [place], [place] | | | | | | [address] | | | | | | [phone] | | | +--------+ + + + [...]
--- OUTSIDE RECORDS SUMMARY | ~2018-09-27 | XMS | Encounter Summary ---
Demographics + + + | Address | [address] | | | [place] [address] | + + + | Home Phone | | + + + | Preferred Language | Unknown | + + + | Marital Status | | + + + | Samaritan Affiliation | Unknown | + + + | Race | Unknown | + + + | Ethnic Group | Unknown | + + + Author + + + | Author | [facility] | + + + | Organization | [facility] | + + + | Address | Unknown | + + + | Phone | Unavailable | + + + Support + + + + + | Name | Relationship | Address | Phone | + + + + + | Marcial Ontiveros | ECON | [address] | | | | | [place], | | | | | [place] [address] | | + + + + + Care Team Providers + +------+ + | Care Information Systems Security Developer Name | Role | Phone | + [...] | | | | | Procedures | [address] | | | | | | [place] | Phone: | | | | | | Pharmaceutic | [phone] | | | | | | al (stress | Fax: | | | | | | and rest) | [phone] | | + +--------+ + + + [...] | | electrocardi | [address] | [place], [place] | | | | | ogram (ECG) | [place], | [address] Phone: | | | | | (EKG | [place] [address] | [phone] | | | | | Procedures | Phone: | Fax: | | | | | CRD CONSULT | [phone] | [phone] | | | | | | Fax: | | | | | | | [phone] | | +--------+--------+ + + + + Encounter Details +--------+ + + + + | Date | Type | Department | Care Team | Description | +--------+ + + + + | 08/30/ | Initial | [facility] [place] | Pricilla Wahl DO | Abnormal EKG | | 2019 | consult | Cardiology [place] | [address] | (Primary Dx); Chest | | | | [address] | [facility] | pain, unspecified | | | | [address] | [id number] | type; RBBB (right | | | | [place] [address] | | bundle branch block | | | | [phone] | | with left anterior | | [...] may be different from th e original. [facility] Cardiology Cardiology Consult Note Reason for Consultation: [...] | | | | | [place] | | | | | | [address] | | | | | | | [...] | + + + | Patient Name: Abisia Ontiveros Date of : 1930 | [facility] | | Performing Physician: Pricilla Wahl [...] | cm TAPSE: 2.88 cm AR Dec [place]: 1.96 m/s2 AR Dec Time: | | [...] MV A Fabrice: 0.94 m/s MV Dec [place]: 5.00 m/s2 MV DecT: | | | 206.30 ms MV E Fabrice: 1.03 m/s MV E/A Ratio: 1.09 E/E' | | | Sept: 24.55 E' Lat: 0.08 m/s E' Sept: 0.04 m/s | | | RAP: 5 mmHg RV S': 0.11 m/s RVSP: 39.44 mmHg TR | | | maxP.44 mmHg TR Vmax: 2.93 m/s Travel Pt: | | | Authenticated by: Pricilla Wahl Report Date/Time: 09-20-2018 6:28:38 | | + + + + + | Procedure Note | + + | Syed, Rad Results In - 09/20/2018 6:30 AM PDT Patient Name: Eva Ontiveros of | | : 1930Accession: [id number] Physician: Pricilla | | Frye INDICATIONS | [...] mlLAESV Index (A-L): 39.34 ml/m2LAAs A2C: 27.67 [id number] A-L | | A2C: 99.44 mlLAESV MOD A2C: 98.07 mlLALs A2C: 6.53 cmLAAs A4C: 27.70 [id number] | | A-L A4C: 98.88 mlLAESV MOD A4C: 92.94 mlLALs A4C: 6.58 cmRAAs: 22.19 [id number] | | A-L: 69.90 mlRAESV MOD: 65.88 mlRALs: 5.97 cmTAPSE: 2.88 cmAR Dec [place]: 1.96 | | m/s2AR Dec Time: 1791.55 msAR maxP.52 mmHgAR PHT: 519.55 msAR Vmax: 3.51 | | m/Emi Env.Ti: 316.55 msAV maxP.02 mmHgAV meanP.97 mmHgAV Vmax: 1.32 | | m/Emi Vmean: 0.93 m/Emi VTI: 29.65 cmAVA Vmax: 2.93 cm2AVA (VTI): 3.28 ke1DNDQ | | Vmax: 0.00 cm2/m2AVAI (VTI): 0.00 cm2/m2LVOT Env.Ti: 350.46 msLVOT maxP.15 | | mmHgLVOT meanP.48 mmHgLVSI Dopp: 38.44 ml/m2LVSV Dopp: 97.25 mlLVOT Vmax: | | 1.01 m/sLVOT Vmean: 0.72 m/sLVOT VTI: 25.49 cmMV A Fabrice: 0.94 m/sMV Dec [place]: | | 5.00 m/s2MV DecT: 206.30 msMV [...] | |TAPSE: 2.88 cm | |AR Dec [place]: 1.96 m/s2 | |AR Dec Time: 1791.55 [...] A Fabrice: 0.94 m/s | |MV Dec [place]: 5.00 m/s2 | |MV DecT: 206.30 ms | |MV E Fabrice: 1.03 m/s | |MV E/A Ratio: 1.09 | |E/E' Sept: 24.55 | |E' Lat: 0.08 m/s | |E' Sept: 0.04 m/s | |RAP: 5 mmHg | |RV S': 0.11 m/s | |RVSP: 39.44 mmHg | |TR maxP.44 mmHg | |TR Vmax: 2.93 m/s | | | |Travel Pt: | |Authenticated by: Pricilla Wahl | |Report [...] [facility] | [address] | [place] [address] | | + + + + + [...] + + + + | Calculated P In[place] | 12 | degrees | [facility] EKG | + + + + + | Calculated R In[place] | -49 | degrees | [facility] EKG | + + + + + | Calculated T In[place] | -7 | degrees | [facility] EKG | + + + + + | Diagnosis | Please refer to | | [facility] EKG | | | Providers office visit | | | | | note for Providers | | | | | Interpretation.Confirmed | | | | | by [facility] [place] Read Only, | | | | | [facility] Brandie ([id number]), | | | | | news assignment editor Torsten Garcia | | | | | (253) on 08/30/2018 | | | | | 10:52:25 AM | | | + + + + + + + + + + | Performing | Address | City/State/Zipcode | Phone Number | | Organization | | | | + + + + + | [facility] EKG | [address] | [place] [address] | | + + + + + [...]
--- OUTSIDE RECORDS SUMMARY | ~2018-09-27 | XMS | Encounter Summary ---
Demographics + + + | Address | [address] | | | [place] [address] | + + + | Home Phone | | + + + | Preferred Language | Unknown | + + + | Marital Status | | + + + | Yazdanism Affiliation | PRE | + + + [...] Team Providers + +------+ + | Care Railroad Signal Technician Name | Role | Phone | + +------+ + | Christiano Wood DO | PCP | | + +------+ + Encounter Details +--------+ + + + + | Date | Type | Department | Care Team | Description | +--------+ + + + + | 03/14/ | Telephone | [facility] | Emil Parsons MD | | | 2018 | | [place] | [address] | | | | | Oculoplastics at | Blvd [place], [place] | | | | | Rachel Isabel [facility] S | [address] | | | | | [address] [facility] | [phone] | | | | | Mailcode: [address] | | | | | | [place], [place] | | | | | | [address] | | | | | | [phone] | | | +--------+ + + + [...]
--- OUTSIDE RECORDS SUMMARY | ~2018-09-27 | XMS | Encounter Summary ---
Demographics + + + | Address | [address] | | | [place] [address] | + + + | Home Phone | | + + + | Preferred Language | Unknown | + + + | Marital Status | | + + + | Adventism Affiliation | PRE | + + + | Race | White | + + + | Ethnic Group | Not or | + + + Author + + + | Author | [facility] | + + + | Organization | [facility] | + + + | Address | Unknown | + + + | Phone | Unavailable | + + + Support + + +---------+ + | Name | Relationship | Address | Phone | + + +---------+ + | Marnie Ontiveros | ECON | Unknown | | + + +---------+ + Care Team Providers + +------+ + | Care Carriage Rider Name | Role | Phone | + [...] as of this encounter Progress Notes Interface, Car Stereo Installer In - 01/23/2006 2:33 AM PDTCLINIC DATE: 04/19/2001 OTOLARYNGOLOGY CLINIC SUBJECTIVE: Mr. Ontiveros is a 71-year-old American male who about 5 years ago noted [...] had an MRI which was done in [place] and tends to show a small lesion [...] EXAMINATION: GENERAL: A very pleasant, alert 71-year-old American male in no acute distress. HEENT: Ears: [...] us. Agapito Catherine M.D. MEDARDO / JOHNNA [id number] / [id number] / [id number] / [id number] cc: [place] [address] Tom Ott M.D. [address] [place] [address] [address] [place] [address] [id number] signed by Interface, Car Stereo Installer In at 01/23/2006 2:33 AM [facility] umented in this encounter Plan of Treatment Not on filedocumented as of this encounter Visit Diagnoses Not on filedocumented in this encounter
--- OUTSIDE RECORDS SUMMARY | ~2018-09-27 | XMS | Encounter Summary ---
Demographics + + + | Address | [address] | | | [place] [address] | + + + | Home Phone [...] Team Providers + +------+ + | Care Stereoptician Name | Role | Phone | + [...] as of this encounter Progress Notes Interface, Engine Assembler In - 01/23/2006 2:33 AM PDTCLINIC DATE: 04/19/2001 OTOLARYNGOLOGY CLINIC SUBJECTIVE: Mr. Ontiveros is a 71-year-old Citizen Of [place] male who about 5 years ago noted [...] had an MRI which was done in [place] and tends to show a small lesion [...] EXAMINATION: GENERAL: A very pleasant, alert 71-year-old Citizen Of [place] male in no acute distress. HEENT: Ears: [...] us. Agapito Catherine M.D. MEDARDO / JOHNNA [id number] / [id number] / [id number] / [id number] cc: [place] [address] Tom Ott M.D. [address] [place] [address] [address] [place] [address] [id number] signed by Interface, Engine Assembler In at 01/23/2006 2:33 AM [facility]ed in this encounter Plan of Treatment Not on filedocumented as of this encounter Visit Diagnoses Not on filedocumented in this encounter
--- OUTSIDE RECORDS SUMMARY | ~2018-09-27 | XMS | Encounter Summary ---
Demographics + + + | Address | [address] | | | [place] [address] | + + + | Home Phone [...] + + + | Author | [facility] | + + + | Organization | [facility] | + + + | Address | Unknown | + + + | Phone | Unavailable | + + + Support + + +---------+ + | Name | Relationship | Address | Phone | + + +---------+ + | Marnie Ontiveros | ECON | Unknown | | + + +---------+ + Care Team Providers + +------+ + | Care Pharmacy Intern Name | Role | Phone | + [...] | | | [address] | [place], [place] | | | | | [address] | [address] | | | | | Mailcode: [address] | [phone] | | | | | [place], [place] | | | | | | [address] | | | | | | [phone] | | | +--------+ + + + [...]
--- OUTSIDE RECORDS SUMMARY | ~2018-09-27 | XMS | Encounter Summary ---
Demographics + + + | Address | [address] | | | [place] [address] | + + + | Home Phone | | + + + | Preferred Language | Unknown | + + + | Marital Status | | + + + | Shinto Affiliation | PRE | + + + | Race | White | + + + | Ethnic Group | Not or | + + + Author + + + | Author | [facility] | + + + | Organization | [facility] | + + + | Address | Unknown | + + + | Phone | Unavailable | + + + Support + + +---------+ + | Name | Relationship | Address | Phone | + + +---------+ + | Marnie Ontiveros | ECON | Unknown | | + + +---------+ + Care Team Providers + +------+ + | Care Manager Style Name | Role | Phone | + [...] | 2014 | Only | Department | [facility] | | | | | | MED GROUP [address] | | | | | | [address] | | | | | | [place] | | | | | | [address] | | | | | | | [...]
--- OUTSIDE RECORDS SUMMARY | ~2018-09-27 | XMS | Encounter Summary ---
Demographics + + + | Address | [address] | | | [place] [address] | + + + | Home Phone | | + + + | Preferred Language | Unknown | + + + | Marital Status | | + + + | Advent Affiliation | Unknown | + + + | Race | Unknown | + + + | Ethnic Group | Unknown | + + + Author + + + | Author | [facility] | + + + | Organization | [facility] [employer] [facility] | + + + | Address | Unknown | + + + | Phone | Unavailable | + + + Support + + + + + | Name | Relationship | Address | Phone | + + + + + | Marcial Ontiveros | ECON | [address] | | | | | [place], | | | | | [place] [address] | | + + + + + Care Team Providers + +------+ + | Care Gas Fitter Apprentice Name | Role | Phone | + [...] [place] | | | | | | [facility] [place] | | | | | | [address] | | | | | | [phone] | | | +--------+ + + + [...] [place] | | | | | | [address] | | | | | | | | +--------+---------+ + + + as of this encounter Visit Diagnoses Not on filein this encounter"
--- OUTSIDE RECORDS SUMMARY | ~2018-09-27 | XMS | Encounter Summary ---
Demographics + + + | Address | [address] | | | [place] [address] | + + + | Home Phone [...] Providers + +------+ + | Care Oil Mixer Name | Role | Phone | + [...] | 2014 | Only | Department | [facility] | | | | | | MED GROUP [address] | | | | | | [address] | | | | | | [place] | | | | | | [address] | | | | | | | [...]
--- OUTSIDE RECORDS SUMMARY | ~2018-09-27 | XMS | Encounter Summary ---
Demographics + + + | Address | [address] | | | [place] [address] | + + + | Home Phone | | + + + | Preferred Language | Unknown | + + + | Marital Status | | + + + | Judaism Affiliation | PRE | + + + | Race | White | + + + | Ethnic Group | Not or | + + + Author + + + | Author | [facility] | + + + | Organization | [facility] | + + + | Address | Unknown | + + + | Phone | Unavailable | + + + Support + + +---------+ + | Name | Relationship | Address | Phone | + + +---------+ + | Marnie Ontiveros | ECON | Unknown | | + + +---------+ + Care Team Providers + +------+ + | Care Certified Meeting Professional Name | Role | Phone | + [...] | [address] | STRAP MACHINE OPERATOR [address] | | | | | [facility] | [address] | | | | | [facility], | [place], [place] | | | | | [place] [address] | [address] | | | | | | [phone] | | | | | | | [...]
--- OUTSIDE RECORDS SUMMARY | ~2018-09-27 | XMS | Encounter Summary ---
Demographics + + + | Address | [address] | | | [place] [address] | + + + | Home Phone | | + + + | Preferred Language | Unknown | + + + | Marital Status | | + + + | Sikh Affiliation | PRE | + + + | Race | White | + + + | Ethnic Group | Not or | + + + Author + + + | Author | [facility] | + + + | Organization | [facility] | + + + | Address | Unknown | + + + | Phone | Unavailable | + + + Support + + +---------+ + | Name | Relationship | Address | Phone | + + +---------+ + | Marnie Ontiveros | ECON | Unknown | | + + +---------+ + Care Team Providers + +------+ + | Care Explosion Welder Name | Role | Phone | + [...] | | | | | n | [facility] Mailcode: | | | | | | [address] [place], [place] | | | | | | [address] | | | | | | [phone] | | | +--------+ + + + [...]
--- OUTSIDE RECORDS SUMMARY | ~2018-09-27 | XMS | Encounter Summary ---
Demographics + + + | Address | [address] | | | [place] [address] | + + + | Home Phone | | + + + | Preferred Language | Unknown | + + + | Marital Status | | + + + | Jainism Affiliation | Unknown | + + + | Race | Unknown | + + + | Ethnic Group | Unknown | + + + Author + + + | Author | [facility] | + + + | Organization | [facility] | + + + | Address | Unknown | + + + | Phone | Unavailable | + + + Support + + + + + | Name | Relationship | Address | Phone | + + + + + | Marcial Ontiveros | ECON | [address] | | | | | [place], | | | | | [place] [address] | | + + + + + Care Team Providers + +------+ + | Care Plate Straightener Name | Role | Phone | + [...] | 2019 | on Only | [facility] [place] | RT | Monitor (end of | | | | [address] | | study) | | | | [place], [place] | | | | | | [address] | | | | | | [phone] | | | +--------+ + + + [...] this repres ents a 0.09% burden. Also, 01211 PVCs were recorded; this represents a 21% [...] [place] | | | | | | [address] | | | | | | | | +--------+---------+ + + + as of this encounter Visit Diagnoses + + | Diagnosis | + + | Other specified heart block - Primary | + +"
--- OUTSIDE RECORDS SUMMARY | ~2018-09-27 | XMS | Encounter Summary ---
Demographics + + + | Address | [address] | | | [place] [address] | + + + | Home Phone [...] + + + | Author | [facility] | + + + | Organization | [facility] | + + + | Address | Unknown | + + + | Phone | Unavailable | + + + Support + + +---------+ + | Name | Relationship | Address | Phone | + + +---------+ + | Marnie Ontiveros | ECON | Unknown | | + + +---------+ + Care Team Providers + +------+ + | Care Dermatologist Name | Role | Phone | + [...] + + | 03/09/ | Hospital | [facility] | Emil Parsons MD | | | 2018 | Encounter | [address] | [address] | | | | | [address] | [address] [place], [place] | | | | | [facility] | [address] | | | | | Rachel Jain | [phone] | | | | | [place] [id number] | | | | | | [phone] | | | +--------+ + + + [...] and holidays, call and ask t he skoog patching machine operator to page the [facility] electrical power station technician. documented in this encounter Medications at Time [...] | 1 | 03/09/20 | | | [id number] | eyelid incisions | | | 18 [...] | | well. Emil A. Parsons, M.D. Train Brake Operator Ophthalmic | | | Facial Plastic [...] [facility] | [address] | [place], [place] | | | [address] | [facility] | [address] | | | TESTS | | | [...] REDDY | [address] | [place], [place] | | | NADER JAIN OF CARE | [address] | [address] | | | TESTS | | | [...]
--- OUTSIDE RECORDS SUMMARY | ~2018-09-27 | XMS | Encounter Summary ---
Demographics + + + | Address | [address] | | | [place] [address] | + + + | Home Phone | | + + + | Preferred Language | Unknown | + + + | Marital Status | | + + + | Sabianist Affiliation | Unknown | + + + | Race | Unknown | + + + | Ethnic Group | Unknown | + + + Author + + + | Author | [facility] | + + + | Organization | [facility] [employer] [facility] | + + + | Address | Unknown | + + + | Phone | Unavailable | + + + Support + + + + + | Name | Relationship | Address | Phone | + + + + + | Marcial Ontiveros | ECON | [address] | | | | | [place], | | | | | [place] [address] | | + + + + + Care Team Providers + +------+ + | Care Bench Jeweler Name | Role | Phone | + +------+ + | Christiano Wood DO | PCP | | + +------+ + Encounter Details +--------+ + + + + | Date | Type | Department | Care Team | Description | +--------+ + + + + | 09/19/ | Ancillary | [facility] | Pricilla Wahl DO | Abnormal EKG; Chest | | 2018 | Procedure | ECHO | [address] | pain, unspecified | | | | | [place] | type | | | | | [address] | | | | | | | [...] [place] | | | | | | [address] | | | | | | | | +--------+---------+ + + + as of this encounter Procedures [...] Abisai Ontiveros Date of : 1930 | [place] | | Performing Physician: Pricilla Wahl | [...] | cm TAPSE: 2.88 cm AR Dec [place]: 1.96 m/s2 AR Dec Time: | | [...] MV A Fabrice: 0.94 m/s MV Dec [place]: 5.00 m/s2 MV DecT: | | | 206.30 ms MV E Fabrice: 1.03 m/s MV E/A Ratio: 1.09 E/E' | | | Sept: 24.55 E' Lat: 0.08 m/s E' Sept: 0.04 m/s | | | RAP: 5 mmHg RV S': 0.11 m/s RVSP: 39.44 mmHg TR | | | maxP.44 mmHg TR Vmax: 2.93 m/s Hand Tier: | | | Authenticated by: Pricilla Wahl Report Date/Time: 09-20-2018 6:28:38 | | + + + + + | Procedure Note | + + | Gino Lynch In - 09/20/2018 6:30 AM PDT Patient Name: Eva Ontiveros of | | : 1930Accession: [id number] Physician: Pricilla | | Maryuri INDICATIONS | | -Abnormal EKGCONCLUSIONS 1. This [...] mlLAESV Index (A-L): 39.34 ml/m2LAAs A2C: 27.67 [id number] A-L | | A2C: 99.44 mlLAESV MOD A2C: 98.07 mlLALs A2C: 6.53 cmLAAs A4C: 27.70 [id number] | | A-L A4C: 98.88 mlLAESV MOD A4C: 92.94 mlLALs A4C: 6.58 cmRAAs: 22.19 [id number] | | A-L: 69.90 mlRAESV MOD: 65.88 mlRALs: 5.97 cmTAPSE: 2.88 cmAR Dec [place]: 1.96 | | m/s2AR Dec Time: 1791.55 msAR maxP.52 mmHgAR PHT: 519.55 msAR Vmax: 3.51 | | m/Emi Env.Ti: 316.55 msAV maxP.02 mmHgAV meanP.97 mmHgAV Vmax: 1.32 | | m/Emi Vmean: 0.93 m/Emi VTI: 29.65 cmAVA Vmax: 2.93 cm2AVA (VTI): 3.28 [id number] | | Vmax: 0.00 cm2/m2AVAI (VTI): 0.00 cm2/m2LVOT Env.Ti: 350.46 msLVOT maxP.15 | | mmHgLVOT meanP.48 mmHgLVSI Dopp: 38.44 ml/m2LVSV Dopp: 97.25 mlLVOT Vmax: | | 1.01 m/sLVOT Vmean: 0.72 m/sLVOT VTI: 25.49 cmMV A Fabrice: 0.94 m/sMV Dec [place]: | | 5.00 m/s2MV DecT: 206.30 msMV [...] | |TAPSE: 2.88 cm | |AR Dec [place]: 1.96 m/s2 | |AR Dec Time: 1791.55 [...] A Fabrice: 0.94 m/s | |MV Dec [place]: 5.00 m/s2 | |MV DecT: 206.30 ms | |MV E Fabrice: 1.03 m/s | |MV E/A Ratio: 1.09 | |E/E' Sept: 24.55 | |E' Lat: 0.08 m/s | |E' Sept: 0.04 m/s | |RAP: 5 mmHg | |RV S': 0.11 m/s | |RVSP: 39.44 mmHg | |TR maxP.44 mmHg | |TR Vmax: 2.93 m/s | | | |Hand Tier: | |Authenticated by: Pricilla Wahl | |Report [...] | + + + + + | [facility] | [address] | [place] [address] | | + + + + + in this encounter Visit Diagnoses + + | Diagnosis | + + | Abnormal EKG | + + | Nonspecific abnormal electrocardiogram (ECG) (EKG) | + + | Chest pain, unspecified type | + +"
--- OUTSIDE RECORDS SUMMARY | ~2018-09-27 | XMS | Clinical Summary ---
Demographics + + + | Address | [address] | | | [place] [address] | + + + | Home Phone | | + + + | Preferred Language | Unknown | + + + | Marital Status | | + + + | Temple Affiliation | Unknown | + + + | Race | Unknown | + + + | Ethnic Group | Unknown | + + + Author + + + | Author | [facility] | | | and [place] | + + + | Organization | [facility] | | | and [place] | + + + | Address | Unknown | + + + | Phone | Unavailable | + + + Support + + + + + | Name | Relationship | Address | Phone | + + + + + | Marcial Ontiveros | ECON | [address] | | | | | [place], | | | | | [place] [address] | | + + + + + Care Team Providers + +------+ + | Care Recooperer Name | Role | Phone | + [...] + + + + | José: LISSY [id number] Decision | + + + + + | Mixed anxiety depressive disorder | 08/08/2011 | + + + + + | Overview: PLRU [id number] Decision | + + + + + [...] +--------+ +---------+--------+ | MEDICARE | MEDICA | [id number] | | [phone] | | Medica | | | RE | | [phone]-Pr | 5 | | re | | | PART A | | esent | | | | | | AND B | | | | | | + +--------+ +--------+ +---------+--------+ | [facility] | IHS | [id number] | 02/09/ | | | Indemn | [...] Person | Self | [birth year] | [address] | | | mauricio/Ole | | 1930 | [phone] | [employer] [facility] | | | uma | | | [address] (Home) | [place] | | | | | | | [address] | + +--------+ +--------+ + + Advance Directives Patient has advance care planning documents on file. For more information, please contact:[facility] [place] [address]
--- OUTSIDE RECORDS SUMMARY | ~2018-09-27 | XMS | Encounter Summary ---
Demographics + + + | Address | [address] | | | [place] [address] | + + + | Home Phone | | + + + | Preferred Language | Unknown | + + + | Marital Status | | + + + | Methodist Affiliation | PRE | + + + | Race | White | + + + | Ethnic Group | Not or | + + + Author + + + | Author | [facility] | + + + | Organization | [facility] | + + + | Address | Unknown | + + + | Phone | Unavailable | + + + Support + + +---------+ + | Name | Relationship | Address | Phone | + + +---------+ + | Marnie Ontiveros | ECON | Unknown | | + + +---------+ + Care Team Providers + +------+ + | Care Interactive Media Marketing Director Name | Role | Phone | [...] | | | | | n | [facility] Mailcode: | | | | | | [address] [place], [place] | | | | | | [address] | | | | | | [phone] | | | +--------+ + + + [...]
--- OUTSIDE RECORDS SUMMARY | ~2018-09-27 | XMS | Clinical Summary ---
Demographics + + + | Address | [address] | | | [place] [address] | + + + | Home Phone [...] Team Providers + +------+ + | Care Agility Instructor Name | Role | Phone | + +------+ + | Christiano Wood DO | PP | | + +------+ + Source Comments MOHIT is fully live on both [facility] Ambulatory and [facility] InPatient.[facility] Allergies + + + + + [...] | 11/0 | | Activ | | [id number] | eyelid incisions | | | 9/20 [...] | | | | | | | [address] | | + +--------+ +--------+ + +--------+ | [facility] | [facility] | xxxxxxxxx | 05/01/19 | | | [...] Person | Self | [birth year] | | [address] | | | al/Fam | | 1930 | [phone] | [address] [address] | | | uma | | | [address] (Home) | [place] [address] | + +--------+ +--------+ + + | Abisai Ontiveros | Agency | Self | [birth year] | | [address] | | | | | 1930 | [phone] | [address] | | | | | | [address] (Home) | [place] [address] | + +--------+ +--------+ + +
--- OUTSIDE RECORDS SUMMARY | ~2018-09-27 | XMS | Encounter Summary ---
Demographics + + + | Address | [address] | | | [place] [address] | + + + | Home Phone | | + + + | Preferred Language | Unknown | + + + | Marital Status | | + + + | Mormon Affiliation | Unknown | + + + | Race | Unknown | + + + | Ethnic Group | Unknown | + + + Author + + + | Author | [facility] | + + + | Organization | [facility] [employer] [facility] | + + + | Address | Unknown | + + + | Phone | Unavailable | + + + Support + + + + + | Name | Relationship | Address | Phone | + + + + + | Marcial Ontiveros | ECON | [address] | | | | | [place], | | | | | [place] [address] | | + + + + + Care Team Providers + +------+ + | Care Supervisor In Charge Name | Role | Phone | + +------+ + | Christiano Wood DO | PCP | | + +------+ + Reason for Visit +--------+ + | Reason | Comments | +--------+ + | Other | 09-19-[address] [place] | +--------+ + Encounter Details +--------+ + + + + | Date | Type | Department | Care Team | Description | +--------+ + + + + | 09/25/ | Documentati | [facility] | Suha Hargrove | Tavon (09-19-18 | | 2018 | on Only | Cardiology [facility] | AVTAR Khan | [address] | | | | [address] | | [place] ) | | | | [facility] [place] | | | | | | [address] | | | | | | [phone] | | | +--------+ + + + [...] | 12/13/ | Office | Cardiology | Wahl, Pricilla, DO | | | 2019 | Visit | | [address] | | | | | | [place] | | | | | | [address] | | | | | | | | +--------+---------+ + + + as of this encounter Visit Diagnoses Not on filein this encounter"
--- OUTSIDE RECORDS SUMMARY | ~2018-09-27 | XMS | Encounter Summary ---
Demographics + + + | Address | [address] | | | [place] [address] | + + + | Home Phone [...] + + | Author | [facility] [employer] | + + + | Organization | [facility] [employer] [facility] | + + + | Address | Unknown | + + + | Phone | Unavailable | + + + Support + + + + + | Name | Relationship | Address | Phone | + + + + + | Marcial Ontiveros | ECON | [address] | | | | | [place], | | | | | [place] [address] | | + + + + + Care Team Providers + +------+ + | Care Rail Car Maintenance Mechanic Name | Role | Phone | + [...] [place] | | | | | | [facility] [place] | | | | | | [address] | | | | | | [phone] | | | +--------+ + + + [...] [place] | | | | | | [address] | | | | | | | | +--------+---------+ + + + as of this encounter Visit Diagnoses Not on filein this encounter"
--- OUTSIDE RECORDS SUMMARY | ~2018-09-27 | XMS | Encounter Summary ---
Demographics + + + | Address | [address] | | | [place] [address] | + + + | Home Phone | | + + + | Preferred Language | Unknown | + + + | Marital Status | | + + + | Bahai Affiliation | PRE | + + + [...] Team Providers + +------+ + | Care Hospital Security Officer Name | Role | Phone | [...] | | | | | n | [facility] Mailcode: | | | | | | [address] [place], [place] | | | | | | [address] | | | | | | [phone] | | | +--------+ + + + [...]
--- OUTSIDE RECORDS SUMMARY | ~2018-09-27 | XMS | Clinical Summary ---
Demographics + + + | Address | [address] | | | [place] [address] | + + + | Home Phone | | + + + | Preferred Language | Unknown | + + + | Marital Status | | + + + | Sikhism Affiliation | Unknown | + + + | Race | Unknown | + + + | Ethnic Group | Unknown | + + + Author + + + | Author | [facility] [facility] | + + + | Organization | [facility] [employer] [facility] | + + + | Address | Unknown | + + + | Phone | Unavailable | + + + Support + + + + + | Name | Relationship | Address | Phone | + + + + + | Marcial Francis | ECON | [address] | | | | | [place], | | | | | [place] [address] | | + + + + + Care Team Providers + +------+ + | Care Cargo Inspector Name | Role | Phone | [...] + | Overview: Overview: | | PLRU [id number] Decision | + + + + + | Obstructive sleep apnea | 08/08/2011 | + + + | 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 | + + + | Depression | 2005 | + + + | Diabetic neuropathy ([facility]) | 2005 | + + + | [...] [place] | | | | | | [address] | | | | | | | [...] Hieu Francis Date of : 1930 | [facility] | | Performing Physician: Pricilla Wahl [...] | cm TAPSE: 2.88 cm AR Dec [place]: 1.96 m/s2 AR Dec Time: | | [...] MV A Fabrice: 0.94 m/s MV Dec [place]: 5.00 m/s2 MV DecT: | | | 206.30 ms MV E Fabrice: 1.03 m/s MV E/A Ratio: 1.09 E/E' | | | Sept: 24.55 E' Lat: 0.08 m/s E' Sept: 0.04 m/s | | | RAP: 5 mmHg RV S': 0.11 m/s RVSP: 39.44 mmHg TR | | | maxP.44 mmHg TR Vmax: 2.93 m/s Corporate Legal Intern: | | | Authenticated by: Pricilla Wahl Report Date/Time: 09-20-2018 6:28:38 | | + + + + + | Procedure Note | + + | Syed, Rad Results In - 09/20/2018 6:30 AM PDT Patient Name: Eva Francis of | | : 1930Accession: [id number] Physician: Pricilla | | Frye INDICATIONS | [...] mlLAESV Index (A-L): 39.34 ml/m2LAAs A2C: 27.67 [id number] A-L | | A2C: 99.44 mlLAESV MOD A2C: 98.07 mlLALs A2C: 6.53 cmLAAs A4C: 27.70 [id number] | | A-L A4C: 98.88 mlLAESV MOD A4C: 92.94 mlLALs A4C: 6.58 cmRAAs: 22.19 [id number] | | A-L: 69.90 mlRAESV MOD: 65.88 mlRALs: 5.97 cmTAPSE: 2.88 cmAR Dec [place]: 1.96 | | m/s2AR Dec Time: 1791.55 msAR maxP.52 mmHgAR PHT: 519.55 msAR Vmax: 3.51 | | m/Emi Env.Ti: 316.55 msAV maxP.02 mmHgAV meanP.97 mmHgAV Vmax: 1.32 | | m/Emi Vmean: 0.93 m/Emi VTI: 29.65 cmAVA Vmax: 2.93 cm2AVA (VTI): 3.28 [id number] | | Vmax: 0.00 cm2/m2AVAI (VTI): 0.00 cm2/m2LVOT Env.Ti: 350.46 msLVOT maxP.15 | | mmHgLVOT meanP.48 mmHgLVSI Dopp: 38.44 ml/m2LVSV Dopp: 97.25 mlLVOT Vmax: | | 1.01 m/sLVOT Vmean: 0.72 m/sLVOT VTI: 25.49 cmMV A Fabrice: 0.94 m/sMV Dec [place]: | | 5.00 m/s2MV DecT: 206.30 msMV [...] | |TAPSE: 2.88 cm | |AR Dec [place]: 1.96 m/s2 | |AR Dec Time: 1791.55 [...] A Fabrice: 0.94 m/s | |MV Dec [place]: 5.00 m/s2 | |MV DecT: 206.30 ms | |MV E Fabrice: 1.03 m/s | |MV E/A Ratio: 1.09 | |E/E' Sept: 24.55 | |E' Lat: 0.08 m/s | |E' Sept: 0.04 m/s | |RAP: 5 mmHg | |RV S': 0.11 m/s | |RVSP: 39.44 mmHg | |TR maxP.44 mmHg | |TR Vmax: 2.93 m/s | | | |Corporate Legal Intern: | |Authenticated by: Pricilla Wahl | |Report [...] [facility] | [address] | [facility] [address] | | + + + + + [...] + + + + | Calculated P Star | 12 | degrees | [facility] EKG | + + + + + | Calculated R Star | -49 | degrees | [facility] EKG | + + + + + | Calculated T Star | -7 | degrees | [facility] EKG | + + + + + | Diagnosis | Please refer to | | [facility] EKG | | | Providers office visit | | | | | note for Providers | | | | | Interpretation.Confirmed | | | | | by [facility] Read Only, | | | | | [facility] Brandie ([id number]), | | | | | editor in chief Torsten Garcia | | | | | ([id number]) on 08/30/2018 | | | | | 10:52:25 AM | | | + + + + + + + + + + | Performing | Address | City/State/Zipcode | Phone Number | | Organization | | | | + + + + + | [facility] | [address] | [place] [address] | | + + + + + [...] +------+-------+ + | MEDICARE | MEDICA | [id number] | | | [address] | | | RE | | | | [place] [address] | | | IP-OP | | | | | + +--------+ +------+-------+ + | /[facility] | YELLOW | [id number] | | | | | PLANS | [...] | Self | [birth year] Home: | [address] | | | al/Fam | | 1930 | [phone] [address] | | | uma | | | [phone] | [place], [place] | | | | | | | [address] | + +--------+ +--------+ + +
--- OUTSIDE RECORDS SUMMARY | ~2018-09-27 | XMS | Encounter Summary ---
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 | [phone] | | | | | [place], [place] | | | | | | [address] | | | | | | [phone] | | | +--------+---------+ + + + [...] I have reviewed and edited history and remote sensing technician documentation, and performed all elements to above examination documentation. Emil Parsons M.D. [employer] Ophthalmic Facial Plastic and Reconstructive Surgery documented in this encounter Plan of Treatment Not on filedocumented as of this encounter Procedures + +--------+ + + + | Procedure Name | Priori | Date/Time | Associated Diagnosis | Comments | | | ty | | | | + +--------+ + + + | OH EXTERNAL PHOTOS | Routin | 01/16/2018 | [...]
--- OUTSIDE RECORDS SUMMARY | ~2018-09-27 | XMS | Encounter Summary ---
Demographics + + + | Address | [address] | | | [place] [address] | + + + | Home Phone | | + + + | Preferred Language | Unknown | + + + | Marital Status | | + + + | Lutheran Affiliation | Unknown | + + + | Race | Unknown | + + + | Ethnic Group | Unknown | + + + Author + + + | Author | [facility] | + + + | Organization | [facility] [employer] [facility] | + + + | Address | Unknown | + + + | Phone | Unavailable | + + + Support + + + + + | Name | Relationship | Address | Phone | + + + + + | Marcial Ontiveros | ECON | [address] | | | | | [place], | | | | | [place] [address] | | + + + + + Care Team Providers + +------+ + | Care Home Child Care Provider Name | Role | Phone | + [...] | Diego ) | | | | [facility] [place] | | | | | | [address] | | | | | | [phone] | | | +--------+ + + + [...] [place] | | | | | | [address] | | | | | | | | +--------+---------+ + + + as of this encounter Visit Diagnoses Not on filein this encounter"
--- OUTSIDE RECORDS SUMMARY | ~2018-09-27 | XMS | Encounter Summary ---
Demographics + + + | Address | [address] | | | [place] [address] | + + + | Home Phone | | + + + | Preferred Language | Unknown | + + + | Marital Status | | + + + | Amish Affiliation | PRE | + + + [...] Team Providers + +------+ + | Care Licensed Prosthetist/Orthotist Name | Role | Phone | + [...] | | [facility] | [address] [facility] [place] | BILATERAL UPPER LID | | | | [facility], | [address] | BLEPHAROPLASTY (CO2 | | | | [place] [address] | [phone] | LASER) | | | | | [...] and holidays, call and ask t he dry press operator helper to page the Eye Doctor transverse abdominal muscle surgeon. documented in this encounter Medications at Time [...] | 1 | 03/09/20 | | | ofocrlcc-pepralvro-m | eyelid incisions | | | 18 [...] | | | well. Emil Parsons M.D. Hybrid Derivatives Trader Ophthalmic | | | Facial Plastic and [...] HILDAAM | [address] | [place], [place] | | | NADER JAIN OF [place] | [address] | [address] | | | TESTS | | | [...] REDDY | [address] | [place], [place] | | | NADER JAIN OF [place]EVON | [facility] | [address] | | | TESTS | | | [...] 1 strip | | Surgical | | uhecghnh-tuhodingc-mujsdybzumbvz | | 18 11:26 | | | [...] 11:27 | | | Eyes | | 1%-1:955207 - bupivacaine 0.5% | | AM PST [...]
--- OUTSIDE RECORDS SUMMARY | ~2018-09-27 | XMS | Encounter Summary ---
Demographics + + + | Address | [address] | | | [place] [address] | + + + | Home Phone | | + + + | Preferred Language | Unknown | + + + | Marital Status | | + + + | Nondenominational Affiliation | Unknown | + + + | Race | Unknown | + + + | Ethnic Group | Unknown | + + + Author + + + | Author | [facility] | + + + | Organization | [facility] [employer] [facility] | + + + | Address | Unknown | + + + | Phone | Unavailable | + + + Support + + + + + | Name | Relationship | Address | Phone | + + + + + | Marcial Ontiveros | ECON | [address] | | | | | [place], | | | | | [place] [address] | | + + + + + Care Team Providers + +------+ + | Care Traveling Phlebotomist Name | Role | Phone | + [...] | type | | | | | [phone] | | | | | | | [...] [place] | | | | | | [address] | | | | | | | [...] | cm TAPSE: 2.88 cm AR Dec Blackford: 1.96 m/s2 AR Dec Time: | | [...] MV A Fabrice: 0.94 m/s MV Dec Blackford: 5.00 m/s2 MV DecT: | | | 206.30 ms MV E Fabrice: 1.03 m/s MV E/A Ratio: 1.09 E/E' | | | Sept: 24.55 E' Lat: 0.08 m/s E' Sept: 0.04 m/s | | | RAP: 5 mmHg RV S': 0.11 m/s RVSP: 39.44 mmHg TR | | | maxP.44 mmHg TR Vmax: 2.93 m/s Beef Ribber: | | | Authenticated by: Pricilla Wahl Report Date/Time: 09-20-2018 6:28:38 | | + + + + + | Procedure Note | + + | Gino Lynch In - 09/20/2018 6:30 AM PDT Patient Name: Eva Ontiveros of | | : 1930Accession: [id number] Physician: Pricilla | | Maryuri INDICATIONS | [...] mlLAESV Index (A-L): 39.34 ml/m2LAAs A2C: 27.67 [id number] A-L | | A2C: 99.44 mlLAESV MOD A2C: 98.07 mlLALs A2C: 6.53 cmLAAs A4C: 27.70 [id number] | | A-L A4C: 98.88 mlLAESV MOD A4C: 92.94 mlLALs A4C: 6.58 cmRAAs: 22.19 [id number] | | A-L: 69.90 mlRAESV MOD: 65.88 mlRALs: 5.97 cmTAPSE: 2.88 cmAR Dec Blackford: 1.96 | | m/s2AR Dec Time: 1791.55 msAR maxP.52 mmHgAR PHT: 519.55 msAR Vmax: 3.51 | | m/Emi Env.Ti: 316.55 msAV maxP.02 mmHgAV meanP.97 mmHgAV Vmax: 1.32 | | m/Emi Vmean: 0.93 m/Emi VTI: 29.65 cmAVA Vmax: 2.93 cm2AVA (VTI): 3.28 [id number] | | Vmax: 0.00 cm2/m2AVAI (VTI): 0.00 cm2/m2LVOT Env.Ti: 350.46 msLVOT maxP.15 | | mmHgLVOT meanP.48 mmHgLVSI Dopp: 38.44 ml/m2LVSV Dopp: 97.25 mlLVOT Vmax: | | 1.01 m/sLVOT Vmean: 0.72 m/sLVOT VTI: 25.49 cmMV A Fabrice: 0.94 m/sMV Dec Blackford: | | 5.00 m/s2MV DecT: 206.30 msMV [...] | |TAPSE: 2.88 cm | |AR Dec Blackford: 1.96 m/s2 | |AR Dec Time: 1791.55 [...] A Fabrice: 0.94 m/s | |MV Dec Blackford: 5.00 m/s2 | |MV DecT: 206.30 ms | |MV E Fabrice: 1.03 m/s | |MV E/A Ratio: 1.09 | |E/E' Sept: 24.55 | |E' Lat: 0.08 m/s | |E' Sept: 0.04 m/s | |RAP: 5 mmHg | |RV S': 0.11 m/s | |RVSP: 39.44 mmHg | |TR maxP.44 mmHg | |TR Vmax: 2.93 m/s | | | |Beef Ribber: | |Authenticated by: Pricilla Wahl | |Report [...] | + + + + + | [facility] | [address] | [place] [address] | | + + + + + in this encounter Visit Diagnoses + + | Diagnosis | + + | Abnormal EKG | + + | Nonspecific abnormal electrocardiogram (ECG) (EKG) | + + | Chest pain, unspecified type | + +"
--- OUTSIDE RECORDS SUMMARY | ~2018-09-27 | XMS | Encounter Summary ---
Demographics + + + | Address | [address] | | | [place] [address] | + + + | Home Phone [...] + + + | Author | [facility] | + + + | Organization | [facility] | + + + | Address | Unknown | + + + | Phone | Unavailable | + + + Support + + +---------+ + | Name | Relationship | Address | Phone | + + +---------+ + | Marnie Ontiveros | ECON | Unknown | | + + +---------+ + Care Team Providers + +------+ + | Care Trade Economist Name | Role | Phone | + [...] testing | | 2018 | on | [place] | [address] | | | | | Oculoplastics at | Blvd [place], [place] | | | | | [address] | [address] | | | | | [address] | [phone] | | | | | Mailcode: [facility] | | | | | | [place], [place] | | | | | | [address] | | | | | | [phone] | | | +--------+ + + + [...]
--- OUTSIDE RECORDS SUMMARY | ~2018-09-27 | XMS | Encounter Summary ---
Demographics + + + | Address | [address] | | | [place] [address] | + + + | Home Phone | | + + + | Preferred Language | Unknown | + + + | Marital Status | | + + + | Tenriism Affiliation | PRE | + + + | Race | White | + + + | Ethnic Group | Not or | + + + Author + + + | Author | [facility] | + + + | Organization | [facility] | + + + | Address | Unknown | + + + | Phone | Unavailable | + + + Support + + +---------+ + | Name | Relationship | Address | Phone | + + +---------+ + | Marnie Ontiveros | ECON | Unknown | | + + +---------+ + Care Team Providers + +------+ + | Care Therapy Director Name | Role | Phone | [...] | | [facility] | Blvd [facility] [place] | BILATERAL UPPER LID | | | | [facility], | [address] | BLEPHAROPLASTY (CO2 | | | | [place] [address] | [phone] | LASER) | | | | | [...] and holidays, call and ask t he control area operator to page the Eye Doctor telephone installer. documented in this encounter Medications at Time [...] | 1 | 03/09/20 | | | myjkkxqh-tdskgvdjf-q | eyelid incisions | | | 18 [...] | | | well. Emil Parsons M.D. Towel Folder Ophthalmic | | | Facial Plastic and [...] HILDAAM | [address] | [place], [place] | | | NADER JAIN OF [place]EVON | [address] | [address] | | | TESTS | | | [...] REDDY | [address] | [place], [place] | | | NAD[place] JAIN [place] | [facility] | [address] | | | TESTS | | | [...] 1 strip | | Surgical | | iosuvljx-lkzyfzwin-isopqoiebcjiy | | 18 11:26 | | | [...] 11:27 | | | Eyes | | 1%-1:354361 - bupivacaine 0.5% | | AM PST [...]
--- OUTSIDE RECORDS SUMMARY | ~2018-09-27 | XMS | Encounter Summary ---
Demographics + + + | Address | [address] | | | [place] [address] | + + + | Home Phone | | + + + | Preferred Language | Unknown | + + + | Marital Status | | + + + | Jewish Affiliation | PRE | + + + | Race | White | + + + | Ethnic Group | Not or | + + + Author + + + | Author | [facility] | + + + | Organization | [facility] | + + + | Address | Unknown | + + + | Phone | Unavailable | + + + Support + + +---------+ + | Name | Relationship | Address | Phone | + + +---------+ + | Marnie Ontiveros | ECON | Unknown | | + + +---------+ + Care Team Providers + +------+ + | Care Visual Aid Expert Name | Role | Phone | + +------+ + | No Pcp Per Patient | PCP | Unavailable | + +------+ + Encounter Details +--------+ + + + + | Date | Type | Department | Care Team | Description | +--------+ + + + + | 01/09/ | Abstract | [facility] | Emil Parsons MD | | | 2018 | | [place] | [address] | | | | | Oculoplastics at | Blvd [place], [place] | | | | | Rachel Isabel [facility] S | [address] | | | | | [address] [facility] | [phone] | | | | | Mailcode: [facility] | | | | | | [place], [place] | | | | | | [address] | | | | | | [phone] | | | +--------+ + + + [...]
--- OUTSIDE RECORDS SUMMARY | ~2018-09-27 | XMS | Clinical Summary ---
Demographics + + + | Address | [address] | | | [place] [address] | + + + | Home Phone | | + + + | Preferred Language | Unknown | + + + | Marital Status | | + + + | Bahai Affiliation | Unknown | + + + | Race | Unknown | + + + | Ethnic Group | Unknown | + + + Author + + + | Author | [facility] | + + + | Organization | [facility] | + + + | Address | Unknown | + + + | Phone | Unavailable | + + + Support + + + + + | Name | Relationship | Address | Phone | + + + + + | Marcial Francis | ECON | [address] | | | | | [place], | | | | | [place] [address] | | + + + + + Care Team Providers + +------+ + | Care Education Liaison Name | Role | Phone | + [...] + | Overview: Overview: | | PLRU [id number] Decision | + + + + + | Obstructive sleep apnea | 08/08/2011 | + + + | 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 | + + + | Depression | 2005 | + + + | Diabetic neuropathy ([facility]) | 2005 | + + + | [...] St | | | | | | [place] ) | +--------+ + + + + [...] [place] | | | | | | [address] | | | | | | | [...] Hieu Francis Date of : 1930 | [facility] | | Performing Physician: Pricilla Wahl [...] | cm TAPSE: 2.88 cm AR Dec Ellsworth: 1.96 m/s2 AR Dec Time: | | [...] MV A Fabrice: 0.94 m/s MV Dec Ellsworth: 5.00 m/s2 MV DecT: | | | 206.30 ms MV E Fabrice: 1.03 m/s MV E/A Ratio: 1.09 E/E' | | | Sept: 24.55 E' Lat: 0.08 m/s E' Sept: 0.04 m/s | | | RAP: 5 mmHg RV S': 0.11 m/s RVSP: 39.44 mmHg TR | | | maxP.44 mmHg TR Vmax: 2.93 m/s Pocket Builder: | | | Authenticated by: Pricilla Wahl Report Date/Time: 09-20-2018 6:28:38 | | + + + + + | Procedure Note | + + | Syed, Rad Results In - 09/20/2018 6:30 AM PDT Patient Name: Eva Francis of | | : 1930Accession: [id number] Physician: Pricilla | | Frye INDICATIONS | [...] mlLAESV Index (A-L): 39.34 ml/m2LAAs A2C: 27.67 [id number] A-L | | A2C: 99.44 mlLAESV MOD A2C: 98.07 mlLALs A2C: 6.53 cmLAAs A4C: 27.70 [id number] | | A-L A4C: 98.88 mlLAESV MOD A4C: 92.94 mlLALs A4C: 6.58 cmRAAs: 22.19 [id number] | | A-L: 69.90 mlRAESV MOD: 65.88 mlRALs: 5.97 cmTAPSE: 2.88 cmAR Dec Ellsworth: 1.96 | | m/s2AR Dec Time: 1791.55 msAR maxP.52 mmHgAR PHT: 519.55 msAR Vmax: 3.51 | | m/Emi Env.Ti: 316.55 msAV maxP.02 mmHgAV meanP.97 mmHgAV Vmax: 1.32 | | m/Emi Vmean: 0.93 m/Emi VTI: 29.65 cmAVA Vmax: 2.93 cm2AVA (VTI): 3.28 [id number] | | Vmax: 0.00 cm2/m2AVAI (VTI): 0.00 cm2/m2LVOT Env.Ti: 350.46 msLVOT maxP.15 | | mmHgLVOT meanP.48 mmHgLVSI Dopp: 38.44 ml/m2LVSV Dopp: 97.25 mlLVOT Vmax: | | 1.01 m/sLVOT Vmean: 0.72 m/sLVOT VTI: 25.49 cmMV A Fabrice: 0.94 m/sMV Dec Ellsworth: | | 5.00 m/s2MV DecT: 206.30 msMV [...] | |TAPSE: 2.88 cm | |AR Dec Ellsworth: 1.96 m/s2 | |AR Dec Time: 1791.55 [...] A Fabrice: 0.94 m/s | |MV Dec Ellsworth: 5.00 m/s2 | |MV DecT: 206.30 ms | |MV E Fabrice: 1.03 m/s | |MV E/A Ratio: 1.09 | |E/E' Sept: 24.55 | |E' Lat: 0.08 m/s | |E' Sept: 0.04 m/s | |RAP: 5 mmHg | |RV S': 0.11 m/s | |RVSP: 39.44 mmHg | |TR maxP.44 mmHg | |TR Vmax: 2.93 m/s | | | |Pocket Builder: | |Authenticated by: Pricilla Wahl | |Report [...] [facility] | [address] | [facility] [address] | | + + + + + [...] + + + + | Calculated P [place] | 12 | degrees | [facility] | + + + + + | Calculated R [place] | -49 | degrees | [facility] EKG | + + + + + | Calculated T [place] | -7 | degrees | [facility] EKG | + + + + + | Diagnosis | Please refer to | | [facility] EKG | | | Providers office visit | | | | | note for Providers | | | | | Interpretation.Confirmed | | | | | by [facility] Read Only, | | | | | ICA Brandie ([id number]), | | | | | avid editor Torsten Garcia | | | | | ([id number]) on 08/30/2018 | | | | | 10:52:25 AM | | | + + + + + + + + + + | Performing | Address | City/State/Zipcode | Phone Number | | Organization | | | | + + + + + | [facility] | [address] | [place] [address] | | + + + + + [...] +------+-------+ + | MEDICARE | MEDICA | [id number] | | | [address] | | | RE | | | | [place] [address] | | | IP-OP | | | | | + +--------+ +------+-------+ + | /[facility] | YELLOW | [id number] | | | | | PLANS | [...] | Self [birth year] Home: | [address] | | | al/Fam | | 1930 | [phone] | [address] | | | uma | | | [phone] | [place], [place] | | | | | | | [address] | + +--------+ +--------+ + +
--- OUTSIDE RECORDS SUMMARY | ~2018-09-27 | XMS | Encounter Summary ---
Demographics + + + | Address | [address] | | | [place] [address] | + + + | Home Phone | | + + + | Preferred Language | Unknown | + + + | Marital Status | | + + + | Worship Affiliation | PRE | + + + | Race | White | + + + | Ethnic Group | Not or | + + + Author + + + | Author | [facility] | + + + | Organization | [facility] | + + + | Address | Unknown | + + + | Phone | Unavailable | + + + Support + + +---------+ + | Name | Relationship | Address | Phone | + + +---------+ + | Marnie Ontiveros | ECON | Unknown | | + + +---------+ + Care Team Providers + +------+ + | Care Pc Analyst Name | Role | Phone | + +------+ + | Christiano Wood DO | PCP | | + +------+ + Encounter Details +--------+ + + + + | Date | Type | Department | Care Team | Description | +--------+ + + + + | 03/10/ | Telephone | [facility] | Emil Parsons MD | | | 2018 | | [place] | [address] | | | | | Oculoplastics at | Blvd [place], [place] | | | | | Rachel Isabel [facility] S | [address] | | | | | [address] [facility] | [phone] | | | | | Mailcode: [address] | | | | | | [place], [place] | | | | | | [address] | | | | | | [phone] | | | +--------+ + + + [...]
--- OUTSIDE RECORDS SUMMARY | ~2018-09-27 | XMS | Encounter Summary ---
Demographics + + + | Address | [address] | | | [place] [address] | + + + | Home Phone | | + + + | Preferred Language | Unknown | + + + | Marital Status | | + + + | Hinduism Affiliation | Unknown | + + + | Race | Unknown | + + + | Ethnic Group | Unknown | + + + Author + + + | Author | [facility] | + + + | Organization | [facility] | + + + | Address | Unknown | + + + | Phone | Unavailable | + + + Support + + + + + | Name | Relationship | Address | Phone | + + + + + | Marcial Ontiveros | ECON | [address] | | | | | [place], | | | | | [place] [address] | | + + + + + Care Team Providers + +------+ + | Care Sales Representative Groceries Name | Role | Phone | + [...] | [place] ) | | | | [facility] [place] | | | | | | [address] | | | | | | [phone] | | | +--------+ + + + [...] [place] | | | | | | [address] | | | | | | | | +--------+---------+ + + + as of this encounter Visit Diagnoses Not on filein this encounter"
--- OUTSIDE RECORDS SUMMARY | ~2018-09-27 | XMS | Encounter Summary ---
Demographics + + + | Address | [address] | | | [place] [address] | + + + | Home Phone | | + + + | Preferred Language | Unknown | + + + | Marital Status | | + + + | Pentecostal Affiliation | PRE | + + + [...] Team Providers + +------+ + | Care Criminal Researcher Name | Role | Phone | + [...] + + | 03/09/ | Hospital | [facility] | Emil Parsons MD | | | 2018 | Encounter | [address] | [address] | | | | | [address] | Blvd [place], [place] | | | | | [facility] | [address] | | | | | Rachel Jain | [phone] | | | | | [place] [id number] | | | | | | [phone] | | | +--------+ + + + [...] and holidays, call and ask t he traveling operator to page the Eye Doctor food production manager. documented in this encounter Medications at Time [...] | 1 | 03/09/20 | | | rejjvsln-qyxdobyej-j | eyelid incisions | | | 18 [...] | | well. Emil A. Parsons, M.D. Country Printer Apprentice Ophthalmic | | | Facial Plastic and [...] [place] | [address] | [place], [place] | | | [address] [place] [address] [place] | [facility] | [address] | | | TESTS | | | [...] REDDY | [address] | [place], [place] | | | NADER JAIN OF CARE | [address] | [address] | | | TESTS | | | [...]
--- OUTSIDE RECORDS SUMMARY | ~2018-09-27 | XMS | Encounter Summary ---
Demographics + + + | Address | [address] | | | [place] [address] | + + + | Home Phone | | + + + | Preferred Language | Unknown | + + + | Marital Status | | + + + | Taoism Affiliation | PRE | + + + | Race | White | + + + | Ethnic Group | Not or | + + + Author + + + | Author | [facility] | + + + | Organization | [facility] | + + + | Address | Unknown | + + + | Phone | Unavailable | + + + Support + + +---------+ + | Name | Relationship | Address | Phone | + + +---------+ + | Marnie Ontiveros | ECON | Unknown | | + + +---------+ + Care Team Providers + +------+ + | Care Paediatric Thoracic Physician Name | Role | Phone | + +------+ + | Christiano Wood DO | PCP | | + +------+ + Encounter Details +--------+---------+ + + + | Date | Type | Department | Care Team | Description | +--------+---------+ + + + | 01/16/ | Office | [facility] | Emil Parsons MD | Brow ptosis (Primary | | 2018 | Visit | [facility] | [address] | Dx); | | | | [address] | [place], [place] | Dermatochalasis of | | | | [facility] | [address] | both upper eyelids | | | | [facility] | [phone] | | | | | [place], [place] | | | | | | [address] | | | | | | [phone] | | | +--------+---------+ + + + [...] I have reviewed and edited history and life science technician documentation, and performed all elements to above examination documentation. Emil Parsons M.D. Wheat And Oats Flake Miller Ophthalmic Facial Plastic and Reconstructive Surgery documented in this encounter Plan of Treatment Not on filedocumented as of this encounter Procedures + +--------+ + + + | Procedure Name | Priori | Date/Time | Associated Diagnosis | Comments | | | ty | | | | + +--------+ + + + | UT EXTERNAL PHOTOS | Routin | 01/16/2018 | [...]
--- OUTSIDE RECORDS SUMMARY | ~2018-09-27 | XMS | Clinical Summary ---
Demographics + + + | Address | [address] | | | [place] [address] | + + + | Home Phone | | + + + | Preferred Language | Unknown | + + + | Marital Status | | + + + | Gnosticist Affiliation | Unknown | + + + | Race | Unknown | + + + | Ethnic Group | Unknown | + + + Author + + + | Author | [facility] | | | and [place] | + + + | Organization | [facility] | | | and [place] | + + + | Address | Unknown | + + + | Phone | Unavailable | + + + Support + + + + + | Name | Relationship | Address | Phone | + + + + + | Marcial Ontiveros | ECON | [address] | | | | | [place], | | | | | [place] [address] | | + + + + + Care Team Providers + +------+ + | Care Core Maker Helper Name | Role | Phone | [...] + + + + | José: LISSY [id number] Decision | + + + + + | Mixed anxiety depressive disorder | 08/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 | + + + + + | Overview: PLRU [id number] Decision | + + + + + [...] +--------+ +---------+--------+ | MEDICARE | MEDICA | [id number] | | [phone] | | Medica | | | RE | | [phone]-Pr | 5 | | re | | | PART A | | esent | | | | | | AND B | | | | | | + +--------+ +--------+ +---------+--------+ | [facility] | IHS | [id number] | 02/09/ | | | Indemn | [...] Person | Self | [birth year] | [address] | | | mauricio/Ole | | 1930 | [phone] | [address] | | | uma | | | [address] (Home) | [place] | | | | | | | [address] | + +--------+ +--------+ + + Advance Directives Patient has advance care planning documents on file. For more information, please contact:[facility] [place] [address]
--- OUTSIDE RECORDS SUMMARY | ~2018-09-27 | XMS | Encounter Summary ---
Demographics + + + | Address | [address] | | | [place] [address] | + + + | Home Phone | | + + + | Preferred Language | Unknown | + + + | Marital Status | | + + + | Mandaeism Affiliation | PRE | + + + | Race | White | + + + | Ethnic Group | Not or | + + + Author + + + | Author | [facility] | + + + | Organization | [facility] | + + + | Address | Unknown | + + + | Phone | Unavailable | + + + Support + + +---------+ + | Name | Relationship | Address | Phone | + + +---------+ + | Marnie Ontiveros | ECON | Unknown | | + + +---------+ + Care Team Providers + +------+ + | Care Trading Floor Operator Name | Role | Phone | + +------+ + | Christiano Wood DO | PCP | | + +------+ + Encounter Details +--------+---------+ + + + | Date | Type | Department | Care Team | Description | +--------+---------+ + + + | 03/20/ | Office | [facility] | Emil Parsons MD | Dermatochalasis of | | 2018 | Visit | [facility] | [address] | both upper eyelids | | | | [address] | Blvd [place], [place] | (Primary Dx) | | | | [facility] | [address] | | | | | [facility] | [phone] | | | | | [place] | | | | | | [address] | | | | | | [phone] | | | +--------+---------+ + + + [...] Dr. Parker for eye care RTC with la prn Physician attestation: I have reviewed and edited history and senior engineering technician documentation, and performed all elements to above examination documentation. Emil Parsons M.D. 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
--- OUTSIDE RECORDS SUMMARY | ~2018-09-27 | XMS | Encounter Summary ---
Demographics + + + | Address | [address] | | | [place] [address] | + + + | Home Phone | | + + + | Preferred Language | Unknown | + + + | Marital Status | | + + + | Adventism Affiliation | Unknown | + + + | Race | Unknown | + + + | Ethnic Group | Unknown | + + + Author + + + | Author | [facility] [employer] | + + + | Organization | [facility] | + + + | Address | Unknown | + + + | Phone | Unavailable | + + + Support + + + + + | Name | Relationship | Address | Phone | + + + + + | Marcial Ontiveros | ECON | [address] | | | | | [place], | | | | | [place] [address] | | + + + + + Care Team Providers + +------+ + | Care Eyeglass Assembler Name | Role | Phone | + +------+ + | Christiano Wodo DO | PCP | | + +------+ [...] | | | | | Procedures | [address] | | | | | | [place] | Phone: | | | | | | Pharmaceutic | [phone] | | | | | | al (stress | Fax: | | | | | | and rest) | [phone] | | + +--------+ + + + [...] | | electrocardi | [address] | [place], [place] | | | | | ogram (ECG) | [place], | [address] Phone: | | | | | (EKG | [place] [address] | [phone] | | | | | Procedures | Phone: | Fax: | | | | | CRD CONSULT | [phone] | [phone] | | | | | | Fax: | | | | | | | [phone] | | +--------+--------+ + + + + Encounter Details +--------+ + + + + | Date | Type | Department | Care Team | Description | +--------+ + + + + | 08/30/ | Initial | [facility] [place] | Pricilla Wahl DO | Abnormal EKG | | 2019 | consult | [facility] [place] | [address] | (Primary Dx); Chest | | | | [address] | [facility] | pain, unspecified | | | | Way [address] | [id number] | type; RBBB (right | | | | [place] [address] | | bundle branch block | | | | [phone] | | with left anterior | | [...] may be different from th e original. [facility] Cardiology Consult Note Reason for [...] | | | | | [place] | | | | | | [address] | | | | | | | [...] Abisai Ontiveros Date of : 1930 | [facility] | | Performing Physician: Pricilla Wahl | [...] | cm TAPSE: 2.88 cm AR Dec Mcpherson: 1.96 m/s2 AR Dec Time: | | [...] MV A Fabrice: 0.94 m/s MV Dec Mcpherson: 5.00 m/s2 MV DecT: | | | 206.30 ms MV E Fabrice: 1.03 m/s MV E/A Ratio: 1.09 E/E' | | | Sept: 24.55 E' Lat: 0.08 m/s E' Sept: 0.04 m/s | | | RAP: 5 mmHg RV S': 0.11 m/s RVSP: 39.44 mmHg TR | | | maxP.44 mmHg TR Vmax: 2.93 m/s Aircraft Design Engineer: | | | Authenticated by: Pricilla Wahl Report Date/Time: 09-20-2018 6:28:38 | | + + + + + | Procedure Note | + + | Syed, Rad Results In - 09/20/2018 6:30 AM PDT Patient Name: Eva Ontiveros of | | : 1930Accession: [id number] Physician: Pricilla | | Frye INDICATIONS | [...] mlLAESV Index (A-L): 39.34 ml/m2LAAs A2C: 27.67 [id number] A-L | | A2C: 99.44 mlLAESV MOD A2C: 98.07 mlLALs A2C: 6.53 cmLAAs A4C: 27.70 [id number] | | A-L A4C: 98.88 mlLAESV MOD A4C: 92.94 mlLALs A4C: 6.58 cmRAAs: 22.19 [id number] | | A-L: 69.90 mlRAESV MOD: 65.88 mlRALs: 5.97 cmTAPSE: 2.88 cmAR Dec Mcpherson: 1.96 | | m/s2AR Dec Time: 1791.55 msAR maxP.52 mmHgAR PHT: 519.55 msAR Vmax: 3.51 | | m/Emi Env.Ti: 316.55 msAV maxP.02 mmHgAV meanP.97 mmHgAV Vmax: 1.32 | | m/Emi Vmean: 0.93 m/Emi VTI: 29.65 cmAVA Vmax: 2.93 cm2AVA (VTI): 3.28 [id number] | | Vmax: 0.00 cm2/m2AVAI (VTI): 0.00 cm2/m2LVOT Env.Ti: 350.46 msLVOT maxP.15 | | mmHgLVOT meanP.48 mmHgLVSI Dopp: 38.44 ml/m2LVSV Dopp: 97.25 mlLVOT Vmax: | | 1.01 m/sLVOT Vmean: 0.72 m/sLVOT VTI: 25.49 cmMV A Fabrice: 0.94 m/sMV Dec Mcpherson: | | 5.00 m/s2MV DecT: 206.30 msMV [...] | |TAPSE: 2.88 cm | |AR Dec Mcpherson: 1.96 m/s2 | |AR Dec Time: 1791.55 [...] A Fabrice: 0.94 m/s | |MV Dec Mcpherson: 5.00 m/s2 | |MV DecT: 206.30 ms | |MV E Fabrice: 1.03 m/s | |MV E/A Ratio: 1.09 | |E/E' Sept: 24.55 | |E' Lat: 0.08 m/s | |E' Sept: 0.04 m/s | |RAP: 5 mmHg | |RV S': 0.11 m/s | |RVSP: 39.44 mmHg | |TR maxP.44 mmHg | |TR Vmax: 2.93 m/s | | | |Aircraft Design Engineer: | |Authenticated by: Pricilla Wahl | |Report [...] [facility] | [address] | [place] [address] | | + + + + + [...] + + + + | Calculated P [place] | 12 | degrees | [facility] EKG | + + + + + | Calculated R [place] | -49 | degrees | [facility] EKG | + + + + + | Calculated T [place] | -7 | degrees | [facility] | + + + + + | Diagnosis | Please refer to | | [facility] E[facility] | | | Providers office visit | | | | | note for Providers | | | | | Interpretation.Confirmed | | | | | by [facility] [place] Read Only, | | | | | [facility] Brandie ([id number]), | | | | | rewrite editor Torsten Garcia | | | | | ([id number]) on 08/30/2018 | | | | | 10:52:25 AM | | | + + + + + + + + + + | Performing | Address | City/State/Zipcode | Phone Number | | Organization | | | | + + + + + | [facility] E[facility] | [address] | [place] [address] | | + + + + + [...]
--- OUTSIDE RECORDS SUMMARY | ~2018-09-27 | XMS | Encounter Summary ---
Demographics + + + | Address | [address] | | | [place] [address] | + + + | Home Phone [...] Author | [facility] | + + + | Organization | [facility] | + + + | Address | Unknown | + + + | Phone | Unavailable | + + + Support + + +---------+ + | Name | Relationship | Address | Phone | + + +---------+ + | Marnie Ontiveros | ECON | Unknown | | + + +---------+ + Care Team Providers + +------+ + | Care Tar Distillation Supervisor Name | Role | Phone | [...] 2018 | Pass | [address] | | | | | | [place] | | | | | | [facility], | | | | | | [place] [address] | | | +--------+ + + + [...]
--- OUTSIDE RECORDS SUMMARY | ~2018-09-27 | XMS | Encounter Summary ---
Demographics + + + | Address | [address] | | | [place] [address] | + + + | Home Phone | | + + + | Preferred Language | Unknown | + + + | Marital Status | | + + + | Yazidi Affiliation | Unknown | + + + | Race | Unknown | + + + | Ethnic Group | Unknown | + + + Author + + + | Author | [email or web address] | + + + | Organization | [facility] [employer] [facility] | + + + | Address | Unknown | + + + | Phone | Unavailable | + + + Support + + + + + | Name | Relationship | Address | Phone | + + + + + | Marcial Ontiveros | ECON | [address] | | | | | [place], | | | | | [place] [address] | | + + + + + Care Team Providers + +------+ + | Care Survey Supervisor Name | Role | Phone | [...] | type | | | | | [phone] | | | | | | | [...] [place] | | | | | | [address] | | | | | | | [...] | cm TAPSE: 2.88 cm AR Dec Campbell: 1.96 m/s2 AR Dec Time: | | [...] MV A Fabrice: 0.94 m/s MV Dec Campbell: 5.00 m/s2 MV DecT: | | | 206.30 ms MV E Fabrice: 1.03 m/s MV E/A Ratio: 1.09 E/E' | | | Sept: 24.55 E' Lat: 0.08 m/s E' Sept: 0.04 m/s | | | RAP: 5 mmHg RV S': 0.11 m/s RVSP: 39.44 mmHg TR | | | maxP.44 mmHg TR Vmax: 2.93 m/s Medical Office Administrator: | | | Authenticated by: Pricilla Wahl Report Date/Time: 09-20-2018 6:28:38 | | + + + + + | Procedure Note | + + | Gino Lynch In - 09/20/2018 6:30 AM PDT Patient Name: Eva Ontiveros of | | : 1930Accession: [id number] Physician: Pricilla | | Maryuri INDICATIONS | [...] mlLAESV Index (A-L): 39.34 ml/m2LAAs A2C: 27.67 [id number] A-L | | A2C: 99.44 mlLAESV MOD A2C: 98.07 mlLALs A2C: 6.53 cmLAAs A4C: 27.70 [id number] | | A-L A4C: 98.88 mlLAESV MOD A4C: 92.94 mlLALs A4C: 6.58 cmRAAs: 22.19 [id number] | | A-L: 69.90 mlRAESV MOD: 65.88 mlRALs: 5.97 cmTAPSE: 2.88 cmAR Dec Campbell: 1.96 | | m/s2AR Dec Time: 1791.55 msAR maxP.52 mmHgAR PHT: 519.55 msAR Vmax: 3.51 | | m/Emi Env.Ti: 316.55 msAV maxP.02 mmHgAV meanP.97 mmHgAV Vmax: 1.32 | | m/Emi Vmean: 0.93 m/Emi VTI: 29.65 cmAVA Vmax: 2.93 cm2AVA (VTI): 3.28 [id number] | | Vmax: 0.00 cm2/m2AVAI (VTI): 0.00 cm2/m2LVOT Env.Ti: 350.46 msLVOT maxP.15 | | mmHgLVOT meanP.48 mmHgLVSI Dopp: 38.44 ml/m2LVSV Dopp: 97.25 mlLVOT Vmax: | | 1.01 m/sLVOT Vmean: 0.72 m/sLVOT VTI: 25.49 cmMV A Fabrice: 0.94 m/sMV Dec Campbell: | | 5.00 m/s2MV DecT: 206.30 msMV [...] | |TAPSE: 2.88 cm | |AR Dec Campbell: 1.96 m/s2 | |AR Dec Time: 1791.55 [...] A Fabrice: 0.94 m/s | |MV Dec Campbell: 5.00 m/s2 | |MV DecT: 206.30 ms | |MV E Fabrice: 1.03 m/s | |MV E/A Ratio: 1.09 | |E/E' Sept: 24.55 | |E' Lat: 0.08 m/s | |E' Sept: 0.04 m/s | |RAP: 5 mmHg | |RV S': 0.11 m/s | |RVSP: 39.44 mmHg | |TR maxP.44 mmHg | |TR Vmax: 2.93 m/s | | | |Medical Office Administrator: | |Authenticated by: Pricilla Wahl | |Report [...] | + + + + + | [facility] | [address] | [place] [address] | | + + + + + in this encounter Visit Diagnoses + + | Diagnosis | + + | Abnormal EKG | + + | Nonspecific abnormal electrocardiogram (ECG) (EKG) | + + | Chest pain, unspecified type | + +"
--- OUTSIDE RECORDS SUMMARY | ~2018-09-27 | XMS | Encounter Summary ---
Demographics + + + | Address | [address] | | | [place] [address] | + + + | Home Phone | | + + + | Preferred Language | Unknown | + + + | Marital Status | | + + + | Mosque Affiliation | Unknown | + + + | Race | Unknown | + + + | Ethnic Group | Unknown | + + + Author + + + | Author | [facility] | + + + | Organization | [facility] | + + + | Address | Unknown | + + + | Phone | Unavailable | + + + Support + + + + + | Name | Relationship | Address | Phone | + + + + + | Marcial Ontiveros | ECON | [address] | | | | | [place], | | | | | [place] [address] | | + + + + + Care Team Providers + +------+ + | Care Sales And Service Technician Name | Role | Phone | [...] | 2019 | on Only | [facility] [place] | RT | Monitor (end of | | | | [address] | | study) | | | | [place], [place] | | | | | | [address] | | | | | | [phone] | | | +--------+ + + + [...] this repres ents a 0.09% burden. Also, [address] PVCs were recorded; this represents a 21% [...] [place] | | | | | | [address] | | | | | | | | +--------+---------+ + + + as of this encounter Visit Diagnoses + + | Diagnosis | + + | Other specified heart block - Primary | + +"
--- OUTSIDE RECORDS SUMMARY | ~2018-09-27 | XMS | Encounter Summary ---
Demographics + + + | Address | [address] | | | [place] [address] | + + + | Home Phone | | + + + | Preferred Language | Unknown | + + + | Marital Status | | + + + | Scientologist Affiliation | Unknown | + + + | Race | Unknown | + + + | Ethnic Group | Unknown | + + + Author + + + | Author | [facility] | + + + | Organization | [facility] | + + + | Address | Unknown | + + + | Phone | Unavailable | + + + Support + + + + + | Name | Relationship | Address | Phone | + + + + + | Marcial Ontiveros | ECON | [address] | | | | | [place], | | | | | [place] [address] | | + + + + + Care Team Providers + +------+ + | Care Machine Binder Stripper Name | Role | Phone | + [...] | | | | JENNIFER F | [place], [place] | | | | | | [place], [place] | [address] | | | | | | [address] | Phone: | | | | | | Phone: | [phone] | | | | | | [phone] | Fax: | | | | | | Fax: | [phone] | | | | | | [phone] | | +--------+--------+ + + + + Encounter Details +--------+ + + + + | Date | Type | Department | Care Team | Description | +--------+ + + + + | 09/10/ | Documentati | [facility] [place] | Pricilla Wahl DO | Holter (24 hr) | | 2019 | on Only | [facility] [place] | [address] | | | | | [address] | [place], [place] | | | | | [facility] [address] | [address] | | | | | [place] [address] | | | | | | [phone] | Neisha Dowell MA | | +--------+ [...] given and understood. Patient instructed to call [employer] for any billing or monitor questions. in this encounter Plan of Treatment +--------+---------+ + + + | Date | Type | Specialty | Care Team | Description | +--------+---------+ + + + | 12/13/ | Office | Cardiology | Pricilla Wahl DO | | | 2018 | Visit | | [address] | | | | | | [place] | | | | | | [address] | | | | | | | | +--------+---------+ + + + as of this encounter Visit Diagnoses + + | Diagnosis | + + | Abnormal EKG | + + | Nonspecific abnormal electrocardiogram (ECG) (EKG) | + +"
--- OUTSIDE RECORDS SUMMARY | ~2018-09-27 | XMS | Encounter Summary ---
Demographics + + + | Address | [address] | | | [place] [address] | + + + | Home Phone | | + + + | Preferred Language | Unknown | + + + | Marital Status | | + + + | Yarsanism Affiliation | Unknown | + + + | Race | Unknown | + + + | Ethnic Group | Unknown | + + + Author + + + | Author | [facility] | + + + | Organization | [facility] [employer] [facility] | + + + | Address | Unknown | + + + | Phone | Unavailable | + + + Support + + + + + | Name | Relationship | Address | Phone | + + + + + | Marcial Ontiveros | ECON | [address] | | | | | [place], | | | | | [place] [address] | | + + + + + Care Team Providers + +------+ + | Care Cassandra Consultant Name | Role | Phone | + [...] | | | | JENN[place]ER F | [place], [place] | | | | | | [place], [place] | [address] | | | | | | [address] | Phone: | | | | | | Phone: | [phone] | | | | | | [phone] | Fax: | | | | | | Fax: | [phone] | | | | | | [phone] | | +--------+--------+ + + + + Encounter Details +--------+ + + + + | Date | Type | Department | Care Team | Description | +--------+ + + + + | 09/10/ | Documentati | [facility] [place] | Pricilla Wahl DO | Holter (24 hr) | | 2019 | on Only | [facility] [place] | [address] | | | | | [address] | [place], [place] | | | | | [facility] [address] | [address] | | | | | [place] [address] | | | | | | [phone] | Neisha Dowell MA | | +--------+ [...] given and understood. Patient instructed to call [facility] for any billing or monitor questions. in this encounter Plan of Treatment +--------+---------+ + + + | Date | Type | Specialty | Care Team | Description | +--------+---------+ + + + | 12/13/ | Office | Cardiology | Pricilla Wahl DO | | | 2018 | Visit | | [address] | | | | | | [place] | | | | | | [address] | | | | | | | | +--------+---------+ + + + as of this encounter Visit Diagnoses + + | Diagnosis | + + | Abnormal EKG | + + | Nonspecific abnormal electrocardiogram (ECG) (EKG) | + +"
--- OUTSIDE RECORDS SUMMARY | ~2018-09-27 | XMS | Encounter Summary ---
Demographics + + + | Address | [address] | | | [place] [address] | + + + | Home Phone | | + + + | Preferred Language | Unknown | + + + | Marital Status | | + + + | Restorationism Affiliation | PRE | + + + [...] Team Providers + +------+ + | Care Adjunct Instructor Chemistry Name | Role | Phone | + [...] | | | | | | [address] | | | | | | [place], [place] | | | | | | [address] | | | | | | [phone] | | | +--------+ + + + [...]
[~2018-09-27 20:10] MED LIST changes: +CEFPODOXIME PR200 MG PO; +METOPROLOL SUC100 MG PO; +NOVOLOG FL100 UNIT/1 SUB-Q; +RELENZA5 MG INH; +SYNTHROID25 MCG PO; +VITAMIN B-12500 MCG PO
--- NOTE | 2018-09-27 23:55 | NUR ---
PT ARRIVES TO MS FLOOR VIA STRETCHER. 4PA TO TRANSFER TO BED. CORDERO DRAINING WNL. SMALL BM NOTED, ATTENDS AND CHUX CHANGED. VSS. PT RESTING IN BED. PRIMARY RN IN ROOM. BED ALARM IN PLACE.
--- NOTE | 2018-09-28 03:09 | NUR ---
TURNED, COOPERATIVE WITH ASSESSMENT AND VITALS, CONTINUES TO BE CONFUSED TO ALL, COOPERATIVE AND FOLLOWS INSTRUCTIONS, TAKES SHALLOW BREATHS, ON ROOM AIR. F/C PATENT, DRAINING CLEAR YELLOW URINE. IVF INFUSING
--- NOTE | 2018-09-28 04:40 | NUR ---
Resting, continues to be disoriented to all, calm, follows instructions well, answers some questions slowly, clear speech, but not the correct answer. f/c patent, turned. Aspiration and fall precautions in place. Call light at bedside. bed alarm on
--- NOTE | 2018-09-28 05:23 | NUR ---
TEMP 100.0, ROOM TEMP WAS AT 75, DECREASED TO 68, BEDSPREAD REMOVED. PT UNABLE TO DO CDB DUE TO CONFUSION. AWAKENS TO SOUND. SPEECH CLEAR, BUT NOT TO TOPIC. WILL RECHECK TEMP IN ONE HOUR, WILL NOTIFY MD IF STILL HIGH. F/C PATENT
--- NOTE | 2018-09-28 06:23 | NUR ---
MILLER NOTIFIED VIA PHONE ABOUT PTS INCREASED OF TEMP. NEW ORDER FOR TYLENOL 650MG PO PRN PAIN/FEVER OBTAINED. WILL MEDICATE PT.
--- NOTE | 2018-09-28 06:44 | NUR ---
MEDICATED WITH TYLENOL 650MG PO PER INCREASED TEMP. TEMP AT THIS TIME 100.8. PT REPOSITIONED INBED, AWALE, TRIED TO HELP WITH REPOSITIONING. CONFUSED AND DISORIENTED TO ALL BUT NAME. COOPERATIVE. HOB, ASPIRATION PRECAUTIONS INPLACE.
--- NOTE | 2018-09-28 07:15 | NUR ---
SHIFT REPORT RECEIVED. PATIENT RESTING IN BED. REPLIED "HELLO" WHEN GREATED BUT QUICKLY APPEARS ASLEEP AGAIN. ALLOWED TO REST. CALL LIGHT IN REACH.
--- NOTE | 2018-09-28 07:41 | NUR ---
PATIENT RESTING IN BED. PATIENT'S BREAKFAST ORDERED. CALL LIGHT WITHIN REACH. NO OTHER NEEDS AT THIS TIME
--- NOTE | 2018-09-28 08:30 | NUR ---
PATIENT RESTING IN BED. RN IN ROOM. PATIENT TRANSFERRED TO CHAIR. TWO PERSON ASSITING. LINENS CHANGED. SETS UP TABLE FOR BREAKFAST. PATIENT FED. CALL LIGHT WITHIN REACH. NO OTHER NEEDS AT THIS TIME
--- NOTE | 2018-09-28 08:55 | NUR ---
PATIENT'S ABNORMAL VS WITH ELEVATED HR REPORTED TO DR. HUFF. REQUEST TO MONITOR VS CLOSELY BUT NO NEW ORDERS. SCHEDULED MEDICATIONS PROVIDED.
--- NOTE | 2018-09-28 09:09 | NUR ---
PATIENT ALERT. ABLE TO STATE HIS NAME AND HIS LOCATION. UNSURE OF THE YEAR AND EVENTS LEADING TO HIS HOSPITALIZATION. DISCUSSED PRIOR EVENTS LEADING TO HIS ARRIVAL PER THE ED NOTES. PATIENT APPEARS TO RETAIN THIS INFORMATION. PATIENT'S SPEECH IS CLEAR BUT OCCATIONALLY SLOW TO RESPOND. FACIAL MOVEMENTS SYMETRICAL. STRENGTH WEAK BILATERALLY IN UPPER AND LOWER EXTREMITIES. PATIENT'S LUNGS ARE CLEAR. ABD SOFT AND NONTENDER. PATIENT DENIES PAIN. IV FLUIDS PER ORDER, SITE WNL. PATIENT ABLE TO GET UP TO RECLINER WITH 2PA. PATIENT FOLLOWS SOME INSTRUCTIONS BUT APPEARS UNSURE OF WHAT TO DO TO AMBULATE. PT/OT ORDERED. PATIENT ASSISTED IN EATING BREAKFAST BY WOLF HUNTER. APPEARS ALERT BUT WITHDRAWN. CALL LIGHT IN REACH.
--- NOTE | 2018-09-28 09:49 | NUR ---
PATIENT SITTING UP IN CHAIR. VITAL SIGNS AND I&O DONE. HIGH HEART RATE, RN NOTIFIED. DAUGHTER IN ROOM. CALL LIGHT WITHIN REACH. NO OTHER NEEDS AT THIS TIME
--- NOTE | 2018-09-28 10:52 | NUR ---
MD IN TO EVALUATE PATIENT. VERBAL ORDER FOR TELE. TELE #10 PLACE. HR 80, APPERAS TO BE SINUS RHYTHM AT THIS TIME. PATIENT UP IN RECLINER. FAMILY IN ROOM. DENIES NEEDS AT THIS TIME.
--- NOTE | 2018-09-28 11:59 | NUR ---
MRI SCREENING SHEET FILLED OUT BY THIS RN WITH ASSISTANCE OF PATIENT'S AND SISTER AT THE BEDSIDE. PATIENT HAS HAD MRI IN THE PAST AND THE FAMILY APPEARED KNOWLEDGEABLE. PATIENT PARTICIPATED IN THE CONVERSATION BUT APPEARS FREQUENTLY DROSWEY. PATIENT AND FAMILY DENIES FURTHER NEEDS.
--- NOTE | 2018-09-28 15:07 | NUR ---
PT RESTING IN BED AND DENIES ANY PAIN OR SOB. PT IS CONFUSED AND IS UNABLE TO FOLLOW MANY OF THE COMMANDS THAT WERE REQEUSTED. BED ALARM TURNED ON AND THE FAMILY AT THE BEDSIDE. CALL CARO WITHIN REACH. PT SR ON TELE#10. PT NOW WORKING WITH PHYSICAL THERAPY.
--- NOTE | 2018-09-28 17:11 | NUR ---
PATIENT SLEEPING. VISITORS IN ROOM. I&O DONE. VITAL SIGNS DONE BY RN. CALL LIGHT WITHIN REACH. NO OTHER NEEDS AT THIS TIME
--- NOTE | 2018-09-28 17:23 | NUR ---
IV FLUID DC'D ORDERED.
--- NOTE | 2018-09-28 17:36 | NUR ---
PT SITTING UP HIGH IN THE BED AND IS EATING DINNER WITH HELP FROM HIS FAMILY AT THIS TIME.
--- NOTE | 2018-09-28 18:30 | NUR ---
PT RESTING IN HIS BED VISITING WITH HIS FAMILY. HE DENIES ANY PAIN AT THIS TIME.
--- NOTE | 2018-09-28 19:15 | NUR ---
SHIFT REPORT RECEIVED FROM DAYSHIFT MANAN BLISS AT BEDSIDE. PT RESTING IN BED, FAMILY IN ROOM. PT APPEARS COMFORTABLE, NO DISTRESS NOTED. PT DENIES NEEDS, CALL LIGHT IN REACH. BED ALARM ON FOR SAFETY.
--- NOTE | 2018-09-28 20:04 | NUR ---
CHARGE NURSE ROUNDING NOTE: CONTINUES TO BE CONFUSED AND HAS WORD JORDIN, CLEAR SPEECH, DISORIENTED TO ALL EXCEPT HIS NAME. REPORISIONED IN BED. SL PATENT, TELE IN PLACE, F/C PATENT, GENTLY REMINDERS GIVEN PT WAS PULLING AT CATHERER. CALL LIHGT AND FLUIDS AT BEDSIDE. EASILY REDIRECTED. BED ALARM ON. FAMILY IN ROOM.
--- NOTE | 2018-09-28 20:30 | NUR ---
ASSESSMENT COMPLETE, SCHEDULED MEDICATIONS GIVEN (SEE EMAR). PT FORGETFUL, PT 1:1. OWNER MANAGER JULY IN ROOM, BED ALARM ON FOR SAFETY. ACCUC CHECK RESULT OF 174, 1 UNIT INSULIN SS AND SCHEDULED 10 UNITS LANTUS ADMINISTERED. PT SALINE LOCKED, IV SITE WNL. VSS, PT ON TELE #10, NSR, HR WNL. PT DENIES ADDITIONAL NEEDS, CALL LIGHT IN REACH.
--- NOTE | 2018-09-28 20:32 | NUR ---
VITALS DONE AND CHARTED. BLOOD SUGAR DONE WELL. DID ADRIANA CARE ON PT. FRESH ICE WATER GIVEN. WITH THE HELP OF RN NAVIN WE REPOSITIONED PT IN BED. BEDSIDE TABLE AND CALL LIGHT IN REACH. PT TRIES TO MESS AND PULL ON HIS CORDERO CATHETER AT TIMES. VERY EASILY REDIRECTED. PT RESTING IN BED.
--- NOTE | 2018-09-28 21:44 | NUR ---
I&OS DONE AND CHARTED. PT IS RESTING IN BED WATCHING TV. HE HAS TRIED GRABBING HIS CORDERO CATHETER A COUPLE TIME BUT EASILY REDIRECTED. BEDSIDE TABLE NEXT TO HIM FRESH ICE WATER GIVEN.
--- NOTE | 2018-09-28 22:31 | NUR ---
PT RESTING IN BED, EYES OPEN, RR WNL. PT WATCHING TELEVISION. PT 1:1, BED ALARM ON FOR SAFETY, ELECTRONIC MAINTENANCE SUPERVISOR JULY IN ROOM. PT DNEIES NEEDS AND APPEARS COMFORTABLE. CALL LIGHT IN REACH.
--- NOTE | 2018-09-29 01:17 | NUR ---
PT RESTING IN BED, WATCHING TELEVISION. PT 1:1July TREER IN ROOM, BED ALARM ON FOR SAFETY. CALL LIGHT IN REACH.
--- NOTE | 2018-09-29 03:30 | NUR ---
ASSESSMENT COMPLETE, NO NEW CHANGES. PT A/O TO SELF, PLEASANT AND FOLLOWS COMMANDS. FORGETFUL REGARDING DATE, PLACE, AND EVENTS. TELE #[address], NSR WITH PVC'S AT TIMES. PT DENIES PAIN. CORDERO CATHETER IN PLACE, VOIDING QS. NO BM. PT 1:1, VASCULAR NEUROLOGIST JULY IN ROOM, BED ALARM ON FOR SAFETY. DENIES ADDDITONAL NEEDS, CALL LIGHT IN REACH.
--- NOTE | 2018-09-29 05:31 | NUR ---
VITALS AND I&OS DONE AND CHARTED. FRESH ICE WATER GIVEN. BEDSIDE TABLE AND CALL LIGHT IN REACH IF NEEDED. PT AWAKE AND WATCHING TV.
--- NOTE | 2018-09-29 06:13 | NUR ---
WITH THE HELP OF RN NAVIN WE DID A COMPLETE BED CHANGE DUE TO INCONTINENCE OF A LARGE BM. CHANGED HIS GOWN AND DID PERICARE WELL. BEDSIDE TABLE AND CALL LIGHT IF NEEDED, PT SITTING UP IN BED AND WATCHING TV AND HAVING SMALL CONVERSATION WITH ME AT TIMES. MOOD IS GOOD. SMILING AND GIGGLING A LOT.
--- NOTE | 2018-09-29 06:24 | NUR ---
scheduled thyroid medication administered.
--- NOTE | 2018-09-29 06:27 | NUR ---
pt had uneventful night, slept on and off this shift. vss, pt on ra. a/o to self, forgetful. tele #[id number], nsr with pvc's. pain controlled with prn tylenol. awad catheter in place, voiding qs, bm x1 this shift. 60g carb diet, scheduled lantus with insulin lispro ss. received 1 unit last night for accu check result of 174. bed alarm on for safety, pt 1:1.
--- NOTE | 2018-09-29 06:47 | NUR ---
IN CONCLUSION TO THE NIGHT WITH THE PT. HE SEEMED CONFUSED MOST OT THE NIGHT AND I HAD TO CONTINUALLY WATCH HIM FROM REACHING DOWN AND TRYING TO PULL ON HIS CORDERO CATH. HE DID DOZE SOME THROUGH THE NIGHT BUT WAS VERY FIGITY WITH HIS BLANKETS AND TRYING TO REACH FOR HIS CORDERO. HE WAS VERY EASILY REDIRECTED WHEN I EXPLAINED WHAT HE WAS TRYING TO DO. PT WAS VERY PLEASANT ALL NIGHT WITH SOME COVERSATION. A LOT OF THE TIMES HE WOULD TALK , IT WAS ABOUT VERY RANDOM SUBJECTS. HE SOMETIMES CAN'T REMEMBER THE WORD HE IS TRYING TO SPEAK OF. MOST OF THE NIGHT HE WOULD ASK WHERE HE WAS? WHEN I TOLD HIM HE SAID"OH HOW ABOUT THAT".
--- NOTE | 2018-09-29 07:20 | NUR ---
PATIENT RESTING IN BED. PATIENT'S BREAKFAST ORDERED. CALL LIGHT WITHIN REACH. NO OTHER NEEDS AT THIS TIME
--- NOTE | 2018-09-29 07:37 | NUR ---
REPORT RECEIVED FROM MANAN GARCIA. PT RESTING IN BED SMILING AND WATCHING TV. PT ORIENTED TO SELF. PT DENIES PAIN AND NAUSEA. CALL LIGHT WITHIN REACH. BED RAILS UP. BED ALARM ON.
--- NOTE | 2018-09-29 09:30 | NUR ---
ATTEMPTED TO ASSIST PT UP TO BSC, NOTED INCREASED WEAKNESS IN LEGS, PT MUMBLING AND NOT MAKING SENSE, NOTED MILD L DROOP IN CHEEK AND WITH SMILE, DR BRAVO CAME TO ROOM AND ORDERED PT TO GO TO CT. ASSISTED TO BED AND TAKEN TO CT.
--- NOTE | 2018-09-29 09:40 | NUR ---
MORNING ASSESSMENT AND MEDICATION DUE. THIS RN TO BEDSIDE. MEDICATIONS GIVEN BY CHARGE, MANAN SLOAN. PT UP TO CHAIR. PT ASSISTED UP TO COMODE. ASSESSMENT DONE. PT ONLY ORIENTED TO SELF. SPEECH GARBLED AND GIBBERISH. LEFT SIDED DROOP NOTED IN FACE. MD NOTIFIED. STAT CT SCAN ORDERED. PT TRANSPORTED TO CT BY SANDI SLOAN RN. FAMILY UPDATED.
--- NOTE | 2018-09-29 12:39 | NUR ---
NOON ASSESSMENT AND MEDICAITON DUE. FAMILY REPORTS PT IS AGITATED BECAUSE HE NEEDS TO USE THE RESTROOM. PT ASSISTED WITH USEING BED CRAMER. PT NOT STEADY ON FEET AT THIS TIME, LEFT SIDED WEAKNESS CONTINUES. UNABLE TO SAFELY STAND AT THIS TIME. ASSESSMENT DONE. PT ONLY ORIENTED TO HIS OWN NAME AT THIS TIME. LEFT SIDED DROOP BARELY PERCEPTABLE. SHRUTI NOTED. PT EATING LUNCH WITH FAMILY AT BEDSIDE. FAMILY ENCORUAGED TO NOTIFY NURSING STAFF IF PTS AGITATION WORSENS. FAMILY STATES PT APPEARS COMFORTABLE AT THIS TIME AND DOES NOT APPEAR TO BE IN PAIN. BED RAILS UP. BED ALARM ON.
--- NOTE | 2018-09-29 14:06 | NUR ---
PT IS ALERT, SITTING UP IN BED SMILING, CONT. TO HAVE VERY POOR MEMORY, FAMILY AT BEDSIDE, CONSUELO TIRADO DC'D AT THIS TIME. GOOD PO INTAKE.
--- NOTE | 2018-09-29 14:43 | NUR ---
THIS RN TO ROOM FOR ROUNDS WITH MD. PT TALKING IN SENTENCES THAT ARE NO APPROPRIATE FOR THE SITUATION. PT ONLY ORIENTED TO SELF. PT PLAYING WITH BEDSHEETS. FAMILY AT BEDSIDE. NO ADDITIONAL REQUESTS OR COMPLAINTS AT THIS TIME. BED RAILS UP. BED ALARM ON.
--- NOTE | 2018-09-29 14:49 | NUR ---
FINISHED ROUNDING PT REPOSITIONED IN BED FAMILY AT BEDSIDE. PT ALERT AND VERBAL, COOPERATIVE WITH CARE AT THIS TIME.
--- NOTE | 2018-09-29 17:00 | NUR ---
AFTERNOON ASSESSMENT DUE. PT AGITATED AND FAMILY STATES HE IS READY FOR DINNER. ATTEMPTED TO GET PT UP TO CHAIR WITH 2PA. PT UNABLE TO SIT UP IN BED. PT FOUND TO BE SOILED WITH URINE AND STOOL. LINEN CHANGE, ADRIANA CARE DONE. DEPENDS IN PLACE. PT AGITATED WITH TURNING. FAMILY STATES PT IS IN PAIN. FLACC SCALE SHOWS 5/10 PAIN, SEE MAR FOR MEDICATION GIVEN. ASSESSMENT DONE. MEDICATION GIVEN. PT NOT INTERESTED IN DINNER. PT RESTING WITH EYES CLOSED, RR = 20 BPM. EVEN AND UNLABORED. ASPIRATION PRECAUTIONS IN PLACE. BED RAILS UP. FAMILY AT BEDSIDE.
--- NOTE | 2018-09-29 18:30 | NUR ---
PT HERE FOR ALTERED MENTAL STATUS. LEFT SIDED DROOP NOTED TODAY. CT SCAN DONE, NEGATIVE RESULTS. CONFUSION CONTINUES THIS SHIFT. PT ORIENTED ONLY TO SELF THIS SHIFT. TELE AND CORDERO DC'D THIS SHIFT. PT UP TO CHAIR THIS MORNING BUT HAS INCREASING WEAKNESS THIS AFTERNOON. PT INCONTINANT OF STOOL AND URINE THIS AFTERNOON. DEPENDS IN PLACE. PT TOLERATING 60G CARB DIET WITH CBG CHECKS, SLIDING SCALE INSULIN GIVEN AT MEALS THIS SHIFT. BED/CHAIR ALARM. VOIDING QUANTITY SUFFICIENT THIS SHIFT. PT DOES NOT USE CALL LIGHT.
--- NOTE | 2018-09-29 18:43 | NUR ---
THIS RN TO ROOM TO CHECK ON PT. PT RESTING WITH EYES CLOSED. RESPIRATIONS EVEN AND UNLABORED. BED RAILSUP. BED ALARM ON.
--- NOTE | 2018-09-29 19:05 | NUR ---
SHIFT REPORT RECEIVED FROM [facility] MANAN CRISTOBAL AT BEDSIDE. PT RESTING IN BED, EYES CLOSED, RR WNL. PT APEARS COMFORTABLE, NO SIGNS OF DISTRESS NOTED. PT HAS CAKE IN HANDS, CAKE REMOVED FOR SAFETY AND PLACED ON BEDSIDE TABLE. BED ALRM ON FOR SAFETY, ASPIRATION PRECAUTIONS IN PLACE. CALL LIGHT IN REACH.
--- NOTE | 2018-09-29 20:14 | NUR ---
CHARGE NRSE ROUNDING NOTE:, AWAKES EASILY, CONTINUES TO HAVE WORD SALAD, CONFUSED, EASILY REDIRECTABLE. BED ALARM ON. HOB ELEVATED, ASPIRATION AND HIGH FALL RISK PRECAUTIONS IN PLACE. FLUIDS AND CALL LIGHT AT BEDSIDE, NO S/SX OF PAIN
--- NOTE | 2018-09-29 21:15 | NUR ---
ASSESSMENT COMPLETE, PT RESTING IN BED, APPEARS COMFORTABLE. NO DISTRESS NOTED. PT A/O ONLY TO SELF, SLOW TO RESPOND AND STUTTERS AT TIMES. PT FORGETFUL, BED ALARM ON FOR SAFETY. PT PULLED IV TO RIGHT WRIST, CATHETER TIP INTACT, NO BLEEDING NOTED. DR HUFF AWARE, PER MD, OKAY TO LEAVE IV CATHETER OUT FOR REMAINING OF NIGHT. PER DR HUFF, "WE'LL REACCESS TOMORROW MORNING". ACUCHECK RESULT OF 216, 15 UNITS OF SCHEDULED LANTUS AND 3 UNITS OF INSULIN SS ADMINISTERED. PT INCONTINENT, ADRIANA CARE COMPLETED WITH HELP FROM THOMAS HINKLE. PT REPOSITIONED. NO FURTHER NEEDS, CALL LIGHT IN REACH. BED ALARM ON FOR SAFETY.
--- NOTE | 2018-09-29 21:58 | NUR ---
VITALS AND I&OS DONE AND CHARTED. BEDSIDE TABLE AND CALL LIGHT IN REACH. FRESH ICE WATER GIVEN. PT NEEDS NOTHING MORE AT THIS TIME.
--- NOTE | 2018-09-29 23:36 | NUR ---
PT RESTING IN BED, APPEARS COMFORTABLE. NO SIGNS OF DISTRESS NOTED. PT RESPOSITIONED WITH HELP FROM TREVER BIPIN. CALL LIGHT IN REACH, BED ALARM ON FOR SAFETY.
--- NOTE | 2018-09-30 00:11 | NUR ---
WITH THE HELP OF MAANN GARCIA WE DID A COMPLETE BED CHANGE DUE TO INCONTINENCE OF URINE. GARBAGES EMPTIED. REPOSITIONED IN BED TO HIS COMFORT ON HIS LEFT SIDE. BEDSIDE TABLE AND CALL LIGHT IN REACH. PT NEEDS NOTHING MORE AT THIS TIME.
--- NOTE | 2018-09-30 01:20 | NUR ---
PT RESTING IN BED, EYES CLOSED, RR WNL. PT APPEARS COMFORTABLE, NO SIGNS OF DISTRESS NOTED. HOB ELEVATED. CALL LIGHT IN REACH, BED ALARM ON FOR SAFETY.
--- NOTE | 2018-09-30 03:15 | NUR ---
PT INCONTINENT OF URINE, ADRIANA CARE COMPLETED. WHILE REPOSITIONING PT, PT VOIDED IN BED. BED CHANGE COMPLETE, NEW ATTENDS IN PLACE. PT REPOSITONED. WHEN ASKED IF PT WAS IN PAIN, PT STATED, "NO, I DON'T HAVE ANY PAIN". PT DISORIENTED TO PLACE, DATE, EVENTS, AND SURROUNDINGS. HOB ELEVATED, ASPIRATION PRECAUTIONS IN PLACE. NO FURTHER NEEDS, CALL LIGHT IN REACH.
--- NOTE | 2018-09-30 03:32 | NUR ---
WITH THE HELP OF MANAN GARCIA AND MANAN ROSEN WE WERE ABLE TO DO A COMPLETE BED CHANGE DUE TO INCONTINENCE OF URINE. BEDSIDE TABLE AND CALL LIGHT IN REACH. BED ALARM ON. PT NEEDS NOTHING MORE AT THIS TIME.
--- NOTE | 2018-09-30 05:21 | NUR ---
PT HAD UNEVENTFUL NIGHT, SLEPT ON AND OFF THIS SHIFT. PT A/O ONLY TO SELF, FORGETFUL AND SLOW TO RESPOND. NO SIGNS OF STROKE NOTED THIS SHFIT. BED ALARM ON FOR SAFETY. PT PULLED OUT IV DURING NIGHT, NO IV ACCESS AT THIS TIME. AWARE. 60 G CARB DIET, INSULIN SS. NO NAUSEA THIS SHIFT. PT INCONTINENT, VOIDING QS. BM NOTED.
--- NOTE | 2018-09-30 06:30 | NUR ---
vss and recorded. pt incontinent, dina care complete, new attends in place. pt repositioned in bed. no further needs, call light in reach. bed alarm on for safety.
--- NOTE | 2018-09-30 06:31 | NUR ---
scheduled thyroid medication administered.
--- NOTE | 2018-09-30 06:50 | NUR ---
after repositioning pt, moaning and grunting noted. pt reported 5/10 pain. prn tylenol given. call light in reach, bed alarm on for safety.
--- NOTE | 2018-09-30 07:25 | NUR ---
PT RESTING SUPINE IN BED EYES CLOSED AND RESPIRATIONS EVEN AND UNLABORED. PT APPEARS TO BE SLEEPING COMFORTABLY. CALL LIGHT AND H20 IN REACH.
--- NOTE | 2018-09-30 08:28 | NUR ---
PT RESTING IN BED IN FOLWERS POSITION. PT APPEARS DROWSY AND IS NOT EATING HIS BREAKFAST SO SS INSULIN WAS HELD. ASSESSMENT COMPLETED. CALL LIGHT AND H20 IN REACH. PT NONVERBAL DURING ASSESSMENT BUT DOES RESPOND TO VOICE WITH EYE CONTACT. VSS. RR18 AND PT APPEARS TO BE IN NO DISTRESS.
--- NOTE | 2018-09-30 11:40 | NUR ---
PT ASSISTED UP TO HIGH FOWLERS POSITION IN BED AND FAMILY IS AT BEDSIDE ASSISTING WITH FEEDING PATIENT. CALL LIGHT AND H20 IN REACH. PT IS STILL DROWSY BUT APPEARS MORE ALERT AFTER SHOWER AND RESPONDS TO VOICE. PT'S HEARING AID BATTERY IS SO PT IS [place] AT THIS TIME, FAMILY STATES THEY WILL BRING IN BATTERY.
--- NOTE | 2018-09-30 12:05 | NUR ---
PATIENTS GLUCOSE TEST WAS DONE AND REPORTED TO NURSE
--- NOTE | 2018-09-30 13:30 | NUR ---
PT RESTING SUPINE IN BED PT AND ATG ARCHITECT IN ROOM AND ASSIST THIS RN WITH TRANSFERING PT FROM BED TO CHAIR. PASCUAL LIFT WITH SLING APPLIED AND USED ONLY TO ASSIST PT IN STANDING AND TO PREVENT POSSIBILITY OF FALL. PT AMBULATED FROM RIGHT SIDE OF BED TO CHAIR ON LEFT SIDE OF BED WITH SLOW BUT STEADY GAIT WITH FWW AND PILLO LIFT. PT ASSISTED INTO RECLINING POSITION IN CHAIR AND COVERED WITH SHEET. PT STATES HE IS COMFORTABLE AND DENIES PAIN OR NAUSEA. NO FURTHER CONCERNS/NEEDS VOICED. CALL LIGHT AND H20 IN REACH. FAMILY REMAINS AT BEDSIDE.
--- NOTE | 2018-09-30 14:56 | NUR ---
PT RESTING RECLINED IN CHAIR, PT REQUESTED AND RECEIVED ASSISTANCE SITTING UP IN CHAIR, PT STATES HE IS COMFORTABLE NOW AND DENIES FURHTER NEEDS/CONCERNS. CALL LIGHT AND H20 IN REACH. FAMILY AT BEDSIDE.
--- NOTE | 2018-09-30 16:08 | NUR ---
PT ASSISTED UP FROM CHAIR AND AMBULATES VERY SLOWLY FROM CHAIR TO BED WITH 2PA AND PILLO LIFT FOR SAFETY. PT DID REQUIRE HEAVY ASSIST WITH USE OF PILLO LIFT TO GET UP FROM CHAIR. PT INCONTINANT OF URINE, PT CLEANSED AND NEW ATTENDS PLACED ON PT. PT STATES HE IS COMFORTABLE. CALL LIGHT AND H20 IN REACH. PT PROVIDED WITH CRANBERRY JUICE/DIET 7UP. NO FURTHER NEEDS/CONCERNS VOICED.
--- NOTE | 2018-09-30 19:10 | NUR ---
PT RESTING IN BED, EYES CLOSED, RR WNL. OCCASSIONAL MOANING NOTED, PT RECENTLY MEDICATED WITH PRN TYLENOL. PT'S DAUGHTER IN ROOM AND INFORMED BY DAUGHTER THAT PT IS INCONTINENT. SEED PRODUCTION FIELD SUPERVISOR IN ROOM TO ASSIST WITH ADRIANA CARE AND BED CHANGE. NO FURTHER NEEDS, CALL LIGHT IN REACH. BED ALARM ON FOR SAFETY.
--- NOTE | 2018-09-30 19:15 | NUR ---
WITH THE HELP OF TREVER ALVAREZ WE CHANGED AND REPOSIONED PT TO HIS COMFORT. BEDSIDE TABLE AND CALL LIGHT IN REACH.
--- NOTE | 2018-09-30 21:08 | NUR ---
ROUNDED CHARGE. PATIENT IS RESTING IN BED. RADHA RN IN ROOM. PATIENT DENIES ANY COMMENTS, QUESTIONS, OR CONCERNS. NO NEEDS NOTED. CALL LIGHT IN REACH. AND BED ALARM ON FOR SAFETY.
--- NOTE | 2018-09-30 21:21 | NUR ---
ASSESSMENT COMPLETE. PT A/O TO SELF, BED ALARM ON FOR SAFETY. PT FORGETFUL, BUT APPEARS IN GOOD SPIRITS. VSS, PT ON RA. NO DISTRESS NOTED. ACCUCHECK RESULT OF 196, 3 UNITS INSULIN SS AND 20 UNITS LANTUS ADMINISTERED. PT DRY AT THIS TIME, WILL MONITOR. PT REPOSITIONED IN BED. NO FURTHER NEEDS, CALL LIGHT IN REACH.
--- NOTE | 2018-09-30 22:44 | NUR ---
PT RESTING IN BED, EYES OPEN, WATCHING TELEVISION. BED ALARM ON FOR SAFETY, CALL LIGHT IN REACH. ASPIRATION PRECAUTIONS IN PLACE, HOB ELEVATED.
--- NOTE | 2018-09-30 23:46 | NUR ---
PT INCONTINENT OF URINE, ADRIANA CARE COMPLETE. NEW ATTENDS IN PLACE. PT ASSISTED WITH TURNING AND TOLERATED REPOSITIONING WELL. ASPIRATION PRECAUTIONS IN PLACE, NO FURTHER NEEDS. CALL LIGHT IN REACH. BED ALARM ON FOR SAFETY.
--- NOTE | 2018-10-01 00:15 | NUR ---
ASSISTED PT WITH POSITIONING, WARM BLANKET ALSO PROVIDED. NO NEW NEEDS, CALL LIGHT IN REACH. BED ALARM ON FOR SAFETY.
--- NOTE | 2018-10-01 01:10 | NUR ---
PT RESTING IN BED, EYES CLOSED, RR WNL. NO SIGNS OF DISTRESS NOTED, PT APPEARS COMFORTABLE. CALL LIGHT IN REACH, HOB ELEVATED. BED ALARM ON FOR SAFETY.
--- NOTE | 2018-10-01 02:05 | NUR ---
PT RESTING IN BED AND LAUGHING WHILE WATCHING TELEVISION. PT STATES, "THE SHOW IS INTRIGUING". PT APPEARS IN GOOD SPIRITS, SMILING NOTED. DENIES NEEDS, CALL LIGHT IN REACH.
--- NOTE | 2018-10-01 03:28 | NUR ---
PT INCONTINENT OF URINE, ADRIANA CARE COMPLETE, NEW ATTENDS IN PLACE. PT ASSISTED WITH TURNING AND REPOSITIONING IN BED. ASSESSMENT COMPLETE, NO NEW CONCERNS. PT A/O TO SELF, INTERACTING STAFF, AND APPEARS IN GOOD SPIRITS. TOLERATED REPOSITIONING WELL. BED ALARM ON FOR SAFETY, CALL LIGHT IN REACH. HOB ELEVATED FOR ASPIRATION PRECAUTIONS. FRESH WATER AT BEDSIDE.
--- NOTE | 2018-10-01 05:42 | NUR ---
VS AND I&O'S COMPLETE. PT INCONTINENT OF URINE, ADRIANA CARE COMPLETE AND DRY ATTENDS IN PLACE. PT REPOSITIONED IN BED, SCHEDULED THYROID MEDICATION ADMINISTERED. FRESH WATER AT BEDSIDE. NO FURTHER NEEDS, CALL LIGHT IN REACH. BED ALARM ON FOR SAFETY. ASPIRATION PRECAUTIONS IN PLACE.
--- NOTE | 2018-10-01 05:43 | NUR ---
PT HAD UNEVENTFUL NIGHT. PT A/O TO SELF, BED ALARM ON FOR SAFETY. VSS, PT ON RA. 60 G CARB DIET, TOLERATING WELL, INSULIN SS AND LANTUS ADMINISTERED. PT DENIED NAUSEA AND PAIN THIS SHIFT. INCONTINENT OF URINE, NO BM THIS SHIFT.
--- NOTE | 2018-10-01 08:10 | NUR ---
PT SITTING UP IN BED EATING BREAKFAST, WATCHING TV AND LAUGHING OFF AND ON. CALL LIGHT WITHIN REACH. BED ALARM ON.
--- NOTE | 2018-10-01 08:46 | NUR ---
PATIENT SITTING UP IN BED EATING BREAKFAST. CALL LIGHT IN REACH. NO FURTHER NEEDS AT THIS TIME.
--- NOTE | 2018-10-01 10:48 | NUR ---
PT SITTING UP AT 90 DEGREES EATING BREAKFAST INDEPENDENTLY. ORIENTED TO SELF NAME ONLY. APPEARS TO HAVE DIFFICULTY FINDING WORDS OR TRACKING THOUGHTS. PT IS SMILING AND TALKATIVE THIS AM. DENIES PAIN. BED ALARM ON. PT VISIBLE FROM NURSES STATION.
--- NOTE | 2018-10-01 12:40 | NUR ---
PT SITTING UP IN BED VISITING WITH FAMILY. ATE 95% OF LUNCH, INDRA WELL. PT AND FAMILY DENY NEEDS OR CONCERNS AT THIS TIME. CALL LIGHT WITHIN REACH. BED ALARM ON.
--- NOTE | 2018-10-01 12:45 | NUR ---
CALLED TALKED WITH LENORA THIS AM REGARDING THIS PT SHE SAID TO SEND IT ON OVER. FAXED FACE SHEET, ER NOTES AND SUMMARY, H AND P, PROG NOTES, OT AND PT EVALS AND NOTES TO [facility]. RECIEVED FAX CONFIRMATION.
--- NOTE | 2018-10-01 12:54 | NUR ---
TALKED WITH DR HUFF WHO STATED THAT HE HAD TALKED WITH THE FAMILY AND THEY WERE ALL ON BOARD TO HAVE HIM GO DOWN TO [facility] FOR REHAB. SO TALKED WITH LENORA THIS AM, FAXED CHART NOTES TO [facility]. AWAITING MEETING WITH PT AND DAUGHTERS. RECIEVED A FAX CONFIRMATION.
--- NOTE | 2018-10-01 13:50 | NUR ---
CARE CONFERENCE ALL PRESENT: PT, PT JUSTIN, DAUGHTERS JOSESITO, AND ELINOR, MYSELF FROM CASE MANAGEMENT, DR HUFF. CONTRARY TO DISCUSSION THAT WAS HAD THIS AM REGARDING PT GOING TO [facility], FAMILY STATES THEY REALLY DO NOT WANT HIM TO GO TO [facility], THEY WOULD PREFER SOMEPLACE IN [place], EITHER [place], [facility], OR [facility] IN THE [place]. SO I SAID I WOULD LOOK INTO THEM AND GET BACK TO THEM--DAUGHTERS BOTH WANT JUSTIN TO RECIEVE THE INFORM IF THEY ARE NOT HERE. WE ALSO TALKED ABOUT WHAT THEY ARE GOING TO WANT FROM/OUT OF HIM.- I TOLD THEM THEY WOULD NEED TO BRING SOME COMFORTABLE CLOTHES UP AND TENNIS--OT WILL WORK WITH HIM ON DRESSING HIMSELF. MEDICARE WOULD LIKE THEM IN THE CHAIRS FOR MEALS.
--- NOTE | 2018-10-01 14:05 | NUR ---
PT RESING IN BED. PT HAS FAMILY IN ROOM.
--- NOTE | 2018-10-01 14:30 | NUR ---
AFTER CARE CONFERENCE I CALLED AND THANKED [facility] FOR THEIR SERVICE BUT THAT THE FAMILY DOESN'T WANT HIM TO GO THERE SO TO PLEASE [facility] CHART NOTES. THESE INCLUDED FACE SHEET, ER NOTES AND SUMMARY, H AND P, PROG NOTES, PT AND OT EVAL AND NOTES TO [facility] IN [facility].
--- NOTE | 2018-10-01 17:00 | NUR ---
THIS RN AND BLANKA HINKLE ASSISTED PT UP IN BED TO EAT DINNER HE REFUSED TO GET TO CHAIR. PT AND DAUGHTER PRESENT HELPING TO SET UP HIS DINNER TRAY. PT THEN BECAME AGITATED, PUSHED THE TRAY AWAY AND ATTEMPTED TO GET OUT OF BED. PT STATES "I DON'T WANT TO EAT, GET THAT AWAY FROM ME." THIS RN AND ANTONIO PERERA ATTEMPTED TO CHANGE ATTENDS THINKING AGITATION MAY BE RELATED.PT BECAME MORE AGITATED, HAD INCONTINENT VOID IN THE BED AND CONTINUED TO TRY TO GET OUT OF BED. ASSISTED PT WITH GAIT BELT AND WALKER TO STAND AT EDGE OF BED WHILE BED WAS CHANGED AND NEW ATTENDS WERE APPLIED. PT SAT BACK DOWN ON THE BED BUT REFUSING TO SIT IN BED OR EAT DINNER. PT FAMILY LEFT ROOM SHORTLY AFTER PT BECAME AGITATED. PT CURRENTLY SITTING ON THE EDGE OF THE BED WITH GREGORY PERERA REMAINING WITH PT FOR SAFETY.
--- NOTE | 2018-10-01 17:11 | NUR ---
pt sitting on side of bed. pt confused and refusing dinner.
--- NOTE | 2018-10-01 18:15 | NUR ---
PT SITTING UP AT EDGE OF BED. GREGORY PERERA PRESENT WITH PT. PT AGREED TO EAT DINNER. PT CALM AND SAFE LONG SOMEONE IS AT THE BEDSIDE WITH HIM. PT REFUSING TO LIE BACK IN BED AT THIS TIME.
--- NOTE | 2018-10-01 19:30 | NUR ---
REPORT RECEIVED FROM DAY SHIFT RNGAVI. PT SITTING ON THE SIDE OF THE BED WITH SCHOOL BUS DRIVER/MECHANIC PRESENT. PT ORIENTED TO SELF. RR EVEN AND UNLABORED. DENIES NEEDS AT THIS TIME. CALL LIGHT IN REACH.
--- NOTE | 2018-10-01 21:25 | NUR ---
PATIENT ASSISSTED INTO BED. PATIENTS ATTEND CHANGED AND ADRIANA CARE COMPLETED. PATIENT WAS INCOTNINENT OF URINE. PATIENTS VITALS TAKEN AND RECORDED. PATIENTS INTAKE AND OUPUT RECORDED. FAMILY IS LEAVING FOR THE EVENING. BED ALARM PLACED ON FOR SAFETY. CALL LIGHT IN REACH.
--- NOTE | 2018-10-01 22:10 | NUR ---
PT IN BED RESTING WITH EYES CLOSED. ASSESSMENT COMPLETE. PM LANTUS GIVEN, 3U SS INSULIN GIVEN FOR BS OF 221. RR EVEN AND UNLABORED. BED ALARM ON FOR PT SAFETY. CALL LIGHT IN REACH.
--- NOTE | 2018-10-02 00:25 | NUR ---
PT IN BED RESTING WITH EYES CLOSED. RR EVEN AND UNLABORED. BED ALARM ON. CALL LIGHT IN REACH.
--- NOTE | 2018-10-02 00:58 | NUR ---
LIBBY DEVINE AND THIS CERTIFIED CODING SPECIALIST CHANGED PATIENT'S WET ATTENDS.
--- NOTE | 2018-10-02 02:15 | NUR ---
PT IN BED, RESTLESS AND MOANING. ATTENDS CHANGED. PRN TYLENOL GIVEN FOR SIGNS OF DISCOMFORT. PT SWALLOWED WITHOUT DIFFICULTY, NO CHOKING NOTED. BED ALARM ON FOR PT SAFETY. CALL LIGHT IN REACH.
--- NOTE | 2018-10-02 04:10 | NUR ---
PT RESTING IN BED WITH EYES CLOSED. RR EVEN AND UNLABORED. BED ALARM ON FOR PT SAFETY. CALL LIGHT IN REACH.
--- NOTE | 2018-10-02 05:14 | NUR ---
PT RESTED WELL THROUGH OUT THE NIGHT. MEDICATED WITH PRN ACETEMINOPHEN FOR SIGNS OF DISCOMFORT. SS INSULIN GIVEN LAST NOC FOR BS OF 221. PT INCONTINENT OF URINE, ADRIANA CARE AND CLEAN ATTENDS PROVIDED. NO S/SX OF ASPIRATION NOTED. LUNG SOUNDS CLEAR. BED ALARM ON FOR PT SAFETY.
--- NOTE | 2018-10-02 06:56 | NUR ---
PT INCONTINENT OF URINE, ATTENDS CHANGED ADRIANA CARE COMPLETE. AM MEDS GIVEN, PT NOT COOPERATIVE. BED ALARM ON FOR PT SAFETY. CALL LIGHT IN REACH.
--- NOTE | 2018-10-02 08:00 | NUR ---
HOME ENERGY CONSULTANT COLLECT CBG THIS MORNING 186. PATIENT NOT WANTING TO WAKE UP FOR BREAKFAST WILL CONTINUE TO ENCOURAGE. THIS NURSE PROVIDING 1:1 PATIENT IS SLEEPING.
--- NOTE | 2018-10-02 09:30 | NUR ---
PT RESTING QUIETLY IN BED. EYES CLOSED, RESP EVEN AND UNLABORED. FAMILY REQUESTED TO LET PATIENT REST FOR A WHILE LONGER BEFORE MED ADMINISTRATION.
--- NOTE | 2018-10-02 10:00 | NUR ---
UPDATED PT DAUGHTERS THAT WE WERE STILL WAITING FOR A REPLY FROM [facility]. THEY HAD STATED THEY FELT DAD WAS AGITATED SLIGHTLY DURING THE NIGHT BECAUSE HE THOUGHT HE WAS GOING TO BE PLACED IN SNF AND LEFT THERE FOR THE REST OF HIS LIFE. I REASSURED THE FAMILY THAT OUR GOAL IS FOR HIM TO GO THERE FOR A SHORT PERIOD OF TIME TO GAIN BACK HIS STRENGTH AND BE ABLE TO RETURN HOME AND CONT WITH HOME HEALTH PT. ALSO THE DAUGHTERS TALKED WITH ME ABOUT THE [facility]--THEY THOUGHT JUST BECAUSE HE WAS A VET THAT HE WOULD HAVE UNLIMITED SERVICES. I HAD TALKED TO [facility] YESTERDAY AND THEY TOLD ME HE IS 0% SERVICE CONNECTED AND I DON'T BELIEVE THE FAMILY UNDERSTOOD WHAT THAT MEANT SO I EXPLAINED TO THEM AND THEN THEY STATED UNDERSTANDING THAT IT IS NOT THAT HE DOESN'T HAVE VA BENEFITS JUST DOESN'T HAVE SOME SERVICES THAT ARE CONNECTED WITH SERVICE CONNECTED. I ALSO EXPLAINED THAT THE [facility] STATED THAT THE PT HAD NOT BEEN EVALUATED OR SEEN A DR UP THERE. THE FAMILY SAID YES HE HAD. HE WAS UP THERE IN THE 80'S FOR DRUG AND ALCOHOL ADMISSION. I JUST SAID IF THEY WANTED TO RESEARCH FURTHER THAT THEIR FATHER WOULD PROBABLY HAVE TO HAVE A SERVICE CONNECTION ESTABLISHMENT VISIT WITH THE [facility]. THEY STATED UNDERSTANDING.
--- NOTE | 2018-10-02 10:19 | NUR ---
PATIENT IN BED RESTING WITH EYES CLOSED, FAMILY AND RN IN ROOM. NO VOID RN NOTIFIED. CALL LIGHT IN REACH. NO FURTHER NEEDS AT THIS TIME.
--- NOTE | 2018-10-02 10:37 | NUR ---
BLADDER SCAN DONE, 809 ML. RN NOTIFIED.
--- NOTE | 2018-10-02 10:45 | NUR ---
RECEIVED A PHONE CALL FROM SHADE [facility] STATING HE HAD TALKED WITH THE PT AND NOW WAS WAITING ON A CALL FROM THE EMMA AT [facility] TO BE SURE IF THE PT STAYED MORE THAN 20 DAYS THEY WOULD BOW MAKER THE 20 PERCENT OF THE PART THAT MEDICARE WON'T PAY. INFORMED THE FAMILY OF WHY THE WAIT.
--- NOTE | 2018-10-02 11:00 | NUR ---
PT HAS HAD NO VOID YET THIS SHIFT. BLADDER SCANNED FOR 809ML. RECIVED ORDER FOR CORDERO PLACEMENT AND PLACED AT THIS TIME WITH 550ML OF IMMEDIATE URINE RETURN. PT ASSISTED TO SIT UP IN BED AT 90 DEGREES. PT REMAINS EXTREMELY DROSWY BUT ABLE TO TAKE PILLS. ONLY OPENS EYES FOR A SHORT PERIOD OF TIME AND FALLS BACK ASLEEP. ORIENTED TO SELF ONLY. DR. HUFF AWARE. FAMILY AT BEDSIDE. BED ALARM ON.
--- NOTE | 2018-10-02 13:42 | NUR ---
PT MORE ALERT. TALKING AND LAUGHING WITH STAFF AND FAMILY. REMAINS ONLY ORIENTED TO SELF. EATING LUNCH WITH ASSISTANCE FROM DAUGHTER. BED ALARM ON.
--- NOTE | 2018-10-02 14:00 | NUR ---
REPORT RECEIVED FROM MANAN GATICA. INTRODUCED SELF TO FAMILY AND PT. PT EATING LUNCH WITH ASSIST FROM .
--- NOTE | 2018-10-02 14:14 | NUR ---
PATIENT IN BED WATCHING TV, FAMILY IN ROOM. DEPENDS CHANGED, ADRIANA CARE DONE. FRESH WATER GIVEN. CALL LIGHT IN REACH. NO FURTHER NEEDS AT THIS TIME.
--- NOTE | 2018-10-02 14:27 | NUR ---
PT SITTING UP IN BED-DAUGHTER TRYING TO ASSIST PT WITH LUNCH. HE WOULD TAKE A BITE, THEN KIND OF KNODD OFF. HE WOULD ALSO DO THIS WHEN I WAS TALKING TO HIM. PT IS TO BE TRANSFERRED [facility]ER [facility] TO A SNF. PT AND FAMILY REQUESTED PRAYER, WILL FOLLOW NEEDED .
--- NOTE | 2018-10-02 15:00 | NUR ---
SHADE FROM [facility] CALLED AND STATED THAT HE LEFT ANOTHER MESSAGE AT [facility] AND ASKED IMELDA TO CALL HIM. I WENT TO TALK WITH FAMILY AND JOSESITO STATED THEY SHE HAD RECENTLY GOTTEN A CALL FROM HER CO WORKER AND THEY WERE TALKING WITH NIDIA AT [facility] TO HAVE MAXINE GONCALVESN BRING OVER A [employer] FORM FOR HER TO FILL OUT FOR HER TO EVALUATED PT AND SEE IF HE IS ELIGIBLE FOR MEDICAID. IF HE ISN'T SHE STATES THEN [facility] WILL KICK IN.
--- NOTE | 2018-10-02 16:30 | NUR ---
TALKED WITH THE PT WE ARE STILL AWAITING AN ANSWER ABOUT THE FUNDING NO ONE HAS HEARD ANYTHING.
--- NOTE | 2018-10-02 17:17 | NUR ---
BOOSTED PT UP IN BED PER FAMILY REQUEST. PT GROANS LOUDLY WHEN MOVED BUT DENIES PAIN. FAMILY STATES HE IS A YELLER. FAMILY FEEDING PT. DENIES FURTHER CONCERNS.
--- NOTE | 2018-10-02 17:42 | NUR ---
ADMINISTERED 3 UNITS INSULIN FOR BS OF 197. WAITED UNTIL PT WAS EATING WITH FAMILY. DENIES CONCERNS.
--- NOTE | 2018-10-02 18:02 | NUR ---
PATIENT IN BED WATCHING TV, IN ROOM. FRESH WATER GIVEN. WARM BLANKET GIVEN. CALL LIGHT IN REACH. NO FURTHER NEEDS AT THIS TIME.
--- NOTE | 2018-10-02 19:30 | NUR ---
RECEIVED REPORT FROM DAY SHIFT RN. PATIENT IS RESTING IN BED WITH EYES CLOSED, RR 17. CALL LIGHT IN REACH. BED ALARM IS ON FOR SAFETY.
--- NOTE | 2018-10-02 21:34 | NUR ---
VS were complete. I&Os still need done. His awad was replaced by one of the RNs so i am waiting for more output, his water was spilled so staff is unsure how much was taken in. standing by.
--- NOTE | 2018-10-02 21:49 | NUR ---
WHEN ROOM WAS ENETERED PATIENT WAS PULLING AT CORDERO. BLOODY DRAINAGE NOTED FROM MEATUS. CORDERO CARE COMPLETED. ADRIANA CARE COMPLETED. PATIENTS CORDERO REMAINS PATENT URINE IS STILL NOTED TO BE DRAINING. ATTENDS PLACED TO DETER PATIENT FROM PULLING ON CORDERO. NEW STAT LOCKED PLACED. PATIENT EDUCATED TO NOT PULL ON ANY TUBES. UNABLE TO ASSES PATIENTS UNDERSTANDING OF EDUCATION. PATIENTS BEDDING CHANGED AND GOWN CHANGED. PATIENT REPOSITIONED IN BED. PATIENTS BED ALARM PLACED ON FOR SAFETY AND CALL LIGHT IN REACH.
--- NOTE | 2018-10-02 22:07 | NUR ---
PATIENTS EVENING MEDICATIONS GIVEN PER ORDER. CORDERO EMPTIED. PATIENT DENIES ANY PAIN. PATIENT IS MORE AWAKE AT THIS TIME. PATIENT DENIES ANY NEEDS. CALL LIGHT IN REACH. BED ALARM ON FOR SAFETY.
--- NOTE | 2018-10-02 23:21 | NUR ---
PATIENT RESPOSITIONED IN BED. PATIENT PROVIDED WITH WARM TEA. PATIENTS CORDERO HAS OUPUT NOTED IN BAG. PATIENT DENIES ANY NEEDS. CALL LIGHT IN REACH. BED ALARM ON FOR SAFETY.
--- NOTE | 2018-10-03 01:12 | NUR ---
PATIENT REPOSITIONED IN BED AND PANTS PLACED ON. PATIENTS STAT LOCKED REPLCED PATIENT HAD PULLED IT OFF. PATIENT COMPLAINS OF PAIN IN HIS GROIN AREA. PATIENT GIVEN PRN TYLENOL PER ORDER. PATIENTS CALL LIGHT IS WITHIN REACH. PATIENTS BED ALARM IS ON FOR SAFETY.
--- NOTE | 2018-10-03 02:13 | NUR ---
PATIENT IS RESTING IN BED FIDGETING WITH COVERS. PATIENT DENIES ANY NEEDS. CLL LIGHT IN REACH.
--- NOTE | 2018-10-03 02:43 | NUR ---
PATIENT REPOSITIONED. PATIENT REMINDED NOT TO PULL ON CORDERO CATHETER. PATIENT ASSESEMENT COMPLETED. PATIENT OFFERED SIPS OF WATER. NO NEEDS NOTED. CALL LIGHT IN REACH. BED ALARM ON FOR SAFETY.
--- NOTE | 2018-10-03 04:45 | NUR ---
PATIENT IS RESTING IN BED WITH EYES CLOSED, RR 17. CALL YOMI SERNA. BED ALARM ON FOR SAFETY.
--- NOTE | 2018-10-03 05:10 | NUR ---
PATIENT IS ON ADA DIET. PATIENT IS A 2PA PILLO. WORKING WITH PT/OT. PATIENT HAS CORDERO IN PLACE. PATIENT PULLED ON CORDERO MULT TIMES AND NOW HAS A SMALL AMOUNT OF BLOODY DRAINAGE. PATIENT MARTÍNEZ NO IV. PATIENT HAS BS CHECKS. PATIENT IS ON RA. PATIENT IS ORIENTED TO SELF ONLY. REORIENT NEEDED. PATIENTS BED ALARM IS ON FOR SAFETY.
--- NOTE | 2018-10-03 05:54 | NUR ---
PATIENTS VITALS TAKEN AND RECORDED. PATIENT REPOSITIONED IN BED. PATIENTS CORDERO EMPTIED. INTAKE AND OUPUT RECORDED. PATIENT ONLY OREINTED TO SELF. PATIENT SHOOK HEAD NO WHEN ASKED IF HE HAS ANY NEEDS. CALL LIGHT IN REACH.
--- NOTE | 2018-10-03 07:31 | NUR ---
REPORT FROM MANAN TURCIOS. PT ASLEEP IN BED AFTER NOT SLEEPING MUCH DURING NIGHT. TRIED TO TURP SELF, HOWEVER URINE IS CLEAR IN CORDERO BAG.
--- NOTE | 2018-10-03 09:13 | NUR ---
TRANSITIONED BED INTO CHAIR POSITION ALL THE BIGGER CHAIRS ARE TAKEN RIGHT NOW. PT FEEDING SELF BREAKFAST AND COFFEE AND IS PLEASANT AND COOPERATIVE. ANSWERS MOST QUESTIONS APPROPRIATLY. ORIENTED TO SELF AND IN HOSPITAL. HR IRREGULAR IN MORNING ASSESSMENT. DR TEJEDA NOTIFIED.
--- NOTE | 2018-10-03 09:38 | NUR ---
PT REMAINS SITTING UP RIGHT IN CHAIR POSITION. DAUGHTER IN ROOM. HR NO LONGER IRREGULAR.
--- NOTE | 2018-10-03 10:04 | NUR ---
PATIENT SITTING UP IN BED, FAMILY IN ROOM. FRESH WATER GIVEN. CALL LIGHT IN REACH. NO FURTHER NEEDS AT THIS TIME.
--- NOTE | 2018-10-03 10:56 | NUR ---
PT SITTING UP IN BED, WATCHNG TV. DAUGHTER AT BS,ON PHONE. PTS' RESPONSES CLEARER TODAY AND UNDERSTANDABLE. GAVE A BLESSING, WILL FOLLOW NEEDED
--- NOTE | 2018-10-03 12:46 | NUR ---
FIXED PT BED SO IT IS UPRIGHT IN CHAIR POSITION. FAMILY IN ROOM. PT ATE SMALL AMT OF LUNCH AND DENIES FURTHER CONCERNS.
--- NOTE | 2018-10-03 13:06 | NUR ---
RECIEVED BEDSIDE REPORT FROM MANAN MCBRIDE. PT SITTING UP IN RECLINER, PERSONAL SUPPLIES AND CALL LIGHT IN REACH. FRESH ICE WATER PROVIDED TO PT BY MANAN MCBRIDE. PT DENIED OTHER NEEDS AT THIS TIME.
--- NOTE | 2018-10-03 13:47 | NUR ---
PT SITTING UP IN BED, ASSISTED TO REPOSITION FOR COMFORT. PT ALERT, ORIENTED TO SELF, TO FAMILY, DISORIENTED TO PLACE, EVENTS, TIME, DATE. PT DEMONSTRATED APROPRIATE USE OF INSENTIVE SPIROMETER, GOT UP TO 1750. PERSONAL SUPPLIES AND CALL LIGHT IN REACH. PT REMINDED TO USE CALL LIGHT FOR ASSISTANCE. AND DAUGHTER AT BEDSIDE.
--- NOTE | 2018-10-03 14:35 | NUR ---
PATIENT SITTING UP IN BED, FAMILY IN ROOM. FRESH WATER GIVEN. CALL LIGHT IN REACH. NO FURTER NEEDS AT THIS TIME.
--- NOTE | 2018-10-03 16:30 | NUR ---
NOTIFIED DR. TEJEDA THAT PT HAS HAD LOW URINE OUTPUT FROM CORDERO, ONLY 100 ML OUT FROM [address] TEJEDA THAT WHEN THIS RN ASKED PT HE DENIED FEELING DIZZY. NOTIFIED DR. TEJEDA THAT THIS RN ENCOURAGED PT TO INCREASE HIS PO FLUID INTAKE. PT JUST HAD BED BATH AND LINNEN CHANGED, AND IS NOW SITTING UPRIGHT WITH BED IN CHAIR POSITION, DRINKING WATER. FAMILY AT BEDSIDE, CALL BUTTON AND PERSONAL SUPPLIES IN REACH.
--- NOTE | 2018-10-03 16:40 | NUR ---
PATIENT GIVEN BEDBATH BY THIS AUTOMOTIVE PRODUCTION WORKER AND RN YOVANNY. ADRIANA CARE, CATH CARE, SKIN CARE DONE. NEW DEPNDS, NEW GOWN PROVIDED. CALL LIGHT IN REACH. NO FURTHER NEEDS AT THIS TIME.
--- NOTE | 2018-10-03 17:14 | NUR ---
PT ALERT, ORIENTED TO SELF AND FAMILY, DISORIENTED TO ALL OTHERS. PLEASANT, COOPERATIVE WITH CARES. ATE 100% OF BREAKFAST, FED HIMSELF PER REPORT FROM RAE HINKLE, AND ATE 40% OF LUNCH. PT IS NOW EATING DINNER. PT HAS CORDERO CATH IN PLACE. HAD SMALL AMOUNT OF DRIED BLOODY DRAINAGE AT URETHRAL MEATUS WITH CATH CARE/BED BATH. PER REPORT FROM MANAN MCBRIDE, PT HAD TUGGED ON CATH DURING PRIOR SHIFT. URINE OUTPUT WAS LOW FROM 1000 TO 1400, ONLY 100 ML. PT ENCOURAGED TO DRINK MORE PO FLUIDS. FAMILY HAS BEEN AT BEDSIDE FROM TIME THIS RN CAME ON SHIFT AT APROXIMATELY 1300. BED BATH AND LINNEN CHANGE COMPLETED. PER REPORT FROM MANAN MCBRIDE, PT WORKED WITH PHYSICAL THERAPY, AMBULATED IN HALLWAY.
[2018-10-03] MEDS ORDERED: TAMSULOSIN HCL0.4 MG PO (17:18)
[2018-10-03] MEDS ORDERED: TYLENOL325 MG PO (17:18)
[2018-10-03] MEDS ORDERED: METOPROLOL SUC100 MG PO (17:18)
--- NOTE | 2018-10-03 17:20 | NUR ---
CARE CONFERENCE ATTENDEES: PT, PT JUSTIN, SON DESIRE, DAUGHTERS ELINOR AND JOSESITO AND HER , RODRIGO CASTANO RN, AND MYSELF FROM CASE MANAGEMENT. AFTER MULTIPLE PHONE CALLS BACK AND FORTH WITH [facility] AND [facility]URSES, THE THOUGHT PROCESS IS SHADE FROM [facility] STATES THAT KNOWING THERE IS NO SECONDARY COVERAGE BY THE [place] AT HIS FACILITY HE STATES THAT LONG THE FAMILY KNOWS THAT HE IS WELCOME TO STAY AT [facility] UP TO THE 21ST DAY-[facility] IS THE CONTRACTED FACILITY THROUGH [facility] [place] AND THEY WOULD HAVE TO BE ABLE TO TAKE THE PT IF HE WERE TO NEED CONTINUED SNF COVERAGE. I TALKED TO GEMMAFILEMON AT [facility] AND SHE STATED SHE DIDN'T THINK THAT WOULD BE A PROBLEM FOR HIM TO COME THERE. I TALKED WITH THE FAMILY AND INFORMED THEM OF THIS AND THEY STATE UNDERSTANDING THAT IF THE PT IS IN NEED OF CONT SNF SERVICES HE WOULD NEED TO CHANGE FACILITIES TO [facility] ON DAY 21. ALL QUESTIONS WERE ASKED AND ANSWERED. PT TO GO TO [facility] IN THE AM.
[2018-10-03] MEDS ORDERED: HEALTHYLAX17 GM PO (17:22)
--- NOTE | 2018-10-03 18:22 | NUR ---
PT ATE 50% OF DINNER. GAVE BISACODYL SUPPOSITORY [place]. PT POSITIONED WITH PILLOWS UNDER LEFT HIP.
--- NOTE | 2018-10-03 18:28 | NUR ---
PATIENT IN BED WATCHING TV, FAMILY IN ROOM. FRESH WATER GIVEN. CALL LIGHT IN REACH. NO FURTHER NEEDS AT THIS TIME.
--- NOTE | 2018-10-03 19:52 | NUR ---
REPORT RECEIVED, PT RESTING IN BED WATCHING TV, NO REQUESTS AT THIS TIME, CALL LIGHT WITHIN REACH. BED ALARM ON.
--- NOTE | 2018-10-03 21:24 | NUR ---
PT RESTING IN BED, EVENING MEDS ADMINISTERED, PT'S VSS, PT ALERT, ORIENTED ONLY TO SELF, PT APPROPRIATE BUT CONFUSED, CORDERO CATH DRAINING WNL. PT [place], DIFFICULTY FOLLOWING DIRECTIONS AT TIMES. LS CLEAR/DIMINISHED, BT ACTIVE, ABDOMEN NONTENDER, CBG 191, INSULIN COVERAGE PROVIDED PER EMAR. PT WAS ABLE TO DRINK ENTIRE MIRALAX MIXTURE, GOOD PO INTAKE, PT STILL HAS NOT HAD A BM. WILL CONTINUE TO MONITOR. NO REQUESTS AT THIS TIME. CALL LIGHT WITHIN REACH. BED ALARM ON.
--- NOTE | 2018-10-03 23:00 | NUR ---
PT REPOSITIONED IN BED WITH ASSISTANCE FROM NIDIA HINKLE, PT TOLERATED WELL. NO FURTHER NEEDS, CALL LIGHT WITHIN REACH. BED ALARM ON.
--- NOTE | 2018-10-04 01:26 | NUR ---
PT RESTING IN BED, EYES CLOSED, BREATHS EVEN, UNLABORED, NO REQUESTS AT THIS TIME, CALL LIGHT WITHIN REACH. CORDERO CATH DRAINING WNL.
--- NOTE | 2018-10-04 03:42 | NUR ---
PT RESTING IN BED, EYES CLOSED, BREATHS EVEN, UNLABORED, NO REQUESTS AT THIS TIME, CALL LIGHT WITHIN REACH.
--- NOTE | 2018-10-04 06:30 | NUR ---
MORNING MED ADMINISTERED, PT TOLERATED PO INTAKE WELL. VSS, URINE OUTPUT QS, CORDERO CATH DRAINING WNL. NO REQUESTS AT THIS TIME, NO SIGNS OF DISTRESS OR AGITATION. CALL LIGHT WITHIN REACH. BED ALARM ON.
--- NOTE | 2018-10-04 07:15 | NUR ---
BEDSIDE HANDOFF REPORT RECEIVED FROM DIRECTOR SOFTWARE RN. PT RESTING QUIETLY IN BED. BED ALARM IN PLACE.
--- NOTE | 2018-10-04 08:45 | NUR ---
PT RESTING IN BED. PT SLEEPY, DISORIENTED TO PLACE, DATE AND EVENTS. PT WITH LARGE BM, PERICARE PERFORMED. PT ON ROOM AIR, LUNG SOUNDS CLEAR. PT DENIES PAIN. PT WITH CORDERO CATH, DRAINING LIGHT YELLOW URINE, QS. PT WITHOUT EDEMA, CMS INTACT. P.T. TO BEDSIDE TO AMBULATE PT. PT ASSISTED TO ORDER BREAKFAST. PT DENIES OTHER NEEDS AT THIS TIME.
--- NOTE | 2018-10-04 10:16 | NUR ---
UPDATED ON PT STATUS, PLAN FOR DISCHARGE AND OVERNIGHT EVENTS. PT SITTING IN CHAIR, EATING BREAKFAST.
--- NOTE | 2018-10-04 12:44 | NUR ---
PT SITTING IN CHAIR, FAMILY GETTING PT READY TO TRANSFER TO [facility]. ENCOURAGED FAMILY TO CONTINUE TO FOLLOW-UP ON PLAN OF CARE WITH STAFF THERE. FAMILY REQUESTED PRAYER, DISCOVERED PT IS "CHIEF" OF [facility]. WILL FOLLOW NEEDED
--- NOTE | 2018-10-04 13:38 | NUR ---
PT DISCHARGED TO SNF, REPORT CALLED TO NURSE MARGIE. PT TRANSPORTED BY [facility]. FAMILY SENT WITH SNF PACKET.
== END 2018-10-04 13:23 | DRG 725 ==
LOC: ED 20:10 → MS 22:49
PROVIDERS: ADMIT Student in an Organized Health Care Education/Training Program
DX: N40.1 Benign prostatic hyperplasia with lower urinary tract symptoms (principal); G93.41 Metabolic encephalopathy; N13.8 Other obstructive and reflux uropathy; I47.1 Supraventricular tachycardia; R33.8 Other retention of urine; E11.22 Type 2 diabetes mellitus with diabetic chronic kidney disease; N18.3 Chronic kidney disease, stage 3 (moderate); E03.9 Hypothyroidism, unspecified; F03.90 Unspecified dementia, unspecified severity, without behavioral disturbance, psychotic disturbance, mood disturbance, and anxiety; F39 Unspecified mood [affective] disorder; R29.810 Facial weakness; Z66 Do not resuscitate; Z79.82 Long term (current) use of aspirin; Z79.4 Long term (current) use of insulin; Z79.899 Other long term (current) drug therapy; Z88.5 Allergy status to narcotic agent; Z88.0 Allergy status to penicillin; Z88.8 Allergy status to other drugs, medicaments and biological substances
CPT/HCPCS: 36415; 51702; 70450; 71045; 74177; 80048; 80053; 81001; 82140; 82607; 82803; 83605; 83690; 83735; 83880; 84100; 84443; 85025; 85651; 87040; 87502; 97110; 97116; 97163; 97167; 97530; 99285-25; J1650; J1815; J7120; Q9967

== ENCOUNTER 2018-10-21 10:16 | Emergency (ER) | payer MEDICARE, OTHER ==
[~2018-10-21] VITALS: Ht 188 cm; Wt 129.5 kg
[~2018-10-21 10:16] MED LIST changes: +HEALTHYLAX17 GM PO; +TAMSULOSIN HCL0.4 MG PO; +TYLENOL325 MG PO
== END 2018-10-21 10:32 | disposition home or self-care (01) ==
LOC: ED 10:16
DX: T83.038A Leakage of other urinary catheter, initial encounter (principal)